=== PATIENT | female | born 1955 | race Caucasian/White ===

== ENCOUNTER 2020-03-06 10:36 | Inpatient (IN) | payer SELFPAY ==
[2020-03-06] MEDS ORDERED: SODIUM CHLORIDE 0.9% 500 ML INFUS.BAG IV ONE (11:56)
[2020-03-06] MEDS ORDERED: ACETAMINOPHEN 1000 MG/100 ML VIAL (NON FORMULARY) IVPB PRN (12:10)
[2020-03-06] MEDS ORDERED: ACETAMINOPHEN INJECTION 100 ML IVPB ONE (12:25)
[2020-03-06 12:27] LABS: EPI CELLS 19 /uL (0-25.1); HYALINE CASTS 1 /uL (0-3.1); PH,URINE 6.5 (5.0-8.0); URINE APPEARANCE CLEAR; URINE BACTERIA 893 /uL (0-1359); URINE BILIRUBIN NEGATIVE (NEGATIVE); URINE COLOR YELLOW; URINE GLUCOSE (UA) NEGATIVE (NEGATIVE); URINE KETONE TRACE (NEGATIVE); URINE LEUK ESTERASE NEGATIVE (NEGATIVE); URINE NITRITE NEGATIVE (NEGATIVE); URINE PROTEIN 2+ (NEGATIVE); URINE RBC 22 /uL (0-23.9); URINE WBC 4 /uL (0-25.8)
[2020-03-06 12:30] LABS: INR 0.99 (0.83-1.09)
[2020-03-06 12:31] LABS: BASO % 0.1 % (0-2.0); HEMATOCRIT 40.2 % (32.4-45.2); HEMOGLOBIN 13.6 GM/dL (10.7-15.3); LYMPH % 11.6 % (8-40); MCH 32.4 pg (25.7-33.7); MCHC 33.8 g/dl (32.0-36.0); MEAN CELL VOLUME 95.7 fl (80-96); MEAN PLT VOLUME 8.3 fl (7.5-11.1); MONO % 6.4 % (3.8-10.2); NEUT % 81.9 % (42.8-82.8); PLATELET COUNT 218 K/MM3 (134-434); RDW 13.1 % (11.6-15.6)
[2020-03-06 12:32] LABS: ACTIVATED PTT 29.4 SECONDS (25.2-36.5)
[2020-03-06 12:43] LABS: CHLORIDE 94 mmol/L (98-107); POTASSIUM 3.6 mmol/L (3.5-5.1); SODIUM 127 mmol/L (136-145)
[2020-03-06 12:45] LABS: CALCIUM 8.2 mg/dL (8.5-10.1)
[2020-03-06 12:47] LABS: ALBUMIN 3.1 g/dl (3.4-5.0); ANION GAP 8 MMOL/L (8-16); BLOOD UREA NITROGEN 12.2 mg/dL (7-18); CO2 25 mmol/L (21-32); GLUCOSE,RANDOM 121 mg/dL (74-106)
[2020-03-06 12:50] LABS: CREATININE 0.7 mg/dL (0.55-1.3); SGOT/AST 55 U/L (15-37); SGPT/ALT 29 U/L (13-61)
[2020-03-06 12:51] LABS: BILIRUBIN,TOTAL 0.6 mg/dL (0.2-1); TOT PROT 7.3 g/dl (6.4-8.2)
[2020-03-06 12:52] LABS: ALK PHOS 68 U/L (45-117)
[2020-03-06 12:54] LABS: LDH 391 U/L (84-246)
[2020-03-06] MEDS ORDERED: FAMOTIDINE 20 MG/50 ML IVPB 20 MG/50 ML MG IVPB ONE ×2 (12:55→13:02)
[2020-03-06] MEDS ORDERED: DEXAMETHASONE SOD PHOSPHATE 4 MG/1 ML VIAL IVPUSH ONE (13:29)
[2020-03-06] MEDS ORDERED: CEFTRIAXONE 1,000 MG in DEXTROSE 5%-WATER - 50 ML IVPB ONE (13:35)
[2020-03-06] MEDS ORDERED: DEXAMETHASONE SOD PHOSPHATE 10 MG/1 ML VIAL ONE (13:37)
[2020-03-06] MEDS ORDERED: CEFTRIAXONE 1 GM/50 ML BAG ONE (13:38)
[2020-03-06] MEDS ORDERED: ACETAMINOPHEN 1000 MG/100 ML VIAL (NON FORMULARY) IVPB SCH (15:00)
[2020-03-06 16:57] LABS: VENOUS BASE EXCESS -4.7 mmol/L (-2-2); VENOUS O2 SATURATION 91.4 % (70-80); VENOUS PH 7.405 (7.310-7.410)
[2020-03-06] MEDS ORDERED: REMDESIVIR 200 MG in SODIUM CHLORIDE 210 ML IVPB ONE (19:00)
[2020-03-07] MEDS ORDERED: ENOXAPARIN NA (PORCINE) 80 MG/0.8 ML DISP.SYRIN SQ SCH (10:00)
[2020-03-07] MEDS ORDERED: DEXAMETHASONE SOD PHOSPHATE 4 MG/1 ML VIAL IVPUSH SCH (10:00)
[2020-03-07] MEDS: ZINC SULFATE 220 MG CAPSULE (FP) PO SCH ×2 (10:24→21:05)
[2020-03-07] MEDS: ASCORBIC ACID 500 MG TABLET (FP) PO SCH ×2 (10:24→21:05)
[2020-03-07] MEDS: CHOLECALCIFEROL (VIT D3) 1,000 UNIT (25 MCG) TABLET PO SCH (10:24)
[2020-03-07 10:26] LABS: HEMATOCRIT 37.8 % (32.4-45.2); HEMOGLOBIN 12.9 GM/dL (10.7-15.3); MCH 32.6 pg (25.7-33.7); MCHC 34.1 g/dl (32.0-36.0); MEAN CELL VOLUME 95.5 fl (80-96); MEAN PLT VOLUME 8.2 fl (7.5-11.1); MONO % 7.4 % (3.8-10.2); NEUT % 79.6 % (42.8-82.8); PLATELET COUNT 228 K/MM3 (134-434); RBC 3.96 M/mm3 (3.60-5.2); RDW 13.5 % (11.6-15.6); WHITE BLOOD COUNT 8.5 K/mm3 (4.0-10.0)
[2020-03-07 10:49] LABS: POTASSIUM 3.6 mmol/L (3.5-5.1)
[2020-03-07 11:02] LABS: ALBUMIN 2.8 g/dl (3.4-5.0); CALCIUM 8.7 mg/dL (8.5-10.1)
[2020-03-07 11:03] LABS: BLOOD UREA NITROGEN 14.7 mg/dL (7-18)
[2020-03-07 11:05] LABS: CREATININE 0.6 mg/dL (0.55-1.3)
[2020-03-07 11:07] LABS: BILIRUBIN,TOTAL 0.5 mg/dL (0.2-1); TOT PROT 6.9 g/dl (6.4-8.2)
[2020-03-07] MEDS: AZITHROMYCIN IVPB 250 MG in DEXTROSE 5%-WATER - 250 ML IVPB SCH (12:20)
[2020-03-07] MEDS ORDERED: ACETAMINOPHEN 500 MG TABLET (FP) PO PRN (16:19)
[2020-03-07] MEDS: REMDESIVIR 100 MG in SODIUM CHLORIDE 230 ML IVPB SCH (18:01)
[2020-03-08 09:44] LABS: HEMATOCRIT 36.4 % (32.4-45.2); HEMOGLOBIN 12.4 GM/dL (10.7-15.3); LYMPH % 14.9 % (8-40); MCH 32.8 pg (25.7-33.7); MEAN CELL VOLUME 96.4 fl (80-96); MONO % 10.1 % (3.8-10.2); PLATELET COUNT 286 K/MM3 (134-434); RBC 3.78 M/mm3 (3.60-5.2); RDW 13.4 % (11.6-15.6); WHITE BLOOD COUNT 9.4 K/mm3 (4.0-10.0)
[2020-03-08] MEDS: CHOLECALCIFEROL (VIT D3) 1,000 UNIT (25 MCG) TABLET PO SCH (09:46)
[2020-03-08] MEDS: ENOXAPARIN NA (PORCINE) 40 MG/0.4 ML DISP.SYRIN SQ SCH (09:46)
[2020-03-08] MEDS: ZINC SULFATE 220 MG CAPSULE (FP) PO SCH ×2 (09:46→21:03)
[2020-03-08] MEDS: ASCORBIC ACID 500 MG TABLET (FP) PO SCH ×2 (09:46→21:03)
[2020-03-08] MEDS: DEXAMETHASONE SOD PHOSPHATE 4 MG/1 ML VIAL IVPUSH SCH (09:47)
[2020-03-08 09:52] LABS: POTASSIUM 3.8 mmol/L (3.5-5.1)
[2020-03-08 09:57] LABS: ALBUMIN 2.7 g/dl (3.4-5.0); BLOOD UREA NITROGEN 20.2 mg/dL (7-18); CALCIUM 8.2 mg/dL (8.5-10.1)
[2020-03-08 10:00] LABS: CREATININE 0.6 mg/dL (0.55-1.3)
[2020-03-08 10:02] LABS: TOT PROT 6.4 g/dl (6.4-8.2)
[2020-03-08 10:06] LABS: BILIRUBIN,TOTAL 0.5 mg/dL (0.2-1)
[2020-03-08] MEDS: FAMOTIDINE 20 MG TABLET PO SCH ×2 (14:28→21:03)
[2020-03-08] MEDS: AZITHROMYCIN IVPB 250 MG in DEXTROSE 5%-WATER - 250 ML IVPB SCH (14:51)
[2020-03-08] MEDS: REMDESIVIR 100 MG in SODIUM CHLORIDE 230 ML IVPB SCH (18:04)
[2020-03-08] MEDS ORDERED: ONDANSETRON 4 MG/2 ML VIAL IVPUSH ONE (21:40)
[2020-03-09 08:52] LABS: BASO % 0.1 % (0-2.0); EOS % 0.1 % (0-4.5); HEMATOCRIT 38.4 % (32.4-45.2); HEMOGLOBIN 13.1 GM/dL (10.7-15.3); LYMPH % 15.1 % (8-40); MCH 32.4 pg (25.7-33.7); MEAN CELL VOLUME 95.3 fl (80-96); MEAN PLT VOLUME 7.3 fl (7.5-11.1); MONO % 6.2 % (3.8-10.2); NEUT % 78.5 % (42.8-82.8); PLATELET COUNT 367 K/MM3 (134-434); RBC 4.03 M/mm3 (3.60-5.2); RDW 13.2 % (11.6-15.6); WHITE BLOOD COUNT 11.2 K/mm3 (4.0-10.0)
[2020-03-09 09:16] LABS: POTASSIUM 3.7 mmol/L (3.5-5.1)
[2020-03-09 09:22] LABS: BLOOD UREA NITROGEN 17.3 mg/dL (7-18); CALCIUM 8.3 mg/dL (8.5-10.1)
[2020-03-09 09:23] LABS: ALBUMIN 2.8 g/dl (3.4-5.0)
[2020-03-09] MEDS: ASCORBIC ACID 500 MG TABLET (FP) PO SCH ×2 (09:24→21:13)
[2020-03-09] MEDS: FAMOTIDINE 20 MG TABLET PO SCH ×2 (09:24→21:13)
[2020-03-09] MEDS: CHOLECALCIFEROL (VIT D3) 1,000 UNIT (25 MCG) TABLET PO SCH (09:24)
[2020-03-09] MEDS: DEXAMETHASONE SOD PHOSPHATE 4 MG/1 ML VIAL IVPUSH SCH (09:24)
[2020-03-09] MEDS: AZITHROMYCIN IVPB 250 MG in DEXTROSE 5%-WATER - 250 ML IVPB SCH (09:24)
[2020-03-09] MEDS: ENOXAPARIN NA (PORCINE) 40 MG/0.4 ML DISP.SYRIN SQ SCH (09:24)
[2020-03-09] MEDS: ZINC SULFATE 220 MG CAPSULE (FP) PO SCH ×2 (09:25→21:13)
[2020-03-09 09:26] LABS: CREATININE 0.7 mg/dL (0.55-1.3)
[2020-03-09 09:27] LABS: BILIRUBIN,TOTAL 1.3 mg/dL (0.2-1); TOT PROT 6.5 g/dl (6.4-8.2)
[2020-03-09] MEDS ORDERED: ONDANSETRON 4 MG/2 ML VIAL IVPUSH PRN (10:52)
[2020-03-09] MEDS: REMDESIVIR 100 MG in SODIUM CHLORIDE 230 ML IVPB SCH (18:33)
[2020-03-10 09:47] LABS: BASO % 0.1 % (0-2.0); EOS % 0.2 % (0-4.5); HEMATOCRIT 37.7 % (32.4-45.2); LYMPH % 6.7 % (8-40); MCHC 34.4 g/dl (32.0-36.0); MEAN CELL VOLUME 95.8 fl (80-96); MEAN PLT VOLUME 7.5 fl (7.5-11.1); MONO % 2.2 % (3.8-10.2); NEUT % 90.8 % (42.8-82.8); PLATELET COUNT 324 K/MM3 (134-434); RBC 3.94 M/mm3 (3.60-5.2); RDW 13.3 % (11.6-15.6); WHITE BLOOD COUNT 11.5 K/mm3 (4.0-10.0)
[2020-03-10 10:26] LABS: POTASSIUM 3.8 mmol/L (3.5-5.1)
[2020-03-10 10:32] LABS: ALBUMIN 2.6 g/dl (3.4-5.0)
[2020-03-10 10:35] LABS: CREATININE 0.7 mg/dL (0.55-1.3)
[2020-03-10 10:37] LABS: BILIRUBIN,TOTAL 0.8 mg/dL (0.2-1); TOT PROT 6.3 g/dl (6.4-8.2)
[2020-03-10] MEDS: DEXAMETHASONE SOD PHOSPHATE 4 MG/1 ML VIAL IVPUSH SCH (10:39)
[2020-03-10] MEDS: ZINC SULFATE 220 MG CAPSULE (FP) PO SCH ×2 (10:40→21:14)
[2020-03-10] MEDS: ASCORBIC ACID 500 MG TABLET (FP) PO SCH ×2 (10:40→21:13)
[2020-03-10] MEDS: AZITHROMYCIN IVPB 250 MG in DEXTROSE 5%-WATER - 250 ML IVPB SCH (10:40)
[2020-03-10] MEDS: CHOLECALCIFEROL (VIT D3) 1,000 UNIT (25 MCG) TABLET PO SCH (10:40)
[2020-03-10] MEDS: FAMOTIDINE 20 MG TABLET PO SCH ×2 (10:40→21:14)
[2020-03-10] MEDS: ENOXAPARIN NA (PORCINE) 40 MG/0.4 ML DISP.SYRIN SQ SCH (10:40)
[2020-03-10 13:59] LABS: ANISOCYTOSIS 0; MACROCYTOSIS 0; PLATELET ESTIMATE NORMAL
[2020-03-10] MEDS: REMDESIVIR 100 MG in SODIUM CHLORIDE 230 ML IVPB SCH (18:20)
[2020-03-10] MEDS: MAG HYDROX/AL HYDROX/SIMETH 30 ML UNIT-DOSE CUP PO PRN (20:46)
[2020-03-10] MEDS ORDERED: ENOXAPARIN NA (PORCINE) 60 MG/0.6 ML DISP.SYRIN SQ SCH (22:00)
[2020-03-10] MEDS ORDERED: DEXTROSE 5%-WATER - 50 ML IVPB ONE (23:45)
[2020-03-10] MEDS ORDERED: cefTRIAXone SODIUM 1 GM VIAL ONE (23:45)
[2020-03-10] MEDS: CEFTRIAXONE 1 GM in DEXTROSE 5%-WATER - 50 ML IVPB SCH (23:54)
[2020-03-10] MEDS: ENOXAPARIN NA (PORCINE) 80 MG/0.8 ML DISP.SYRIN SQ SCH (23:55)
[2020-03-11] MEDS: ALBUTEROL SO4 HFA INHALER IH PRN ×2 (02:38→06:20)
[2020-03-11] MEDS: MAG HYDROX/AL HYDROX/SIMETH 30 ML UNIT-DOSE CUP PO PRN (02:38)
[2020-03-11 09:06] LABS: BASO % 0.1 % (0-2.0); EOS % 0.3 % (0-4.5); HEMATOCRIT 35.5 % (32.4-45.2); HEMOGLOBIN 12.3 GM/dL (10.7-15.3); LYMPH % 6.1 % (8-40); MCH 33.1 pg (25.7-33.7); MCHC 34.6 g/dl (32.0-36.0); MEAN CELL VOLUME 95.7 fl (80-96); MEAN PLT VOLUME 7.4 fl (7.5-11.1); MONO % 2.4 % (3.8-10.2); NEUT % 91.1 % (42.8-82.8); PLATELET COUNT 282 K/MM3 (134-434); RBC 3.71 M/mm3 (3.60-5.2); RDW 13.5 % (11.6-15.6); WHITE BLOOD COUNT 13.5 K/mm3 (4.0-10.0)
[2020-03-11] MEDS ORDERED: DEXTROSE 5%-WATER - 50 ML IVPB ONE (09:19)
[2020-03-11] MEDS ORDERED: cefTRIAXone SODIUM 1 GM VIAL ONE (09:19)
[2020-03-11] MEDS: ENOXAPARIN NA (PORCINE) 80 MG/0.8 ML DISP.SYRIN SQ SCH ×2 (09:20→21:07)
[2020-03-11] MEDS: ASCORBIC ACID 500 MG TABLET (FP) PO SCH ×2 (09:20→21:07)
[2020-03-11] MEDS: CHOLECALCIFEROL (VIT D3) 1,000 UNIT (25 MCG) TABLET PO SCH (09:20)
[2020-03-11] MEDS: ZINC SULFATE 220 MG CAPSULE (FP) PO SCH ×2 (09:20→21:07)
[2020-03-11] MEDS: FAMOTIDINE 20 MG TABLET PO SCH ×2 (09:21→21:07)
[2020-03-11] MEDS: CEFTRIAXONE 1 GM in DEXTROSE 5%-WATER - 50 ML IVPB SCH (09:21)
[2020-03-11] MEDS: DEXAMETHASONE SOD PHOSPHATE 4 MG/1 ML VIAL IVPUSH SCH (09:21)
[2020-03-11 09:31] LABS: POTASSIUM 3.8 mmol/L (3.5-5.1)
[2020-03-11 09:52] LABS: BILIRUBIN,TOTAL 0.7 mg/dL (0.2-1)
[2020-03-11 09:53] LABS: TOT PROT 5.9 g/dl (6.4-8.2)
[2020-03-11 10:01] LABS: ALBUMIN 2.5 g/dl (3.4-5.0); BLOOD UREA NITROGEN 18.3 mg/dL (7-18); CALCIUM 8.3 mg/dL (8.5-10.1)
[2020-03-11 10:04] LABS: CREATININE 0.5 mg/dL (0.55-1.3)
[2020-03-11 11:35] LABS: ANISOCYTOSIS 1+; MACROCYTOSIS 2+; PLATELET ESTIMATE NORMAL
[2020-03-11] MEDS: AZITHROMYCIN IVPB 250 MG in DEXTROSE 5%-WATER - 250 ML IVPB SCH (12:01)
[2020-03-11] MEDS ORDERED: RAMELTEON 8 MG TABLET PO ONE (23:30)
[2020-03-12] MEDS ORDERED: DEXTROSE 5%-WATER - 50 ML IVPB ONE (09:22)
[2020-03-12] MEDS ORDERED: cefTRIAXone SODIUM 1 GM VIAL ONE (09:22)
[2020-03-12] MEDS: DEXAMETHASONE SOD PHOSPHATE 4 MG/1 ML VIAL IVPUSH SCH (09:24)
[2020-03-12] MEDS: ENOXAPARIN NA (PORCINE) 80 MG/0.8 ML DISP.SYRIN SQ SCH ×2 (09:24→21:18)
[2020-03-12] MEDS: ZINC SULFATE 220 MG CAPSULE (FP) PO SCH ×2 (09:25→21:18)
[2020-03-12] MEDS: ASCORBIC ACID 500 MG TABLET (FP) PO SCH ×2 (09:25→21:18)
[2020-03-12] MEDS: CEFTRIAXONE 1 GM in DEXTROSE 5%-WATER - 50 ML IVPB SCH (09:25)
[2020-03-12] MEDS: CHOLECALCIFEROL (VIT D3) 1,000 UNIT (25 MCG) TABLET PO SCH (09:25)
[2020-03-12] MEDS: FAMOTIDINE 20 MG TABLET PO SCH ×2 (09:25→21:18)
[2020-03-12] MEDS: MUPIROCIN 2% TOPICAL OINTMENT FOR DECOLONIZATION NS SCH ×2 (09:51→21:18)
[2020-03-12] MEDS ORDERED: PT OWN MED DRAWER 7, Y5N ONE ×2 (09:51→10:13)
[2020-03-12 10:09] LABS: BASO % 0.1 % (0-2.0); EOS % 0.2 % (0-4.5); HEMATOCRIT 36.6 % (32.4-45.2); HEMOGLOBIN 12.3 GM/dL (10.7-15.3); LYMPH % 4.1 % (8-40); MCH 32.5 pg (25.7-33.7); MCHC 33.7 g/dl (32.0-36.0); MEAN CELL VOLUME 96.6 fl (80-96); MEAN PLT VOLUME 7.4 fl (7.5-11.1); NEUT % 93.6 % (42.8-82.8); PLATELET COUNT 307 K/MM3 (134-434); RBC 3.79 M/mm3 (3.60-5.2); RDW 13.3 % (11.6-15.6); WHITE BLOOD COUNT 13.5 K/mm3 (4.0-10.0)
[2020-03-12] MEDS: AZITHROMYCIN IVPB 250 MG in DEXTROSE 5%-WATER - 250 ML IVPB SCH (10:14)
[2020-03-12 10:26] LABS: ALBUMIN 2.4 g/dl (3.4-5.0); CALCIUM 8.2 mg/dL (8.5-10.1)
[2020-03-12 10:27] LABS: BLOOD UREA NITROGEN 19.2 mg/dL (7-18)
[2020-03-12 10:30] LABS: BILIRUBIN,TOTAL 0.7 mg/dL (0.2-1); CREATININE 0.4 mg/dL (0.55-1.3)
[2020-03-12 10:55] LABS: ANISOCYTOSIS 0; MACROCYTOSIS 0; PLATELET ESTIMATE NORMAL
[2020-03-12] MEDS: guaiFENesin/D-METHORPHAN HB 10 ML UNIT-DOSE CUPS PO PRN (10:55)
[2020-03-12] MEDS ORDERED: SODIUM CHLORIDE 1,000 ML IV SCH (13:30)
[2020-03-12] MEDS ORDERED: ONDANSETRON 4 MG/2 ML VIAL IVPUSH PRN (20:04)
[2020-03-12] MEDS ORDERED: ACETAMINOPHEN 500 MG TABLET (FP) PO PRN (20:04)
[2020-03-12] MEDS ORDERED: ALBUTEROL SO4 HFA INHALER IH PRN (20:04)
[2020-03-12] MEDS ORDERED: MAG HYDROX/AL HYDROX/SIMETH 30 ML UNIT-DOSE CUP PO PRN (20:04)
[2020-03-12] MEDS: CHLORHEXIDINE GLUCONATE 4% CLEANSER FOR DECOLONIZATION TP SCH (21:19)
[2020-03-12] MEDS ORDERED: DEXAMETHASONE SOD PHOSPHATE 4 MG/1 ML VIAL IVPUSH ONE (22:00)
[2020-03-13 07:02] LABS: HEMATOCRIT 36.8 % (32.4-45.2); HEMOGLOBIN 12.6 GM/dL (10.7-15.3); LYMPH % 4.7 % (8-40); MCH 32.9 pg (25.7-33.7); MCHC 34.3 g/dl (32.0-36.0); MONO % 2.2 % (3.8-10.2); NEUT % 93.1 % (42.8-82.8); PLATELET COUNT 325 K/MM3 (134-434); RBC 3.84 M/mm3 (3.60-5.2); RDW 13.3 % (11.6-15.6); WHITE BLOOD COUNT 11.1 K/mm3 (4.0-10.0)
[2020-03-13 07:25] LABS: POTASSIUM 4.1 mmol/L (3.5-5.1)
[2020-03-13 07:32] LABS: ALBUMIN 2.3 g/dl (3.4-5.0); BLOOD UREA NITROGEN 16.3 mg/dL (7-18); CALCIUM 7.9 mg/dL (8.5-10.1)
[2020-03-13 07:33] LABS: MAGNESIUM 2.3 mg/dL (1.8-2.4)
[2020-03-13 07:35] LABS: CREATININE 0.5 mg/dL (0.55-1.3)
[2020-03-13 07:36] LABS: BILIRUBIN,TOTAL 0.4 mg/dL (0.2-1); PHOSPHOROUS 3.5 mg/dL (2.5-4.9)
[2020-03-13] MEDS ORDERED: cefTRIAXone SODIUM 1 GM VIAL ONE (08:13)
[2020-03-13] MEDS ORDERED: DEXTROSE 5%-WATER - 50 ML IVPB ONE (08:13)
[2020-03-13] MEDS ORDERED: CEFTRIAXONE 1 GM in DEXTROSE 5%-WATER - 50 ML IVPB SCH (10:00)
[2020-03-13] MEDS: CHOLECALCIFEROL (VIT D3) 1,000 UNIT (25 MCG) TABLET PO SCH (10:05)
[2020-03-13] MEDS: ZINC SULFATE 220 MG CAPSULE (FP) PO SCH ×2 (10:05→21:05)
[2020-03-13] MEDS: ASCORBIC ACID 500 MG TABLET (FP) PO SCH ×2 (10:06→21:05)
[2020-03-13] MEDS: FAMOTIDINE 20 MG TABLET PO SCH ×2 (10:06→21:05)
[2020-03-13] MEDS: MUPIROCIN 2% TOPICAL OINTMENT FOR DECOLONIZATION NS SCH ×2 (10:19→21:05)
[2020-03-13] MEDS: DEXAMETHASONE SOD PHOSPHATE 4 MG/1 ML VIAL IVPUSH SCH (10:19)
[2020-03-13 10:32] LABS: ANISOCYTOSIS 0; MACROCYTOSIS 0; PLATELET ESTIMATE NORMAL
[2020-03-13] MEDS: ENOXAPARIN NA (PORCINE) 80 MG/0.8 ML DISP.SYRIN SQ SCH ×2 (11:00→21:04)
[2020-03-13] MEDS ORDERED: MORPHINE SULFATE 2 MG/ML VIAL IVPUSH ONE (12:58)
[2020-03-13] MEDS ORDERED: AMINO ACIDS 4.25%/D5W 1,000 ML IV SCH (13:00)
[2020-03-13] MEDS: guaiFENesin/D-METHORPHAN HB 10 ML UNIT-DOSE CUPS PO PRN (13:29)
[2020-03-13] MEDS: AMINO ACIDS 4.25%/D5W 1,000 ML IV SCH (17:00)
[2020-03-13] MEDS: MULTIVIT INJ. ADULT COMBO WITH VIT K 1 COMBO 10 ML VIAL IV SCH (18:00)
[2020-03-13] MEDS: CHLORHEXIDINE GLUCONATE 4% CLEANSER FOR DECOLONIZATION TP SCH (21:05)
[2020-03-14] MEDS ORDERED: amLODIPine BESYLATE 10 MG TABLET (FP) PO ONE (00:05)
[2020-03-14] MEDS: AMINO ACIDS 4.25%/D5W 1,000 ML IV SCH (01:34)
[2020-03-14 07:41] LABS: POTASSIUM 3.8 mmol/L (3.5-5.1)
[2020-03-14 07:42] LABS: LYMPH % 2.6 % (8-40); MCH 31.9 pg (25.7-33.7); MCHC 33.4 g/dl (32.0-36.0); MEAN CELL VOLUME 95.6 fl (80-96); MEAN PLT VOLUME 7.2 fl (7.5-11.1); MONO % 3.5 % (3.8-10.2); NEUT % 93.9 % (42.8-82.8); PLATELET COUNT 426 K/MM3 (134-434); RDW 13.5 % (11.6-15.6); WHITE BLOOD COUNT 20.6 K/mm3 (4.0-10.0)
[2020-03-14 07:53] LABS: ALBUMIN 2.5 g/dl (3.4-5.0); BLOOD UREA NITROGEN 16.3 mg/dL (7-18); CALCIUM 8.2 mg/dL (8.5-10.1)
[2020-03-14 07:56] LABS: CREATININE 0.4 mg/dL (0.55-1.3); PHOSPHOROUS 2.5 mg/dL (2.5-4.9)
[2020-03-14 07:57] LABS: BILIRUBIN,TOTAL 0.6 mg/dL (0.2-1); TOT PROT 6.7 g/dl (6.4-8.2)
[2020-03-14] MEDS ORDERED: MIDAZOLAM HCL 2 MG/2 ML SINGLE DOSE VIAL IVPUSH ONE (08:43)
[2020-03-14] MEDS ORDERED: ROCURONIUM BROMIDE 50 MG/5 ML VIAL IV ONE ×2 (08:44→11:51)
[2020-03-14] MEDS ORDERED: KETAMINE HCL 200 MG/20 ML VIAL IVPUSH ONE (08:44)
[2020-03-14] MEDS ORDERED: RAPID SEQUENCE INTUBATION KIT NR ONE (08:46)
[2020-03-14] MEDS ORDERED: PROPOFOL 200 MG/20 ML VIAL IVPUSH ONE (08:50)
[2020-03-14] MEDS ORDERED: PROPOFOL 1,000,000 MCG/100 ML VIAL ONE (08:51)
[2020-03-14] MEDS ORDERED: PHENYLEPHRINE HCL 10 MG/1 ML SINGLE DOSE VIAL ONE ×2 (08:51→09:02)
[2020-03-14] MEDS ORDERED: MIDAZOLAM 100 MG/100 ML MG IVPB ONE ×2 (09:08→23:25)
[2020-03-14] MEDS: PHENYLEPHRINE NS PREMIX 50,000 MCG/500 ML BAG CVP SCH (09:10)
[2020-03-14] MEDS: MIDAZOLAM 100 MG in SODIUM CHLORIDE 100 ML IVPB SCH (09:15)
[2020-03-14] MEDS: FENTANYL IVPB 500 MCG/100 ML BAG IVPB SCH ×2 (09:27→23:30)
[2020-03-14] MEDS: SODIUM CHLORIDE 1,000 ML IV SCH (09:54)
[2020-03-14] MEDS ORDERED: DEXTROSE 5%-WATER 100 ML IVPB ONE ×2 (10:17→18:23)
[2020-03-14] MEDS ORDERED: PIPERACILLIN/TAZOBACTAM 4.5 GM VIAL IVPB ONE ×2 (10:17→18:23)
[2020-03-14] MEDS: PIPERACILLIN/TAZOB 4.5 GM 4.5 GM in DEXTROSE 5%-WATER 100 ML IVPB SCH ×2 (10:34→18:28)
[2020-03-14] MEDS: DEXAMETHASONE SOD PHOSPHATE 4 MG/1 ML VIAL IVPUSH SCH (10:35)
[2020-03-14] MEDS ORDERED: MAG HYDROX/AL HYDROX/SIMETH 30 ML UNIT-DOSE CUP NGT PRN (10:46)
[2020-03-14] MEDS ORDERED: ACETAMINOPHEN 1000 MG/100 ML VIAL (NON FORMULARY) IVPB PRN (10:47)
[2020-03-14] MEDS: MUPIROCIN 2% TOPICAL OINTMENT FOR DECOLONIZATION NS SCH ×2 (11:00→22:29)
[2020-03-14 11:04] LABS: ARTERIAL BLD GAS O2 SATURATION 82.1 mmHg (95-98); ARTERIAL BLOOD GAS BASE EXCESS -1.2 mmol/L (-2-2); ARTERIAL BLOOD GAS PO2 49.7 mmHg (80-100); ARTERIAL BLOOD GAS pH 7.327 (7.350-7.450)
[2020-03-14 11:08] LABS: ALLENS TEST POSITIVE; VENT MODE A/C; VENT RATE 30
[2020-03-14] MEDS ORDERED: VECURONIUM BROMIDE 10 MG/10 ML VIAL IVPUSH ONE (11:22)
[2020-03-14] MEDS ORDERED: VECURONIUM BROMIDE 10 MG/10 ML VIAL ONE (11:27)
[2020-03-14] MEDS: CHOLECALCIFEROL (VIT D3) 1,000 UNIT (25 MCG) TABLET PO SCH (11:32)
[2020-03-14] MEDS ORDERED: FENTANYL NS IVPB 500 MCG/100 ML BAG IVPB ONE ×2 (13:35→17:37)
[2020-03-14] MEDS: ENOXAPARIN NA (PORCINE) 80 MG/0.8 ML DISP.SYRIN SQ SCH ×2 (14:04→22:28)
[2020-03-14] MEDS: VECURONIUM BROMIDE 100 MG/100 ML BAG IVPB SCH (15:00)
[2020-03-14 15:35] LABS: ANISOCYTOSIS 1+; MACROCYTOSIS 1+; PLATELET ESTIMATE NORMAL
[2020-03-14] MEDS: MULTIVIT INJ. ADULT COMBO WITH VIT K 1 COMBO 10 ML VIAL IV SCH (16:40)
[2020-03-14] MEDS: CHLORHEXIDINE GLUCONATE 4% CLEANSER FOR DECOLONIZATION TP SCH (22:28)
[2020-03-14] MEDS: ZINC SULFATE 220 MG CAPSULE (FP) NGT SCH (22:29)
[2020-03-14] MEDS: FAMOTIDINE 20 MG TABLET NGT SCH (22:29)
[2020-03-14] MEDS: ASCORBIC ACID 500 MG TABLET (FP) NGT SCH (22:29)
[2020-03-15] MEDS: MIDAZOLAM 100 MG in SODIUM CHLORIDE 100 ML IVPB SCH ×2 (02:05→09:36)
[2020-03-15] MEDS: PIPERACILLIN/TAZOB 4.5 GM 4.5 GM in DEXTROSE 5%-WATER 100 ML IVPB SCH (02:51)
[2020-03-15] MEDS ORDERED: PIPERACILLIN/TAZOBACTAM 4.5 GM VIAL IVPB ONE (03:46)
[2020-03-15] MEDS ORDERED: DEXTROSE 5%-WATER 100 ML IVPB ONE (03:47)
[2020-03-15 06:03] LABS: ARTERIAL BLOOD GAS BASE EXCESS -4.1 mmol/L (-2-2); ARTERIAL BLOOD GAS PO2 46.1 mmHg (80-100); ARTERIAL BLOOD GAS pH 7.275 (7.350-7.450)
[2020-03-15 06:07] LABS: ALLENS TEST POSITIVE; VENT MODE A/C; VENT RATE 30
[2020-03-15 07:13] LABS: HEMATOCRIT 37.8 % (32.4-45.2); HEMOGLOBIN 12.9 GM/dL (10.7-15.3); LYMPH % 2.2 % (8-40); MCH 33.3 pg (25.7-33.7); MCHC 34.3 g/dl (32.0-36.0); MEAN CELL VOLUME 97.3 fl (80-96); MEAN PLT VOLUME 6.7 fl (7.5-11.1); MONO % 1.2 % (3.8-10.2); NEUT % 96.6 % (42.8-82.8); PLATELET COUNT 343 K/MM3 (134-434); RBC 3.88 M/mm3 (3.60-5.2); RDW 13.8 % (11.6-15.6); WHITE BLOOD COUNT 19.2 K/mm3 (4.0-10.0)
[2020-03-15 07:40] LABS: POTASSIUM 4.1 mmol/L (3.5-5.1)
[2020-03-15 07:48] LABS: CALCIUM 7.6 mg/dL (8.5-10.1)
[2020-03-15 07:49] LABS: MAGNESIUM 2.1 mg/dL (1.8-2.4)
[2020-03-15 07:52] LABS: CREATININE 0.5 mg/dL (0.55-1.3); PHOSPHOROUS 2.9 mg/dL (2.5-4.9)
[2020-03-15 07:53] LABS: BILIRUBIN,TOTAL 0.6 mg/dL (0.2-1); TOT PROT 5.7 g/dl (6.4-8.2)
[2020-03-15] MEDS: PHENYLEPHRINE NS PREMIX 50,000 MCG/500 ML BAG CVP SCH (09:36)
[2020-03-15] MEDS: FENTANYL IVPB 500 MCG/100 ML BAG IVPB SCH (09:36)
[2020-03-15] MEDS: MUPIROCIN 2% TOPICAL OINTMENT FOR DECOLONIZATION NS SCH ×2 (09:37→21:38)
[2020-03-15] MEDS: SODIUM CHLORIDE 1,000 ML IV SCH (09:37)
[2020-03-15] MEDS: ASCORBIC ACID 500 MG TABLET (FP) NGT SCH ×2 (09:41→21:40)
[2020-03-15] MEDS: DEXAMETHASONE SOD PHOSPHATE 4 MG/1 ML VIAL IVPUSH SCH (09:41)
[2020-03-15] MEDS: ZINC SULFATE 220 MG CAPSULE (FP) NGT SCH ×2 (09:41→21:40)
[2020-03-15] MEDS: CHOLECALCIFEROL (VIT D3) 1,000 UNIT (25 MCG) TABLET PO SCH (09:41)
[2020-03-15] MEDS: ENOXAPARIN NA (PORCINE) 80 MG/0.8 ML DISP.SYRIN SQ SCH ×2 (09:41→21:40)
[2020-03-15 09:42] LABS: ANISOCYTOSIS 1+; MACROCYTOSIS 1+; PLATELET ESTIMATE NORMAL
[2020-03-15] MEDS: FAMOTIDINE 20 MG TABLET NGT SCH ×2 (09:42→21:40)
[2020-03-15] MEDS ORDERED: PIPERACILLIN/TAZOBACTAM 3.375 GM VIAL IVPB ONE ×2 (10:13→19:34)
[2020-03-15] MEDS ORDERED: DEXTROSE 5%-WATER - 50 ML IVPB ONE ×2 (10:14→19:34)
[2020-03-15] MEDS: PIPERACILLIN/TAZOB 3.375 GM 3.375 GM in DEXTROSE 5%-WATER - 50 ML IVPB SCH ×2 (10:16→19:50)
[2020-03-15] MEDS: VECURONIUM BROMIDE 100 MG/100 ML BAG IVPB SCH (13:55)
[2020-03-15] MEDS: MULTIVIT INJ. ADULT COMBO WITH VIT K 1 COMBO 10 ML VIAL IV SCH (14:28)
[2020-03-15] MEDS ORDERED: MIDAZOLAM 100 MG/100 ML MG IVPB ONE (15:13)
[2020-03-15] MEDS: CHLORHEXIDINE GLUCONATE 4% CLEANSER FOR DECOLONIZATION TP SCH (21:38)
[2020-03-16] MEDS ORDERED: DEXTROSE 5%-WATER - 50 ML IVPB ONE ×3 (00:54→17:52)
[2020-03-16] MEDS ORDERED: PIPERACILLIN/TAZOBACTAM 3.375 GM VIAL IVPB ONE ×3 (00:54→17:52)
[2020-03-16] MEDS: PIPERACILLIN/TAZOB 3.375 GM 3.375 GM in DEXTROSE 5%-WATER - 50 ML IVPB SCH ×3 (01:43→17:58)
[2020-03-16 06:12] LABS: ARTERIAL BLOOD GAS BASE EXCESS -2.8 mmol/L (-2-2); ARTERIAL BLOOD GAS pH 7.304 (7.350-7.450)
[2020-03-16 06:18] LABS: VENT MODE A/C; VENT RATE 30
[2020-03-16 07:30] LABS: EOS % 0.1 % (0-4.5); HEMATOCRIT 36.7 % (32.4-45.2); HEMOGLOBIN 12.1 GM/dL (10.7-15.3); MCH 32.3 pg (25.7-33.7); MCHC 33.1 g/dl (32.0-36.0); MEAN CELL VOLUME 97.5 fl (80-96); MONO % 2.5 % (3.8-10.2); NEUT % 95.4 % (42.8-82.8); PLATELET COUNT 269 K/MM3 (134-434); RBC 3.76 M/mm3 (3.60-5.2); RDW 14.3 % (11.6-15.6); WHITE BLOOD COUNT 17.2 K/mm3 (4.0-10.0)
[2020-03-16 07:59] LABS: POTASSIUM 4.1 mmol/L (3.5-5.1)
[2020-03-16 08:01] LABS: ALBUMIN 1.8 g/dl (3.4-5.0); BLOOD UREA NITROGEN 17.9 mg/dL (7-18); CALCIUM 7.5 mg/dL (8.5-10.1); MAGNESIUM 2.3 mg/dL (1.8-2.4)
[2020-03-16 08:04] LABS: CREATININE 0.6 mg/dL (0.55-1.3)
[2020-03-16 08:06] LABS: BILIRUBIN,TOTAL 0.3 mg/dL (0.2-1); PHOSPHOROUS 2.3 mg/dL (2.5-4.9); TOT PROT 5.4 g/dl (6.4-8.2)
[2020-03-16] MEDS ORDERED: NAPH,MB-DB/K PH,MBDB POWDER PACKET PO ONE (08:34)
[2020-03-16] MEDS ORDERED: MIDAZOLAM 100 MG/100 ML MG IVPB ONE (09:09)
[2020-03-16] MEDS: MIDAZOLAM 100 MG in SODIUM CHLORIDE 100 ML IVPB SCH (09:12)
[2020-03-16] MEDS: ASCORBIC ACID 500 MG TABLET (FP) NGT SCH ×2 (09:13→21:31)
[2020-03-16] MEDS: CHOLECALCIFEROL (VIT D3) 1,000 UNIT (25 MCG) TABLET PO SCH (09:13)
[2020-03-16] MEDS: DEXAMETHASONE SOD PHOSPHATE 4 MG/1 ML VIAL IVPUSH SCH (09:13)
[2020-03-16] MEDS: ENOXAPARIN NA (PORCINE) 80 MG/0.8 ML DISP.SYRIN SQ SCH ×2 (09:14→21:31)
[2020-03-16] MEDS: FAMOTIDINE 20 MG TABLET NGT SCH ×2 (09:14→21:32)
[2020-03-16] MEDS: MUPIROCIN 2% TOPICAL OINTMENT FOR DECOLONIZATION NS SCH ×2 (09:14→21:32)
[2020-03-16] MEDS: SODIUM CHLORIDE 1,000 ML IV SCH (09:15)
[2020-03-16] MEDS: PHENYLEPHRINE NS PREMIX 50,000 MCG/500 ML BAG CVP SCH (09:15)
[2020-03-16] MEDS: ZINC SULFATE 220 MG CAPSULE (FP) NGT SCH ×2 (09:18→21:32)
[2020-03-16 11:09] LABS: ANISOCYTOSIS 0; MACROCYTOSIS 0; PLATELET ESTIMATE NORMAL
[2020-03-16] MEDS: FENTANYL IVPB 500 MCG/100 ML BAG IVPB SCH (11:28)
[2020-03-16] MEDS: VECURONIUM BROMIDE 100 MG/100 ML BAG IVPB SCH (11:30)
[2020-03-16] MEDS: CHLORHEXIDINE GLUCONATE 4% CLEANSER FOR DECOLONIZATION TP SCH (21:32)
[2020-03-17] MEDS ORDERED: PIPERACILLIN/TAZOBACTAM 3.375 GM VIAL IVPB ONE ×3 (01:54→18:15)
[2020-03-17] MEDS ORDERED: DEXTROSE 5%-WATER - 50 ML IVPB ONE ×3 (01:54→18:15)
[2020-03-17] MEDS: PIPERACILLIN/TAZOB 3.375 GM 3.375 GM in DEXTROSE 5%-WATER - 50 ML IVPB SCH ×3 (02:18→18:16)
[2020-03-17] MEDS ORDERED: MIDAZOLAM 100 MG/100 ML MG IVPB ONE (05:17)
[2020-03-17 07:09] LABS: HEMATOCRIT 33.2 % (32.4-45.2); LYMPH % 1.9 % (8-40); MCH 32.8 pg (25.7-33.7); MCHC 33.2 g/dl (32.0-36.0); MEAN CELL VOLUME 98.8 fl (80-96); MONO % 3.3 % (3.8-10.2); NEUT % 94.8 % (42.8-82.8); PLATELET COUNT 245 K/MM3 (134-434); RBC 3.36 M/mm3 (3.60-5.2); RDW 14.2 % (11.6-15.6); WHITE BLOOD COUNT 15.4 K/mm3 (4.0-10.0)
[2020-03-17 07:20] LABS: POTASSIUM 4.2 mmol/L (3.5-5.1)
[2020-03-17 07:27] LABS: CALCIUM 7.5 mg/dL (8.5-10.1)
[2020-03-17 07:28] LABS: ALBUMIN 1.7 g/dl (3.4-5.0); BLOOD UREA NITROGEN 22.1 mg/dL (7-18); MAGNESIUM 2.2 mg/dL (1.8-2.4)
[2020-03-17 07:30] LABS: BILIRUBIN,TOTAL 0.3 mg/dL (0.2-1); CREATININE 0.5 mg/dL (0.55-1.3); TOT PROT 5.1 g/dl (6.4-8.2)
[2020-03-17 07:31] LABS: PHOSPHOROUS 2.5 mg/dL (2.5-4.9)
[2020-03-17 08:35] LABS: ANISOCYTOSIS 1+; MACROCYTOSIS 2+; PLATELET ESTIMATE NORMAL
[2020-03-17] MEDS: FENTANYL IVPB 500 MCG/100 ML BAG IVPB SCH (08:55)
[2020-03-17] MEDS: MIDAZOLAM 100 MG in SODIUM CHLORIDE 100 ML IVPB SCH (08:55)
[2020-03-17] MEDS: CHOLECALCIFEROL (VIT D3) 1,000 UNIT (25 MCG) TABLET PO SCH (09:03)
[2020-03-17] MEDS: DEXAMETHASONE SOD PHOSPHATE 4 MG/1 ML VIAL IVPUSH SCH (09:04)
[2020-03-17] MEDS: ENOXAPARIN NA (PORCINE) 80 MG/0.8 ML DISP.SYRIN SQ SCH ×2 (09:04→21:34)
[2020-03-17] MEDS: FAMOTIDINE 20 MG TABLET NGT SCH ×2 (09:04→21:34)
[2020-03-17] MEDS: ASCORBIC ACID 500 MG TABLET (FP) NGT SCH ×2 (09:04→21:34)
[2020-03-17] MEDS: ZINC SULFATE 220 MG CAPSULE (FP) NGT SCH ×2 (09:04→21:34)
[2020-03-17] MEDS: SODIUM CHLORIDE 1,000 ML IV SCH (09:05)
[2020-03-17] MEDS: PHENYLEPHRINE NS PREMIX 50,000 MCG/500 ML BAG CVP SCH (09:06)
[2020-03-17] MEDS: VECURONIUM BROMIDE 100 MG/100 ML BAG IVPB SCH (12:12)
[2020-03-17] MEDS: CHLORHEXIDINE GLUCONATE 4% CLEANSER FOR DECOLONIZATION TP SCH (21:34)
[2020-03-18] MEDS ORDERED: PIPERACILLIN/TAZOBACTAM 3.375 GM VIAL IVPB ONE ×3 (01:01→17:34)
[2020-03-18] MEDS ORDERED: MIDAZOLAM 100 MG/100 ML MG IVPB ONE ×2 (01:01→19:39)
[2020-03-18] MEDS ORDERED: DEXTROSE 5%-WATER - 50 ML IVPB ONE ×3 (01:02→17:34)
[2020-03-18] MEDS: PIPERACILLIN/TAZOB 3.375 GM 3.375 GM in DEXTROSE 5%-WATER - 50 ML IVPB SCH ×3 (01:10→17:47)
[2020-03-18] MEDS: MIDAZOLAM 100 MG in SODIUM CHLORIDE 100 ML IVPB SCH ×2 (02:00→17:50)
[2020-03-18] MEDS: FENTANYL IVPB 500 MCG/100 ML BAG IVPB SCH ×4 (03:00→21:00)
[2020-03-18] MEDS ORDERED: hydrALAZINE HCL 20 MG/ML VIAL IVPUSH PRN (06:09)
[2020-03-18 06:42] LABS: BASO % 0.1 % (0-2.0); HEMATOCRIT 34.7 % (32.4-45.2); HEMOGLOBIN 11.6 GM/dL (10.7-15.3); LYMPH % 2.2 % (8-40); MCH 32.8 pg (25.7-33.7); MCHC 33.5 g/dl (32.0-36.0); MEAN CELL VOLUME 98.1 fl (80-96); MONO % 5.4 % (3.8-10.2); NEUT % 92.3 % (42.8-82.8); PLATELET COUNT 259 K/MM3 (134-434); RBC 3.54 M/mm3 (3.60-5.2); RDW 14.3 % (11.6-15.6); WHITE BLOOD COUNT 16.1 K/mm3 (4.0-10.0)
[2020-03-18 06:50] LABS: POTASSIUM 4.3 mmol/L (3.5-5.1)
[2020-03-18 06:52] LABS: ALBUMIN 1.8 g/dl (3.4-5.0); CALCIUM 7.6 mg/dL (8.5-10.1)
[2020-03-18 06:53] LABS: MAGNESIUM 2.2 mg/dL (1.8-2.4)
[2020-03-18 06:56] LABS: CREATININE 0.5 mg/dL (0.55-1.3); PHOSPHOROUS 2.8 mg/dL (2.5-4.9)
[2020-03-18 06:57] LABS: BILIRUBIN,TOTAL 0.2 mg/dL (0.2-1); TOT PROT 5.4 g/dl (6.4-8.2)
[2020-03-18] MEDS: AMINO ACIDS/PROTEIN HYDROLYS 30 ML LIQUID.PKT PO SCH (07:50)
[2020-03-18] MEDS: ENOXAPARIN NA (PORCINE) 80 MG/0.8 ML DISP.SYRIN SQ SCH ×2 (09:09→21:34)
[2020-03-18] MEDS: FAMOTIDINE 20 MG TABLET NGT SCH ×2 (09:09→21:34)
[2020-03-18] MEDS: DEXAMETHASONE SOD PHOSPHATE 4 MG/1 ML VIAL IVPUSH SCH (09:09)
[2020-03-18] MEDS: ASCORBIC ACID 500 MG TABLET (FP) NGT SCH ×2 (09:09→21:34)
[2020-03-18] MEDS: ZINC SULFATE 220 MG CAPSULE (FP) NGT SCH ×2 (09:17→21:34)
[2020-03-18 09:18] LABS: ANISOCYTOSIS 0; MACROCYTOSIS 0; PLATELET ESTIMATE NORMAL
[2020-03-18] MEDS: CHOLECALCIFEROL (VIT D3) 1,000 UNIT (25 MCG) TABLET PO SCH (09:19)
[2020-03-18] MEDS: VECURONIUM BROMIDE 100 MG/100 ML BAG IVPB SCH ×2 (13:00→17:50)
[2020-03-18] MEDS: SODIUM CHLORIDE 1,000 ML IV SCH (17:48)
[2020-03-18] MEDS: PHENYLEPHRINE NS PREMIX 50,000 MCG/500 ML BAG CVP SCH (17:49)
[2020-03-18] MEDS: CHLORHEXIDINE GLUCONATE 4% CLEANSER FOR DECOLONIZATION TP SCH (21:35)
[2020-03-19] MEDS: FENTANYL IVPB 500 MCG/100 ML BAG IVPB SCH ×2 (01:00→09:00)
[2020-03-19] MEDS ORDERED: PIPERACILLIN/TAZOBACTAM 3.375 GM VIAL IVPB ONE ×3 (02:40→18:20)
[2020-03-19] MEDS ORDERED: DEXTROSE 5%-WATER - 50 ML IVPB ONE ×3 (02:40→18:20)
[2020-03-19] MEDS: PIPERACILLIN/TAZOB 3.375 GM 3.375 GM in DEXTROSE 5%-WATER - 50 ML IVPB SCH ×3 (02:46→18:21)
[2020-03-19 06:42] LABS: ARTERIAL BLD GAS O2 SATURATION 84.6 mmHg (95-98); ARTERIAL BLOOD GAS BASE EXCESS 2.1 mmol/L (-2-2); ARTERIAL BLOOD GAS pH 7.299 (7.350-7.450)
[2020-03-19 06:47] LABS: VENT MODE A/C
[2020-03-19 06:48] LABS: VENT RATE 30
[2020-03-19 07:20] LABS: BASO % 0.1 % (0-2.0); EOS % 0.1 % (0-4.5); HEMATOCRIT 32.9 % (32.4-45.2); MCH 32.9 pg (25.7-33.7); MCHC 33.4 g/dl (32.0-36.0); MEAN CELL VOLUME 98.4 fl (80-96); MONO % 6.5 % (3.8-10.2); NEUT % 91.3 % (42.8-82.8); PLATELET COUNT 233 K/MM3 (134-434); RBC 3.34 M/mm3 (3.60-5.2); RDW 14.3 % (11.6-15.6); WHITE BLOOD COUNT 12.6 K/mm3 (4.0-10.0)
[2020-03-19 07:39] LABS: POTASSIUM 4.4 mmol/L (3.5-5.1)
[2020-03-19 08:00] LABS: CALCIUM 7.1 mg/dL (8.5-10.1)
[2020-03-19 08:01] LABS: ALBUMIN 1.6 g/dl (3.4-5.0); BLOOD UREA NITROGEN 21.2 mg/dL (7-18); MAGNESIUM 2.1 mg/dL (1.8-2.4)
[2020-03-19 08:03] LABS: BILIRUBIN,TOTAL 0.3 mg/dL (0.2-1)
[2020-03-19 08:04] LABS: CREATININE 0.4 mg/dL (0.55-1.3); PHOSPHOROUS 2.2 mg/dL (2.5-4.9)
[2020-03-19 08:05] LABS: TOT PROT 4.9 g/dl (6.4-8.2)
[2020-03-19 09:28] LABS: ANISOCYTOSIS 0; MACROCYTOSIS 1+; PLATELET ESTIMATE NORMAL
[2020-03-19] MEDS ORDERED: POTASSIUM PHOSPHATE 30 MM in SODIUM CHLORIDE 250 ML IVPB ONE (10:30)
[2020-03-19] MEDS: DEXAMETHASONE SOD PHOSPHATE 4 MG/1 ML VIAL IVPUSH SCH (11:02)
[2020-03-19] MEDS: PHENYLEPHRINE NS PREMIX 50,000 MCG/500 ML BAG CVP SCH (11:02)
[2020-03-19] MEDS: AMINO ACIDS/PROTEIN HYDROLYS 30 ML LIQUID.PKT PO SCH (11:02)
[2020-03-19] MEDS: FAMOTIDINE 20 MG TABLET NGT SCH ×2 (11:03→21:34)
[2020-03-19] MEDS: CHOLECALCIFEROL (VIT D3) 1,000 UNIT (25 MCG) TABLET PO SCH (11:03)
[2020-03-19] MEDS: ASCORBIC ACID 500 MG TABLET (FP) NGT SCH ×2 (11:03→21:34)
[2020-03-19] MEDS: ZINC SULFATE 220 MG CAPSULE (FP) NGT SCH ×2 (11:03→21:34)
[2020-03-19] MEDS: ENOXAPARIN NA (PORCINE) 80 MG/0.8 ML DISP.SYRIN SQ SCH ×2 (11:03→21:34)
[2020-03-19] MEDS: SODIUM CHLORIDE 1,000 ML IV SCH (11:05)
[2020-03-19] MEDS ORDERED: PT OWN MED DRAWER 7, Y5N ONE (12:23)
[2020-03-19] MEDS ORDERED: MIDAZOLAM 100 MG/100 ML MG IVPB ONE ×2 (14:24→21:40)
[2020-03-19] MEDS: VECURONIUM BROMIDE 100 MG/100 ML BAG IVPB SCH (19:15)
[2020-03-19] MEDS: MIDAZOLAM 100 MG in SODIUM CHLORIDE 100 ML IVPB SCH (19:15)
[2020-03-19] MEDS: CHLORHEXIDINE GLUCONATE 4% CLEANSER FOR DECOLONIZATION TP SCH (21:34)
[2020-03-20] MEDS ORDERED: PIPERACILLIN/TAZOBACTAM 3.375 GM VIAL IVPB ONE ×3 (00:32→16:21)
[2020-03-20] MEDS ORDERED: DEXTROSE 5%-WATER - 50 ML IVPB ONE ×3 (00:33→16:21)
[2020-03-20] MEDS: PIPERACILLIN/TAZOB 3.375 GM 3.375 GM in DEXTROSE 5%-WATER - 50 ML IVPB SCH ×3 (01:04→17:23)
[2020-03-20 05:41] LABS: ARTERIAL BLD GAS O2 SATURATION 88.3 mmHg (95-98); ARTERIAL BLOOD GAS BASE EXCESS 5.5 mmol/L (-2-2); ARTERIAL BLOOD GAS PO2 61.5 mmHg (80-100); ARTERIAL BLOOD GAS pH 7.302 (7.350-7.450)
[2020-03-20 05:51] LABS: ALLENS TEST POSITIVE
[2020-03-20 05:52] LABS: VENT MODE A/C
[2020-03-20 05:53] LABS: VENT RATE 30
[2020-03-20 07:35] LABS: BASO % 0.1 % (0-2.0); EOS % 0.1 % (0-4.5); HEMATOCRIT 33.6 % (32.4-45.2); HEMOGLOBIN 11.3 GM/dL (10.7-15.3); LYMPH % 2.4 % (8-40); MCH 33.2 pg (25.7-33.7); MCHC 33.5 g/dl (32.0-36.0); MEAN CELL VOLUME 98.9 fl (80-96); MEAN PLT VOLUME 7.3 fl (7.5-11.1); MONO % 6.4 % (3.8-10.2); PLATELET COUNT 239 K/MM3 (134-434); RBC 3.39 M/mm3 (3.60-5.2); WHITE BLOOD COUNT 12.2 K/mm3 (4.0-10.0)
[2020-03-20 07:37] LABS: POTASSIUM 4.7 mmol/L (3.5-5.1)
[2020-03-20 07:46] LABS: ALBUMIN 1.7 g/dl (3.4-5.0); BILIRUBIN,TOTAL 0.2 mg/dL (0.2-1); CALCIUM 7.3 mg/dL (8.5-10.1)
[2020-03-20 07:48] LABS: TOT PROT 5.2 g/dl (6.4-8.2)
[2020-03-20 07:49] LABS: CREATININE 0.4 mg/dL (0.55-1.3); PHOSPHOROUS 2.6 mg/dL (2.5-4.9)
[2020-03-20 09:52] LABS: ANISOCYTOSIS 0; MACROCYTOSIS 1+; PLATELET ESTIMATE NORMAL
[2020-03-20] MEDS ORDERED: MIDAZOLAM 100 MG/100 ML MG IVPB ONE ×2 (10:29→22:18)
[2020-03-20] MEDS: CHOLECALCIFEROL (VIT D3) 1,000 UNIT (25 MCG) TABLET PO SCH (10:40)
[2020-03-20] MEDS: DEXAMETHASONE SOD PHOSPHATE 4 MG/1 ML VIAL IVPUSH SCH (10:40)
[2020-03-20] MEDS: ZINC SULFATE 220 MG CAPSULE (FP) NGT SCH ×2 (10:40→22:08)
[2020-03-20] MEDS: ENOXAPARIN NA (PORCINE) 80 MG/0.8 ML DISP.SYRIN SQ SCH ×2 (10:41→22:08)
[2020-03-20] MEDS: SODIUM CHLORIDE 1,000 ML IV SCH (10:41)
[2020-03-20] MEDS: AMINO ACIDS/PROTEIN HYDROLYS 30 ML LIQUID.PKT PO SCH (10:42)
[2020-03-20] MEDS: PHENYLEPHRINE NS PREMIX 50,000 MCG/500 ML BAG CVP SCH (10:43)
[2020-03-20] MEDS: ASCORBIC ACID 500 MG TABLET (FP) NGT SCH ×2 (10:44→22:08)
[2020-03-20] MEDS: FAMOTIDINE 20 MG TABLET NGT SCH ×2 (11:00→22:08)
[2020-03-20] MEDS: FENTANYL IVPB 500 MCG/100 ML BAG IVPB SCH (12:00)
[2020-03-20] MEDS: MIDAZOLAM 100 MG in SODIUM CHLORIDE 100 ML IVPB SCH (16:44)
[2020-03-20] MEDS: DOCUSATE NA 100 MG/10 ML UNIT-DOSE CUPS PO PRN (17:23)
[2020-03-20] MEDS: VECURONIUM BROMIDE 100 MG/100 ML BAG IVPB SCH (19:15)
[2020-03-20] MEDS: POLYETHYLENE GLYCOL 3350 119 GM BTL PO SCH (22:09)
[2020-03-20] MEDS: CHLORHEXIDINE GLUCONATE 4% CLEANSER FOR DECOLONIZATION TP SCH (22:09)
[2020-03-20] MEDS: SENNOSIDES 8.8 MG/5 ML BULK BOTTLE PO SCH (23:25)
[2020-03-21] MEDS ORDERED: FENTANYL NS IVPB 500 MCG/100 ML BAG IVPB SCH (00:45)
[2020-03-21] MEDS ORDERED: MIDAZOLAM 100 MG in SODIUM CHLORIDE 100 ML IVPB SCH (00:45)
[2020-03-21] MEDS ORDERED: PIPERACILLIN/TAZOBACTAM 3.375 GM VIAL IVPB ONE ×3 (01:22→17:26)
[2020-03-21] MEDS ORDERED: DEXTROSE 5%-WATER - 50 ML IVPB ONE ×3 (01:23→17:26)
[2020-03-21] MEDS: PIPERACILLIN/TAZOB 3.375 GM 3.375 GM in DEXTROSE 5%-WATER - 50 ML IVPB SCH ×3 (01:50→17:30)
[2020-03-21 07:26] LABS: BASO % 0.1 % (0-2.0); EOS % 0.1 % (0-4.5); HEMATOCRIT 30.6 % (32.4-45.2); HEMOGLOBIN 10.3 GM/dL (10.7-15.3); MCH 33.2 pg (25.7-33.7); MCHC 33.7 g/dl (32.0-36.0); MEAN CELL VOLUME 98.8 fl (80-96); MEAN PLT VOLUME 7.4 fl (7.5-11.1); MONO % 4.9 % (3.8-10.2); NEUT % 91.9 % (42.8-82.8); PLATELET COUNT 223 K/MM3 (134-434); WHITE BLOOD COUNT 12.3 K/mm3 (4.0-10.0)
[2020-03-21 07:47] LABS: POTASSIUM 4.5 mmol/L (3.5-5.1)
[2020-03-21] MEDS: FENTANYL IVPB 500 MCG/100 ML BAG IVPB SCH ×4 (07:51→18:48)
[2020-03-21 07:52] LABS: CALCIUM 7.3 mg/dL (8.5-10.1)
[2020-03-21 07:53] LABS: ALBUMIN 1.7 g/dl (3.4-5.0)
[2020-03-21] MEDS: MIDAZOLAM 100 MG in SODIUM CHLORIDE 100 ML IVPB SCH ×3 (07:53→18:48)
[2020-03-21 07:54] LABS: MAGNESIUM 2.2 mg/dL (1.8-2.4)
[2020-03-21 07:56] LABS: CREATININE 0.4 mg/dL (0.55-1.3); PHOSPHOROUS 2.9 mg/dL (2.5-4.9)
[2020-03-21 07:57] LABS: BILIRUBIN,TOTAL 0.4 mg/dL (0.2-1); TOT PROT 4.7 g/dl (6.4-8.2)
[2020-03-21 08:34] LABS: ANISOCYTOSIS 1+; MACROCYTOSIS 0; PLATELET ESTIMATE NORMAL
[2020-03-21] MEDS: PHENYLEPHRINE NS PREMIX 50,000 MCG/500 ML BAG CVP SCH (09:00)
[2020-03-21] MEDS: AMINO ACIDS/PROTEIN HYDROLYS 30 ML LIQUID.PKT PO SCH ×2 (09:25→17:20)
[2020-03-21] MEDS: DEXAMETHASONE SOD PHOSPHATE 4 MG/1 ML VIAL IVPUSH SCH (09:26)
[2020-03-21] MEDS: ENOXAPARIN NA (PORCINE) 80 MG/0.8 ML DISP.SYRIN SQ SCH ×2 (09:26→22:41)
[2020-03-21] MEDS: CHOLECALCIFEROL (VIT D3) 1,000 UNIT (25 MCG) TABLET PO SCH (09:27)
[2020-03-21] MEDS: FAMOTIDINE 20 MG TABLET NGT SCH ×2 (09:27→22:41)
[2020-03-21] MEDS: ASCORBIC ACID 500 MG TABLET (FP) NGT SCH ×2 (09:27→22:41)
[2020-03-21] MEDS: ZINC SULFATE 220 MG CAPSULE (FP) NGT SCH ×2 (09:28→22:41)
[2020-03-21] MEDS: PROPOFOL 1,000,000 MCG/100 ML VIAL IVPB SCH ×2 (10:00→13:56)
[2020-03-21] MEDS: POLYETHYLENE GLYCOL 3350 119 GM BTL PO SCH ×2 (13:31→22:41)
[2020-03-21] MEDS: SODIUM CHLORIDE 1,000 ML IV SCH (13:55)
[2020-03-21] MEDS ORDERED: FENTANYL NS IVPB 500 MCG/100 ML BAG IVPB ONE (18:46)
[2020-03-21] MEDS ORDERED: MIDAZOLAM 100 MG/100 ML MG IVPB ONE (18:46)
[2020-03-21] MEDS: CHLORHEXIDINE GLUCONATE 4% CLEANSER FOR DECOLONIZATION TP SCH (22:41)
[2020-03-21] MEDS: SENNOSIDES 8.8 MG/5 ML BULK BOTTLE PO SCH (23:43)
[2020-03-22] MEDS ORDERED: PIPERACILLIN/TAZOBACTAM 3.375 GM VIAL IVPB ONE ×3 (01:02→15:07)
[2020-03-22] MEDS ORDERED: DEXTROSE 5%-WATER - 50 ML IVPB ONE ×3 (01:02→15:08)
[2020-03-22] MEDS: PIPERACILLIN/TAZOB 3.375 GM 3.375 GM in DEXTROSE 5%-WATER - 50 ML IVPB SCH ×3 (01:55→17:02)
[2020-03-22] MEDS ORDERED: MIDAZOLAM 100 MG/100 ML MG IVPB ONE (02:49)
[2020-03-22 07:36] LABS: BASO % 0.1 % (0-2.0); EOS % 0.1 % (0-4.5); HEMATOCRIT 27.6 % (32.4-45.2); HEMOGLOBIN 9.4 GM/dL (10.7-15.3); LYMPH % 3.5 % (8-40); MCH 33.5 pg (25.7-33.7); MCHC 34.1 g/dl (32.0-36.0); MEAN CELL VOLUME 98.2 fl (80-96); MEAN PLT VOLUME 7.1 fl (7.5-11.1); MONO % 4.6 % (3.8-10.2); NEUT % 91.7 % (42.8-82.8); PLATELET COUNT 225 K/MM3 (134-434); RBC 2.81 M/mm3 (3.60-5.2)
[2020-03-22 07:55] LABS: POTASSIUM 4.3 mmol/L (3.5-5.1)
[2020-03-22 07:59] LABS: ALBUMIN 1.5 g/dl (3.4-5.0); CALCIUM 7.3 mg/dL (8.5-10.1)
[2020-03-22 08:00] LABS: BLOOD UREA NITROGEN 23.1 mg/dL (7-18); MAGNESIUM 2.2 mg/dL (1.8-2.4)
[2020-03-22 08:03] LABS: CREATININE 0.4 mg/dL (0.55-1.3)
[2020-03-22 08:04] LABS: BILIRUBIN,TOTAL 0.2 mg/dL (0.2-1); TOT PROT 4.4 g/dl (6.4-8.2)
[2020-03-22] MEDS ORDERED: PT OWN MED DRAWER 7, Y5N ONE ×2 (08:47→22:09)
[2020-03-22] MEDS: AMINO ACIDS/PROTEIN HYDROLYS 30 ML LIQUID.PKT PO SCH ×3 (08:53→16:39)
[2020-03-22] MEDS: PHENYLEPHRINE NS PREMIX 50,000 MCG/500 ML BAG CVP SCH (09:00)
[2020-03-22 09:05] LABS: ANISOCYTOSIS 1+; MACROCYTOSIS 1+; PLATELET ESTIMATE NORMAL
[2020-03-22] MEDS: VECURONIUM BROMIDE 100 MG/100 ML BAG IVPB SCH ×3 (09:54→12:28)
[2020-03-22] MEDS: ENOXAPARIN NA (PORCINE) 80 MG/0.8 ML DISP.SYRIN SQ SCH ×2 (10:09→22:06)
[2020-03-22] MEDS: FAMOTIDINE 20 MG TABLET NGT SCH ×2 (10:09→22:05)
[2020-03-22] MEDS: CHOLECALCIFEROL (VIT D3) 1,000 UNIT (25 MCG) TABLET PO SCH (10:09)
[2020-03-22] MEDS: ZINC SULFATE 220 MG CAPSULE (FP) NGT SCH ×2 (10:09→22:05)
[2020-03-22] MEDS: DEXAMETHASONE SOD PHOSPHATE 4 MG/1 ML VIAL IVPUSH SCH (10:09)
[2020-03-22] MEDS: ASCORBIC ACID 500 MG TABLET (FP) NGT SCH ×2 (10:09→22:05)
[2020-03-22] MEDS ORDERED: SODIUM CHLORIDE 500 ML IV STA (10:41)
[2020-03-22] MEDS: FENTANYL IVPB 500 MCG/100 ML BAG IVPB SCH (11:15)
[2020-03-22] MEDS: SODIUM CHLORIDE 1,000 ML IV SCH (12:18)
[2020-03-22] MEDS: PROPOFOL 1,000,000 MCG/100 ML VIAL IVPB SCH (14:15)
[2020-03-22] MEDS: MIDAZOLAM 100 MG in SODIUM CHLORIDE 100 ML IVPB SCH (14:28)
[2020-03-22] MEDS: POLYETHYLENE GLYCOL 3350 119 GM BTL PO SCH ×2 (16:22→22:05)
[2020-03-22] MEDS: CHLORHEXIDINE GLUCONATE 4% CLEANSER FOR DECOLONIZATION TP SCH (22:06)
[2020-03-22] MEDS: SENNOSIDES 8.8 MG/5 ML BULK BOTTLE PO SCH (22:09)
[2020-03-23] MEDS ORDERED: PIPERACILLIN/TAZOBACTAM 3.375 GM VIAL IVPB ONE ×3 (00:55→16:24)
[2020-03-23] MEDS ORDERED: DEXTROSE 5%-WATER - 50 ML IVPB ONE ×3 (00:56→16:24)
[2020-03-23] MEDS: PIPERACILLIN/TAZOB 3.375 GM 3.375 GM in DEXTROSE 5%-WATER - 50 ML IVPB SCH ×3 (02:20→18:31)
[2020-03-23] MEDS ORDERED: LABETALOL HCL 5 MG/1 ML (100MG/20 ML VIAL) IVPUSH ONE (06:13)
[2020-03-23 07:38] LABS: BASO % 0.1 % (0-2.0); EOS % 0.3 % (0-4.5); HEMATOCRIT 33.3 % (32.4-45.2); HEMOGLOBIN 11.2 GM/dL (10.7-15.3); LYMPH % 9.2 % (8-40); MCH 32.9 pg (25.7-33.7); MCHC 33.5 g/dl (32.0-36.0); MEAN CELL VOLUME 98.2 fl (80-96); MEAN PLT VOLUME 7.1 fl (7.5-11.1); MONO % 4.2 % (3.8-10.2); NEUT % 86.2 % (42.8-82.8); PLATELET COUNT 291 K/MM3 (134-434); RDW 13.8 % (11.6-15.6); WHITE BLOOD COUNT 14.8 K/mm3 (4.0-10.0)
[2020-03-23 07:45] LABS: POTASSIUM 4.1 mmol/L (3.5-5.1)
[2020-03-23 07:50] LABS: ALBUMIN 1.9 g/dl (3.4-5.0); BLOOD UREA NITROGEN 21.2 mg/dL (7-18); CALCIUM 7.8 mg/dL (8.5-10.1)
[2020-03-23 07:51] LABS: MAGNESIUM 2.1 mg/dL (1.8-2.4)
[2020-03-23 07:53] LABS: CREATININE 0.3 mg/dL (0.55-1.3); PHOSPHOROUS 3.2 mg/dL (2.5-4.9)
[2020-03-23 07:54] LABS: TOT PROT 5.4 g/dl (6.4-8.2)
[2020-03-23 07:55] LABS: BILIRUBIN,TOTAL 0.3 mg/dL (0.2-1)
[2020-03-23] MEDS: PHENYLEPHRINE NS PREMIX 50,000 MCG/500 ML BAG CVP SCH (09:00)
[2020-03-23 09:03] LABS: ANISOCYTOSIS 0; MACROCYTOSIS 1+; PLATELET ESTIMATE NORMAL
[2020-03-23] MEDS: POLYETHYLENE GLYCOL 3350 119 GM BTL PO SCH ×2 (09:41→21:21)
[2020-03-23] MEDS: AMINO ACIDS/PROTEIN HYDROLYS 30 ML LIQUID.PKT PO SCH ×3 (09:41→18:29)
[2020-03-23] MEDS: ZINC SULFATE 220 MG CAPSULE (FP) NGT SCH ×2 (09:42→21:22)
[2020-03-23] MEDS: ASCORBIC ACID 500 MG TABLET (FP) NGT SCH ×2 (09:42→21:22)
[2020-03-23] MEDS: CHOLECALCIFEROL (VIT D3) 1,000 UNIT (25 MCG) TABLET PO SCH (09:43)
[2020-03-23] MEDS: FAMOTIDINE 20 MG TABLET NGT SCH ×2 (09:43→21:22)
[2020-03-23] MEDS: DEXAMETHASONE SOD PHOSPHATE 4 MG/1 ML VIAL IVPUSH SCH (09:43)
[2020-03-23] MEDS: ENOXAPARIN NA (PORCINE) 80 MG/0.8 ML DISP.SYRIN SQ SCH ×2 (09:44→21:21)
[2020-03-23] MEDS: PROPOFOL 1,000,000 MCG/100 ML VIAL IVPB SCH ×3 (09:45→21:23)
[2020-03-23] MEDS: SODIUM CHLORIDE 1,000 ML IV SCH (09:46)
[2020-03-23] MEDS: FENTANYL IVPB 500 MCG/100 ML BAG IVPB SCH ×3 (09:47→21:23)
[2020-03-23] MEDS: MIDAZOLAM 100 MG/100 ML MG IVPB SCH (09:48)
[2020-03-23] MEDS ORDERED: MIDAZOLAM HCL 2 MG/2 ML SINGLE DOSE VIAL IVPUSH ONE (11:00)
[2020-03-23] MEDS: VECURONIUM BROMIDE 100 MG/100 ML BAG IVPB SCH ×2 (11:00→21:23)
[2020-03-23] MEDS ORDERED: ACETAMINOPHEN 650 MG/20.3 ML ORAL SOLUTION (CUPS) PO ONE (11:15)
[2020-03-23] MEDS ORDERED: SODIUM CHLORIDE 500 ML IV STA (12:47)
[2020-03-23] MEDS: CHLORHEXIDINE GLUCONATE 4% CLEANSER FOR DECOLONIZATION TP SCH (21:21)
[2020-03-23] MEDS: SENNOSIDES 8.8 MG/5 ML BULK BOTTLE PO SCH (21:22)
[2020-03-24] MEDS: PHENYLEPHRINE NS PREMIX 50,000 MCG/500 ML BAG CVP SCH (00:50)
[2020-03-24] MEDS: PROPOFOL 1,000,000 MCG/100 ML VIAL IVPB SCH ×3 (01:24→09:00)
[2020-03-24] MEDS: PIPERACILLIN/TAZOB 3.375 GM 3.375 GM in DEXTROSE 5%-WATER - 50 ML IVPB SCH ×3 (02:55→17:08)
[2020-03-24] MEDS ORDERED: DEXTROSE 5%-WATER - 50 ML IVPB ONE ×4 (03:04→23:08)
[2020-03-24] MEDS ORDERED: PIPERACILLIN/TAZOBACTAM 3.375 GM VIAL IVPB ONE ×4 (03:04→23:08)
[2020-03-24] MEDS ORDERED: SODIUM CHLORIDE 1,000 ML IV STA (03:38)
[2020-03-24] MEDS: SODIUM CHLORIDE 1,000 ML IV STA ×2 (03:50→04:31)
[2020-03-24] MEDS: FENTANYL IVPB 500 MCG/100 ML BAG IVPB SCH ×5 (04:32→17:10)
[2020-03-24] MEDS ORDERED: LABETALOL HCL 5 MG/1 ML (100MG/20 ML VIAL) IVPUSH ONE (04:58)
[2020-03-24] MEDS ORDERED: LABETALOL HCL 5 MG/1 ML (100MG/20 ML VIAL) ONE (05:03)
[2020-03-24 06:59] LABS: BASO % 0.1 % (0-2.0); EOS % 0.5 % (0-4.5); HEMATOCRIT 27.2 % (32.4-45.2); LYMPH % 4.2 % (8-40); MCH 32.7 pg (25.7-33.7); MCHC 33.1 g/dl (32.0-36.0); MEAN PLT VOLUME 7.5 fl (7.5-11.1); MONO % 4.8 % (3.8-10.2); NEUT % 90.4 % (42.8-82.8); PLATELET COUNT 240 K/MM3 (134-434); RBC 2.75 M/mm3 (3.60-5.2); RDW 14.1 % (11.6-15.6); WHITE BLOOD COUNT 12.7 K/mm3 (4.0-10.0)
[2020-03-24 07:29] LABS: POTASSIUM 3.7 mmol/L (3.5-5.1)
[2020-03-24 07:30] LABS: CALCIUM 7.2 mg/dL (8.5-10.1)
[2020-03-24 07:32] LABS: ALBUMIN 1.7 g/dl (3.4-5.0); BLOOD UREA NITROGEN 23.3 mg/dL (7-18); MAGNESIUM 1.8 mg/dL (1.8-2.4)
[2020-03-24 07:35] LABS: CREATININE 0.3 mg/dL (0.55-1.3); PHOSPHOROUS 3.5 mg/dL (2.5-4.9)
[2020-03-24] MEDS ORDERED: FENTANYL NS IVPB 500 MCG/100 ML BAG IVPB ONE (07:35)
[2020-03-24 07:36] LABS: BILIRUBIN,TOTAL 0.8 mg/dL (0.2-1); TOT PROT 4.4 g/dl (6.4-8.2)
[2020-03-24] MEDS ORDERED: PT OWN MED DRAWER 7, Y5N ONE (08:05)
[2020-03-24] MEDS: AMINO ACIDS/PROTEIN HYDROLYS 30 ML LIQUID.PKT PO SCH ×3 (08:32→17:08)
[2020-03-24] MEDS: SODIUM CHLORIDE 1,000 ML IV SCH (09:16)
[2020-03-24] MEDS: ENOXAPARIN NA (PORCINE) 80 MG/0.8 ML DISP.SYRIN SQ SCH ×2 (09:17→22:11)
[2020-03-24] MEDS: DEXAMETHASONE SOD PHOSPHATE 4 MG/1 ML VIAL IVPUSH SCH (09:17)
[2020-03-24] MEDS: ZINC SULFATE 220 MG CAPSULE (FP) NGT SCH ×2 (09:17→22:12)
[2020-03-24] MEDS: ASCORBIC ACID 500 MG TABLET (FP) NGT SCH ×2 (09:18→22:12)
[2020-03-24] MEDS: FAMOTIDINE 20 MG TABLET NGT SCH ×2 (09:18→22:12)
[2020-03-24] MEDS: CHOLECALCIFEROL (VIT D3) 1,000 UNIT (25 MCG) TABLET PO SCH (09:18)
[2020-03-24] MEDS: POLYETHYLENE GLYCOL 3350 119 GM BTL PO SCH ×2 (10:04→22:11)
[2020-03-24 10:05] LABS: ANISOCYTOSIS 1+; MACROCYTOSIS 0; PLATELET ESTIMATE NORMAL
[2020-03-24] MEDS: VECURONIUM BROMIDE 100 MG/100 ML BAG IVPB SCH (11:30)
[2020-03-24] MEDS: MIDAZOLAM 100 MG/100 ML MG IVPB SCH (18:32)
[2020-03-24] MEDS: CHLORHEXIDINE GLUCONATE 4% CLEANSER FOR DECOLONIZATION TP SCH (22:11)
[2020-03-24] MEDS: SENNOSIDES 8.8 MG/5 ML BULK BOTTLE PO SCH (22:12)
[2020-03-25] MEDS: PIPERACILLIN/TAZOB 3.375 GM 3.375 GM in DEXTROSE 5%-WATER - 50 ML IVPB SCH ×3 (01:05→18:28)
[2020-03-25 05:49] LABS: ARTERIAL BLD GAS O2 SATURATION 87.7 mmHg (95-98); ARTERIAL BLOOD GAS PO2 59.6 mmHg (80-100); ARTERIAL BLOOD GAS pH 7.319 (7.350-7.450)
[2020-03-25 05:50] LABS: ALLENS TEST POSITIVE
[2020-03-25 05:51] LABS: VENT MODE A/C; VENT RATE 30
[2020-03-25 07:22] LABS: POTASSIUM 3.7 mmol/L (3.5-5.1)
[2020-03-25 07:26] LABS: ALBUMIN 1.9 g/dl (3.4-5.0); BLOOD UREA NITROGEN 23.5 mg/dL (7-18); CALCIUM 7.3 mg/dL (8.5-10.1); MAGNESIUM 1.9 mg/dL (1.8-2.4)
[2020-03-25 07:30] LABS: CREATININE 0.3 mg/dL (0.55-1.3); PHOSPHOROUS 3.3 mg/dL (2.5-4.9)
[2020-03-25 07:31] LABS: BILIRUBIN,TOTAL 0.2 mg/dL (0.2-1)
[2020-03-25 08:47] LABS: BASO % 0.1 % (0-2.0); HEMATOCRIT 28.6 % (32.4-45.2); HEMOGLOBIN 9.5 GM/dL (10.7-15.3); LYMPH % 6.1 % (8-40); MCHC 33.1 g/dl (32.0-36.0); MEAN CELL VOLUME 99.7 fl (80-96); MEAN PLT VOLUME 7.7 fl (7.5-11.1); NEUT % 88.8 % (42.8-82.8); PLATELET COUNT 267 K/MM3 (134-434); RBC 2.87 M/mm3 (3.60-5.2); RDW 14.2 % (11.6-15.6); WHITE BLOOD COUNT 13.7 K/mm3 (4.0-10.0)
[2020-03-25] MEDS: AMINO ACIDS/PROTEIN HYDROLYS 30 ML LIQUID.PKT PO SCH ×3 (08:49→18:28)
[2020-03-25] MEDS ORDERED: DEXTROSE 5%-WATER - 50 ML IVPB ONE ×2 (10:25→17:02)
[2020-03-25] MEDS ORDERED: PIPERACILLIN/TAZOBACTAM 3.375 GM VIAL IVPB ONE ×2 (10:25→17:02)
[2020-03-25] MEDS: PROPOFOL 1,000,000 MCG/100 ML VIAL IVPB SCH (11:50)
[2020-03-25] MEDS: DEXAMETHASONE SOD PHOSPHATE 4 MG/1 ML VIAL IVPUSH SCH (11:50)
[2020-03-25] MEDS: FENTANYL IVPB 500 MCG/100 ML BAG IVPB SCH (11:50)
[2020-03-25] MEDS: ENOXAPARIN NA (PORCINE) 80 MG/0.8 ML DISP.SYRIN SQ SCH ×2 (11:50→23:04)
[2020-03-25] MEDS: SODIUM CHLORIDE 1,000 ML IV SCH (11:50)
[2020-03-25] MEDS: ASCORBIC ACID 500 MG TABLET (FP) NGT SCH ×2 (11:51→23:05)
[2020-03-25] MEDS: FAMOTIDINE 20 MG TABLET NGT SCH ×2 (11:51→23:04)
[2020-03-25] MEDS: POLYETHYLENE GLYCOL 3350 119 GM BTL PO SCH ×2 (11:51→23:04)
[2020-03-25] MEDS: ZINC SULFATE 220 MG CAPSULE (FP) NGT SCH ×2 (11:51→23:05)
[2020-03-25] MEDS: CHOLECALCIFEROL (VIT D3) 1,000 UNIT (25 MCG) TABLET PO SCH (11:51)
[2020-03-25 12:35] LABS: ANISOCYTOSIS 1+; MACROCYTOSIS 1+; PLATELET ESTIMATE NORMAL
[2020-03-25] MEDS ORDERED: POTASSIUM CHLORIDE 20 MEQ PREMIX IVPB 100 ML IVPB SCH (13:00)
[2020-03-25] MEDS ORDERED: MAGNESIUM CL 64 MG TABLET.SA PO ONE (13:00)
[2020-03-25] MEDS ORDERED: PT OWN MED DRAWER 7, Y5N ONE ×2 (13:47→15:36)
[2020-03-25] MEDS ORDERED: VECURONIUM BROMIDE 100 MG/100 ML BAG ONE (17:26)
[2020-03-25] MEDS: VECURONIUM BROMIDE 100 MG/100 ML BAG IVPB SCH (18:28)
[2020-03-25] MEDS ORDERED: SODIUM CHLORIDE 250 ML IV STA (19:34)
[2020-03-25] MEDS: CHLORHEXIDINE GLUCONATE 4% CLEANSER FOR DECOLONIZATION TP SCH (23:04)
[2020-03-25] MEDS: SENNOSIDES 8.8 MG/5 ML BULK BOTTLE PO SCH (23:04)
[2020-03-26] MEDS ORDERED: PIPERACILLIN/TAZOBACTAM 3.375 GM VIAL IVPB ONE ×5 (01:01→23:22)
[2020-03-26] MEDS ORDERED: DEXTROSE 5%-WATER - 50 ML IVPB ONE ×4 (01:01→22:37)
[2020-03-26] MEDS: PIPERACILLIN/TAZOB 3.375 GM 3.375 GM in DEXTROSE 5%-WATER - 50 ML IVPB SCH ×3 (02:05→17:41)
[2020-03-26 07:49] LABS: BASO % 0.1 % (0-2.0); EOS % 0.6 % (0-4.5); HEMATOCRIT 23.4 % (32.4-45.2); HEMOGLOBIN 7.9 GM/dL (10.7-15.3); LYMPH % 5.6 % (8-40); MCH 33.5 pg (25.7-33.7); MCHC 33.8 g/dl (32.0-36.0); MEAN CELL VOLUME 98.9 fl (80-96); MEAN PLT VOLUME 7.3 fl (7.5-11.1); MONO % 3.1 % (3.8-10.2); NEUT % 90.6 % (42.8-82.8); PLATELET COUNT 239 K/MM3 (134-434); RBC 2.36 M/mm3 (3.60-5.2); RDW 14.5 % (11.6-15.6); WHITE BLOOD COUNT 13.1 K/mm3 (4.0-10.0)
[2020-03-26] MEDS: FENTANYL IVPB 500 MCG/100 ML BAG IVPB SCH ×2 (08:00→10:00)
[2020-03-26 08:58] LABS: POTASSIUM 4.2 mmol/L (3.5-5.1)
[2020-03-26] MEDS: PROPOFOL 1,000,000 MCG/100 ML VIAL IVPB SCH ×2 (09:00→15:30)
[2020-03-26] MEDS: MIDAZOLAM 100 MG/100 ML MG IVPB SCH (09:00)
[2020-03-26 09:04] LABS: ALBUMIN 1.7 g/dl (3.4-5.0); BLOOD UREA NITROGEN 20.9 mg/dL (7-18); CALCIUM 7.4 mg/dL (8.5-10.1); MAGNESIUM 1.9 mg/dL (1.8-2.4)
[2020-03-26 09:06] LABS: PHOSPHOROUS 3.3 mg/dL (2.5-4.9)
[2020-03-26 09:07] LABS: CREATININE 0.3 mg/dL (0.55-1.3)
[2020-03-26 09:09] LABS: BILIRUBIN,TOTAL 0.2 mg/dL (0.2-1); TOT PROT 4.4 g/dl (6.4-8.2)
[2020-03-26] MEDS: SODIUM CHLORIDE 1,000 ML IV SCH (09:30)
[2020-03-26] MEDS: AMINO ACIDS/PROTEIN HYDROLYS 30 ML LIQUID.PKT PO SCH ×3 (11:11→17:41)
[2020-03-26] MEDS: ENOXAPARIN NA (PORCINE) 80 MG/0.8 ML DISP.SYRIN SQ SCH (11:12)
[2020-03-26] MEDS: DEXAMETHASONE SOD PHOSPHATE 4 MG/1 ML VIAL IVPUSH SCH (11:13)
[2020-03-26] MEDS: ASCORBIC ACID 500 MG TABLET (FP) NGT SCH ×2 (11:17→22:50)
[2020-03-26] MEDS: CHOLECALCIFEROL (VIT D3) 1,000 UNIT (25 MCG) TABLET PO SCH (11:17)
[2020-03-26] MEDS: ZINC SULFATE 220 MG CAPSULE (FP) NGT SCH ×2 (11:18→22:50)
[2020-03-26] MEDS: FAMOTIDINE 20 MG TABLET NGT SCH ×2 (11:18→22:50)
[2020-03-26] MEDS: POLYETHYLENE GLYCOL 3350 119 GM BTL PO SCH ×2 (11:19→22:49)
[2020-03-26] MEDS: VECURONIUM BROMIDE 100 MG/100 ML BAG IVPB SCH (11:30)
[2020-03-26 11:59] LABS: ANISOCYTOSIS 1+; MACROCYTOSIS 0; PLATELET ESTIMATE NORMAL
[2020-03-26] MEDS ORDERED: MIDAZOLAM 100 MG/100 ML MG IVPB SCH (16:45)
[2020-03-26] MEDS: ACETAMINOPHEN 1000 MG/100 ML VIAL (NON FORMULARY) IVPB PRN (17:40)
[2020-03-26 18:04] LABS: EPI CELLS >36 /uL (0-25.1); HYALINE CASTS 5 /uL (0-3.1); URINE APPEARANCE CLEAR; URINE BACTERIA 278 /uL (0-1359); URINE BILIRUBIN NEGATIVE (NEGATIVE); URINE COLOR YELLOW; URINE GLUCOSE (UA) TRACE (NEGATIVE); URINE KETONE NEGATIVE (NEGATIVE); URINE LEUK ESTERASE TRACE (NEGATIVE); URINE NITRITE NEGATIVE (NEGATIVE); URINE PROTEIN NEGATIVE (NEGATIVE); URINE RBC 63 /uL (0-23.9); URINE WBC 87 /uL (0-25.8)
[2020-03-26] MEDS: CHLORHEXIDINE GLUCONATE 4% CLEANSER FOR DECOLONIZATION TP SCH (22:50)
[2020-03-26] MEDS: SENNOSIDES 8.8 MG/5 ML BULK BOTTLE PO SCH (22:50)
[2020-03-27] MEDS: PIPERACILLIN/TAZOB 3.375 GM 3.375 GM in DEXTROSE 5%-WATER - 50 ML IVPB SCH ×3 (01:36→17:36)
[2020-03-27 05:58] LABS: ARTERIAL BLD GAS O2 SATURATION 84.4 mmHg (95-98); ARTERIAL BLOOD GAS BASE EXCESS 8.4 mmol/L (-2-2); ARTERIAL BLOOD GAS PO2 52.8 mmHg (80-100); ARTERIAL BLOOD GAS pH 7.349 (7.350-7.450)
[2020-03-27 06:07] LABS: ALLENS TEST POSITIVE; VENT MODE A/C
[2020-03-27 06:08] LABS: VENT RATE 30
[2020-03-27 07:27] LABS: BASO % 0.1 % (0-2.0); HEMATOCRIT 26.6 % (32.4-45.2); HEMOGLOBIN 8.9 GM/dL (10.7-15.3); LYMPH % 3.9 % (8-40); MCH 33.2 pg (25.7-33.7); MCHC 33.4 g/dl (32.0-36.0); MEAN CELL VOLUME 99.3 fl (80-96); MEAN PLT VOLUME 7.2 fl (7.5-11.1); MONO % 2.6 % (3.8-10.2); NEUT % 93.4 % (42.8-82.8); PLATELET COUNT 296 K/MM3 (134-434); RBC 2.68 M/mm3 (3.60-5.2); RDW 14.8 % (11.6-15.6); WHITE BLOOD COUNT 14.8 K/mm3 (4.0-10.0)
[2020-03-27 08:07] LABS: CALCIUM 7.6 mg/dL (8.5-10.1)
[2020-03-27 08:08] LABS: BLOOD UREA NITROGEN 21.7 mg/dL (7-18)
[2020-03-27 08:11] LABS: CREATININE 0.3 mg/dL (0.55-1.3); PHOSPHOROUS 3.2 mg/dL (2.5-4.9)
[2020-03-27 08:13] LABS: BILIRUBIN,TOTAL 0.3 mg/dL (0.2-1); TOT PROT 5.4 g/dl (6.4-8.2)
[2020-03-27 09:30] LABS: ANISOCYTOSIS 1+; MACROCYTOSIS 1+; PLATELET ESTIMATE NORMAL
[2020-03-27] MEDS: AMINO ACIDS/PROTEIN HYDROLYS 30 ML LIQUID.PKT PO SCH ×3 (09:30→17:35)
[2020-03-27] MEDS ORDERED: DEXTROSE 5%-WATER - 50 ML IVPB ONE ×2 (09:53→17:29)
[2020-03-27] MEDS ORDERED: PIPERACILLIN/TAZOBACTAM 3.375 GM VIAL IVPB ONE ×2 (09:53→17:29)
[2020-03-27] MEDS: PROPOFOL 1,000,000 MCG/100 ML VIAL IVPB SCH ×2 (10:07→16:58)
[2020-03-27] MEDS: FENTANYL IVPB 500 MCG/100 ML BAG IVPB SCH (10:07)
[2020-03-27] MEDS: DEXAMETHASONE SOD PHOSPHATE 4 MG/1 ML VIAL IVPUSH SCH (10:07)
[2020-03-27] MEDS: POLYETHYLENE GLYCOL 3350 119 GM BTL PO SCH ×2 (10:08→21:18)
[2020-03-27] MEDS: ASCORBIC ACID 500 MG TABLET (FP) NGT SCH ×2 (10:08→21:19)
[2020-03-27] MEDS: FAMOTIDINE 20 MG TABLET NGT SCH ×2 (10:08→21:19)
[2020-03-27] MEDS: CHOLECALCIFEROL (VIT D3) 1,000 UNIT (25 MCG) TABLET PO SCH (10:08)
[2020-03-27] MEDS: ZINC SULFATE 220 MG CAPSULE (FP) NGT SCH ×2 (10:25→21:22)
[2020-03-27] MEDS: VECURONIUM BROMIDE 100 MG/100 ML BAG IVPB SCH (11:30)
[2020-03-27] MEDS: SODIUM CHLORIDE 1,000 ML IV SCH (16:50)
[2020-03-27] MEDS: ACETAMINOPHEN 1000 MG/100 ML VIAL (NON FORMULARY) IVPB PRN (18:16)
[2020-03-27] MEDS: MIDAZOLAM 100 MG in SODIUM CHLORIDE 100 ML IVPB SCH (18:25)
[2020-03-27] MEDS ORDERED: PT OWN MED DRAWER 7, Y5N ONE (21:16)
[2020-03-27] MEDS: SENNOSIDES 8.8 MG/5 ML BULK BOTTLE PO SCH (21:19)
[2020-03-27] MEDS: CHLORHEXIDINE GLUCONATE 4% CLEANSER FOR DECOLONIZATION TP SCH (21:20)
[2020-03-27] MEDS ORDERED: FENTANYL NS IVPB 500 MCG/100 ML BAG IVPB ONE (21:30)
[2020-03-27] MEDS ORDERED: MIDAZOLAM 100 MG/100 ML MG IVPB ONE (21:31)
[2020-03-28] MEDS ORDERED: PIPERACILLIN/TAZOBACTAM 3.375 GM VIAL IVPB ONE ×3 (02:36→17:01)
[2020-03-28] MEDS ORDERED: DEXTROSE 5%-WATER - 50 ML IVPB ONE ×3 (02:36→17:01)
[2020-03-28] MEDS: PIPERACILLIN/TAZOB 3.375 GM 3.375 GM in DEXTROSE 5%-WATER - 50 ML IVPB SCH ×3 (02:55→17:08)
[2020-03-28] MEDS ORDERED: MIDAZOLAM 100 MG/100 ML MG IVPB ONE ×3 (02:59→21:10)
[2020-03-28 06:54] LABS: BASO % 0.2 % (0-2.0); EOS % 0.1 % (0-4.5); HEMOGLOBIN 7.2 GM/dL (10.7-15.3); LYMPH % 3.1 % (8-40); MCH 32.9 pg (25.7-33.7); MCHC 32.9 g/dl (32.0-36.0); MEAN CELL VOLUME 100.1 fl (80-96); MEAN PLT VOLUME 7.2 fl (7.5-11.1); MONO % 5.2 % (3.8-10.2); NEUT % 91.4 % (42.8-82.8); PLATELET COUNT 269 K/MM3 (134-434); RDW 14.9 % (11.6-15.6); WHITE BLOOD COUNT 12.4 K/mm3 (4.0-10.0)
[2020-03-28 07:06] LABS: INR 0.99 (0.83-1.09); PROTHROMBIN TIME (PATIENT) 12.2 SEC (9.7-13.0)
[2020-03-28 07:08] LABS: ACTIVATED PTT 26.9 SECONDS (25.2-36.5)
[2020-03-28 07:14] LABS: POTASSIUM 4.1 mmol/L (3.5-5.1)
[2020-03-28 07:18] LABS: CALCIUM 7.3 mg/dL (8.5-10.1)
[2020-03-28 07:19] LABS: ALBUMIN 1.7 g/dl (3.4-5.0); MAGNESIUM 1.9 mg/dL (1.8-2.4)
[2020-03-28 07:22] LABS: CREATININE 0.3 mg/dL (0.55-1.3); PHOSPHOROUS 2.4 mg/dL (2.5-4.9)
[2020-03-28 07:23] LABS: BILIRUBIN,TOTAL 0.4 mg/dL (0.2-1)
[2020-03-28 07:24] LABS: TOT PROT 4.5 g/dl (6.4-8.2)
[2020-03-28] MEDS: FENTANYL IVPB 500 MCG/100 ML BAG IVPB SCH ×3 (08:30→21:15)
[2020-03-28] MEDS: SODIUM CHLORIDE 1,000 ML IV SCH (09:00)
[2020-03-28] MEDS: DEXAMETHASONE SOD PHOSPHATE 4 MG/1 ML VIAL IVPUSH SCH (09:10)
[2020-03-28] MEDS: CHOLECALCIFEROL (VIT D3) 1,000 UNIT (25 MCG) TABLET PO SCH (09:10)
[2020-03-28] MEDS: AMINO ACIDS/PROTEIN HYDROLYS 30 ML LIQUID.PKT PO SCH ×3 (09:10→17:08)
[2020-03-28] MEDS: ASCORBIC ACID 500 MG TABLET (FP) NGT SCH ×2 (09:10→21:17)
[2020-03-28] MEDS: ZINC SULFATE 220 MG CAPSULE (FP) NGT SCH ×2 (09:11→21:17)
[2020-03-28] MEDS: FAMOTIDINE 20 MG TABLET NGT SCH ×2 (09:11→21:17)
[2020-03-28] MEDS: MIDAZOLAM 100 MG in SODIUM CHLORIDE 100 ML IVPB SCH ×2 (09:54→21:15)
[2020-03-28] MEDS: PROPOFOL 1,000,000 MCG/100 ML VIAL IVPB SCH (10:00)
[2020-03-28] MEDS: VECURONIUM BROMIDE 100 MG/100 ML BAG IVPB SCH (11:30)
[2020-03-28] MEDS: POLYETHYLENE GLYCOL 3350 119 GM BTL PO SCH ×2 (12:00→21:16)
[2020-03-28 12:07] LABS: ANISOCYTOSIS 1+; MACROCYTOSIS 1+
[2020-03-28] MEDS ORDERED: PT OWN MED DRAWER 7, Y5N ONE (21:11)
[2020-03-28] MEDS: CHLORHEXIDINE GLUCONATE 4% CLEANSER FOR DECOLONIZATION TP SCH (21:16)
[2020-03-28] MEDS: SENNOSIDES 8.8 MG/5 ML BULK BOTTLE PO SCH (21:17)
[2020-03-29] MEDS ORDERED: PIPERACILLIN/TAZOBACTAM 3.375 GM VIAL IVPB ONE ×3 (01:16→17:12)
[2020-03-29] MEDS ORDERED: DEXTROSE 5%-WATER - 50 ML IVPB ONE ×3 (01:17→17:12)
[2020-03-29] MEDS: PIPERACILLIN/TAZOB 3.375 GM 3.375 GM in DEXTROSE 5%-WATER - 50 ML IVPB SCH ×3 (01:18→17:16)
[2020-03-29 06:19] LABS: ARTERIAL BLD GAS O2 SATURATION 79.8 mmHg (95-98); ARTERIAL BLOOD GAS BASE EXCESS 8.3 mmol/L (-2-2); ARTERIAL BLOOD GAS PO2 46.4 mmHg (80-100)
[2020-03-29 06:37] LABS: ALLENS TEST POSITIVE
[2020-03-29 06:38] LABS: VENT MODE A/C; VENT RATE 30
[2020-03-29 06:57] LABS: BASO % 0.1 % (0-2.0); EOS % 0.2 % (0-4.5); HEMATOCRIT 24.1 % (32.4-45.2); HEMOGLOBIN 8.1 GM/dL (10.7-15.3); LYMPH % 6.2 % (8-40); MCH 33.8 pg (25.7-33.7); MCHC 33.5 g/dl (32.0-36.0); MEAN CELL VOLUME 100.9 fl (80-96); MEAN PLT VOLUME 7.1 fl (7.5-11.1); MONO % 5.5 % (3.8-10.2); PLATELET COUNT 314 K/MM3 (134-434); RBC 2.39 M/mm3 (3.60-5.2); RDW 15.4 % (11.6-15.6); WHITE BLOOD COUNT 12.1 K/mm3 (4.0-10.0)
[2020-03-29 07:14] LABS: POTASSIUM 4.1 mmol/L (3.5-5.1)
[2020-03-29 07:18] LABS: CALCIUM 7.5 mg/dL (8.5-10.1)
[2020-03-29 07:19] LABS: BLOOD UREA NITROGEN 20.1 mg/dL (7-18); MAGNESIUM 1.8 mg/dL (1.8-2.4)
[2020-03-29 07:22] LABS: CREATININE 0.3 mg/dL (0.55-1.3); PHOSPHOROUS 2.6 mg/dL (2.5-4.9)
[2020-03-29 07:23] LABS: BILIRUBIN,TOTAL 0.2 mg/dL (0.2-1); TOT PROT 5.1 g/dl (6.4-8.2)
[2020-03-29] MEDS: FENTANYL IVPB 500 MCG/100 ML BAG IVPB SCH (08:30)
[2020-03-29 09:20] LABS: ANISOCYTOSIS 1+; MACROCYTOSIS 1+; PLATELET ESTIMATE NORMAL
[2020-03-29] MEDS: CHOLECALCIFEROL (VIT D3) 1,000 UNIT (25 MCG) TABLET PO SCH (09:56)
[2020-03-29] MEDS: POLYETHYLENE GLYCOL 3350 119 GM BTL PO SCH ×2 (09:56→22:19)
[2020-03-29] MEDS: PROPOFOL 1,000,000 MCG/100 ML VIAL IVPB SCH ×2 (09:56→22:15)
[2020-03-29] MEDS: AMINO ACIDS/PROTEIN HYDROLYS 30 ML LIQUID.PKT PO SCH ×3 (09:56→17:16)
[2020-03-29] MEDS: SODIUM CHLORIDE 1,000 ML IV SCH (09:57)
[2020-03-29] MEDS: ASCORBIC ACID 500 MG TABLET (FP) NGT SCH ×2 (09:57→22:20)
[2020-03-29] MEDS: ZINC SULFATE 220 MG CAPSULE (FP) NGT SCH ×2 (09:58→22:19)
[2020-03-29] MEDS: DEXAMETHASONE SOD PHOSPHATE 4 MG/1 ML VIAL IVPUSH SCH (09:58)
[2020-03-29] MEDS: FAMOTIDINE 20 MG TABLET NGT SCH ×2 (09:59→22:19)
[2020-03-29] MEDS: VECURONIUM BROMIDE 100 MG/100 ML BAG IVPB SCH (12:13)
[2020-03-29] MEDS ORDERED: FENTANYL NS IVPB 500 MCG/100 ML BAG IVPB ONE (17:11)
[2020-03-29] MEDS ORDERED: MIDAZOLAM 100 MG/100 ML MG IVPB ONE (17:11)
[2020-03-29] MEDS ORDERED: PT OWN MED DRAWER 7, Y5N ONE (22:18)
[2020-03-29] MEDS: SENNOSIDES 8.8 MG/5 ML BULK BOTTLE PO SCH (22:19)
[2020-03-29] MEDS: CHLORHEXIDINE GLUCONATE 4% CLEANSER FOR DECOLONIZATION TP SCH (22:19)
[2020-03-30] MEDS: PIPERACILLIN/TAZOB 3.375 GM 3.375 GM in DEXTROSE 5%-WATER - 50 ML IVPB SCH ×3 (03:00→17:01)
[2020-03-30] MEDS ORDERED: PIPERACILLIN/TAZOBACTAM 3.375 GM VIAL IVPB ONE ×3 (03:01→16:54)
[2020-03-30] MEDS ORDERED: DEXTROSE 5%-WATER - 50 ML IVPB ONE ×3 (03:01→16:54)
[2020-03-30] MEDS ORDERED: FENTANYL NS IVPB 500 MCG/100 ML BAG IVPB ONE ×2 (04:04→07:14)
[2020-03-30] MEDS ORDERED: MIDAZOLAM 100 MG/100 ML MG IVPB ONE ×2 (04:04→07:14)
[2020-03-30] MEDS: FENTANYL IVPB 500 MCG/100 ML BAG IVPB SCH ×3 (04:10→19:10)
[2020-03-30] MEDS: MIDAZOLAM 100 MG in SODIUM CHLORIDE 100 ML IVPB SCH ×3 (05:07→16:31)
[2020-03-30] MEDS: SODIUM CHLORIDE 1,000 ML IV SCH ×3 (05:26→16:04)
[2020-03-30 06:54] LABS: BASO % 0.1 % (0-2.0); EOS % 0.4 % (0-4.5); HEMATOCRIT 25.2 % (32.4-45.2); HEMOGLOBIN 8.6 GM/dL (10.7-15.3); LYMPH % 5.2 % (8-40); MCH 34.4 pg (25.7-33.7); MCHC 34.2 g/dl (32.0-36.0); MEAN CELL VOLUME 100.7 fl (80-96); MEAN PLT VOLUME 6.9 fl (7.5-11.1); MONO % 3.7 % (3.8-10.2); NEUT % 90.6 % (42.8-82.8); PLATELET COUNT 327 K/MM3 (134-434); RDW 16.4 % (11.6-15.6); WHITE BLOOD COUNT 10.4 K/mm3 (4.0-10.0)
[2020-03-30] MEDS: AMINO ACIDS/PROTEIN HYDROLYS 30 ML LIQUID.PKT PO SCH ×3 (07:21→16:53)
[2020-03-30 07:26] LABS: BLOOD UREA NITROGEN 19.8 mg/dL (7-18); CALCIUM 7.7 mg/dL (8.5-10.1)
[2020-03-30 07:27] LABS: MAGNESIUM 1.8 mg/dL (1.8-2.4)
[2020-03-30 07:30] LABS: CREATININE 0.3 mg/dL (0.55-1.3); PHOSPHOROUS 2.8 mg/dL (2.5-4.9)
[2020-03-30 07:31] LABS: BILIRUBIN,TOTAL 0.3 mg/dL (0.2-1); TOT PROT 5.2 g/dl (6.4-8.2)
[2020-03-30 09:09] LABS: ANISOCYTOSIS 2+; MACROCYTOSIS 1+; PLATELET ESTIMATE NORMAL
[2020-03-30] MEDS: DEXAMETHASONE SOD PHOSPHATE 4 MG/1 ML VIAL IVPUSH SCH (09:38)
[2020-03-30] MEDS: ZINC SULFATE 220 MG CAPSULE (FP) NGT SCH ×2 (09:39→22:02)
[2020-03-30] MEDS: CHOLECALCIFEROL (VIT D3) 1,000 UNIT (25 MCG) TABLET PO SCH (09:39)
[2020-03-30] MEDS: ASCORBIC ACID 500 MG TABLET (FP) NGT SCH ×2 (09:39→22:02)
[2020-03-30] MEDS: FAMOTIDINE 20 MG TABLET NGT SCH ×2 (09:40→22:02)
[2020-03-30] MEDS: PROPOFOL 1,000,000 MCG/100 ML VIAL IVPB SCH (09:40)
[2020-03-30] MEDS: POLYETHYLENE GLYCOL 3350 119 GM BTL PO SCH ×2 (09:47→22:02)
[2020-03-30] MEDS: VECURONIUM BROMIDE 100 MG/100 ML BAG IVPB SCH (12:07)
[2020-03-30] MEDS ORDERED: PT OWN MED DRAWER 7, Y5N ONE (21:58)
[2020-03-30] MEDS: SENNOSIDES 8.8 MG/5 ML BULK BOTTLE PO SCH (22:02)
[2020-03-30] MEDS: CHLORHEXIDINE GLUCONATE 4% CLEANSER FOR DECOLONIZATION TP SCH (22:03)
[2020-03-31] MEDS: MIDAZOLAM 100 MG/100 ML MG IVPB SCH ×5 (00:35→22:01)
[2020-03-31] MEDS: FENTANYL IVPB 500 MCG/100 ML BAG IVPB SCH ×4 (00:35→23:30)
[2020-03-31] MEDS: PROPOFOL 1,000,000 MCG/100 ML VIAL IVPB SCH ×4 (02:00→22:02)
[2020-03-31] MEDS: PIPERACILLIN/TAZOB 3.375 GM 3.375 GM in DEXTROSE 5%-WATER - 50 ML IVPB SCH ×3 (03:05→17:21)
[2020-03-31] MEDS ORDERED: PIPERACILLIN/TAZOBACTAM 3.375 GM VIAL IVPB ONE ×3 (05:54→17:10)
[2020-03-31] MEDS ORDERED: DEXTROSE 5%-WATER - 50 ML IVPB ONE ×3 (05:54→17:11)
[2020-03-31 06:15] LABS: ALLENS TEST POSITIVE; ARTERIAL BLD GAS O2 SATURATION 92.1 mmHg (95-98); ARTERIAL BLOOD GAS BASE EXCESS 11.9 mmol/L (-2-2); ARTERIAL BLOOD GAS PO2 67.3 mmHg (80-100); ARTERIAL BLOOD GAS pH 7.371 (7.350-7.450); VENT MODE A/C
[2020-03-31 06:16] LABS: VENT RATE 30
[2020-03-31] MEDS: MIDAZOLAM 100 MG in SODIUM CHLORIDE 100 ML IVPB SCH (07:12)
[2020-03-31 07:39] LABS: EOS % 0.5 % (0-4.5); HEMATOCRIT 25.6 % (32.4-45.2); HEMOGLOBIN 8.4 GM/dL (10.7-15.3); MCH 33.9 pg (25.7-33.7); MCHC 32.8 g/dl (32.0-36.0); MEAN CELL VOLUME 103.2 fl (80-96); MEAN PLT VOLUME 6.9 fl (7.5-11.1); MONO % 2.7 % (3.8-10.2); NEUT % 89.8 % (42.8-82.8); PLATELET COUNT 305 K/MM3 (134-434); RBC 2.48 M/mm3 (3.60-5.2); RDW 16.7 % (11.6-15.6); WHITE BLOOD COUNT 9.9 K/mm3 (4.0-10.0)
[2020-03-31 07:53] LABS: ACTIVATED PTT 26.8 SECONDS (25.2-36.5); INR 0.94 (0.83-1.09); PROTHROMBIN TIME (PATIENT) 11.6 SEC (9.7-13.0)
[2020-03-31 07:56] LABS: POTASSIUM 4.1 mmol/L (3.5-5.1)
[2020-03-31 08:00] LABS: CALCIUM 8.1 mg/dL (8.5-10.1)
[2020-03-31 08:01] LABS: BLOOD UREA NITROGEN 17.4 mg/dL (7-18)
[2020-03-31 08:02] LABS: MAGNESIUM 1.8 mg/dL (1.8-2.4)
[2020-03-31 08:04] LABS: CREATININE 0.2 mg/dL (0.55-1.3)
[2020-03-31 08:05] LABS: BILIRUBIN,TOTAL 0.6 mg/dL (0.2-1); PHOSPHOROUS 3.5 mg/dL (2.5-4.9)
[2020-03-31 08:06] LABS: TOT PROT 5.1 g/dl (6.4-8.2)
[2020-03-31] MEDS: AMINO ACIDS/PROTEIN HYDROLYS 30 ML LIQUID.PKT PO SCH ×2 (09:46→11:57)
[2020-03-31] MEDS: DEXAMETHASONE SOD PHOSPHATE 4 MG/1 ML VIAL IVPUSH SCH (09:46)
[2020-03-31] MEDS: ENOXAPARIN NA (PORCINE) 40 MG/0.4 ML DISP.SYRIN SQ SCH (09:46)
[2020-03-31] MEDS: ZINC SULFATE 220 MG CAPSULE (FP) NGT SCH ×2 (09:46→21:35)
[2020-03-31] MEDS: ASCORBIC ACID 500 MG TABLET (FP) NGT SCH ×2 (09:47→21:36)
[2020-03-31] MEDS: CHOLECALCIFEROL (VIT D3) 1,000 UNIT (25 MCG) TABLET PO SCH (09:47)
[2020-03-31] MEDS: FAMOTIDINE 20 MG TABLET NGT SCH ×2 (09:51→21:35)
[2020-03-31 10:01] LABS: ANISOCYTOSIS 1+; MACROCYTOSIS 1+; PLATELET ESTIMATE NORMAL
[2020-03-31] MEDS: POLYETHYLENE GLYCOL 3350 119 GM BTL PO SCH ×2 (11:54→21:35)
[2020-03-31] MEDS: SODIUM CHLORIDE 1,000 ML IV SCH (17:30)
[2020-03-31] MEDS ORDERED: PT OWN MED DRAWER 7, Y5N ONE (20:51)
[2020-03-31] MEDS: CHLORHEXIDINE GLUCONATE 4% CLEANSER FOR DECOLONIZATION TP SCH (21:35)
[2020-03-31] MEDS: SENNOSIDES 8.8 MG/5 ML BULK BOTTLE PO SCH (21:36)
[2020-04-01] MEDS: FENTANYL IVPB 500 MCG/100 ML BAG IVPB SCH ×4 (03:01→14:21)
[2020-04-01] MEDS: PIPERACILLIN/TAZOB 3.375 GM 3.375 GM in DEXTROSE 5%-WATER - 50 ML IVPB SCH ×3 (03:02→17:44)
[2020-04-01] MEDS ORDERED: DEXTROSE 5%-WATER - 50 ML IVPB ONE ×3 (03:08→17:42)
[2020-04-01] MEDS ORDERED: PIPERACILLIN/TAZOBACTAM 3.375 GM VIAL IVPB ONE ×3 (03:08→17:42)
[2020-04-01] MEDS: PROPOFOL 1,000,000 MCG/100 ML VIAL IVPB SCH ×3 (06:41→14:21)
[2020-04-01] MEDS: SODIUM CHLORIDE 1,000 ML IV SCH ×3 (06:42→20:00)
[2020-04-01] MEDS: MIDAZOLAM 100 MG/100 ML MG IVPB SCH (06:43)
[2020-04-01 07:43] LABS: EOS % 0.5 % (0-4.5); HEMATOCRIT 23.1 % (32.4-45.2); HEMOGLOBIN 7.8 GM/dL (10.7-15.3); MCH 34.2 pg (25.7-33.7); MCHC 33.6 g/dl (32.0-36.0); MEAN CELL VOLUME 101.5 fl (80-96); MEAN PLT VOLUME 6.9 fl (7.5-11.1); MONO % 2.8 % (3.8-10.2); NEUT % 91.7 % (42.8-82.8); PLATELET COUNT 309 K/MM3 (134-434); RBC 2.28 M/mm3 (3.60-5.2); RDW 17.3 % (11.6-15.6); WHITE BLOOD COUNT 9.1 K/mm3 (4.0-10.0)
[2020-04-01 08:03] LABS: POTASSIUM 4.1 mmol/L (3.5-5.1)
[2020-04-01 08:06] LABS: BLOOD UREA NITROGEN 22.5 mg/dL (7-18)
[2020-04-01 08:09] LABS: CREATININE 0.2 mg/dL (0.55-1.3)
[2020-04-01 08:42] LABS: ANISOCYTOSIS 1+; MACROCYTOSIS 1+; PLATELET ESTIMATE NORMAL
[2020-04-01] MEDS: DEXAMETHASONE SOD PHOSPHATE 4 MG/1 ML VIAL IVPUSH SCH (09:22)
[2020-04-01] MEDS: POLYETHYLENE GLYCOL 3350 119 GM BTL PO SCH ×2 (09:26→22:03)
[2020-04-01] MEDS: CHOLECALCIFEROL (VIT D3) 1,000 UNIT (25 MCG) TABLET PO SCH (09:27)
[2020-04-01] MEDS: AMINO ACIDS/PROTEIN HYDROLYS 30 ML LIQUID.PKT PO SCH (09:27)
[2020-04-01] MEDS: ZINC SULFATE 220 MG CAPSULE (FP) NGT SCH ×2 (09:28→22:07)
[2020-04-01] MEDS: FAMOTIDINE 20 MG TABLET NGT SCH ×2 (09:28→22:07)
[2020-04-01] MEDS: ENOXAPARIN NA (PORCINE) 40 MG/0.4 ML DISP.SYRIN SQ SCH (09:28)
[2020-04-01] MEDS: ASCORBIC ACID 500 MG TABLET (FP) NGT SCH ×2 (09:28→22:07)
[2020-04-01] MEDS ORDERED: FENTANYL NS IVPB 500 MCG/100 ML BAG IVPB ONE (14:18)
[2020-04-01] MEDS: NOREPINEPHRINE NS PREMIX 8,000 MCG/500 ML BAG IVPB SCH (22:02)
[2020-04-01] MEDS: CHLORHEXIDINE GLUCONATE 4% CLEANSER FOR DECOLONIZATION TP SCH (22:03)
[2020-04-01] MEDS: SENNOSIDES 8.8 MG/5 ML BULK BOTTLE PO SCH (22:07)
[2020-04-02] MEDS: PROPOFOL 1,000,000 MCG/100 ML VIAL IVPB SCH ×4 (01:00→21:00)
[2020-04-02] MEDS ORDERED: DEXTROSE 5%-WATER - 50 ML IVPB ONE ×2 (01:50→07:15)
[2020-04-02] MEDS ORDERED: PIPERACILLIN/TAZOBACTAM 3.375 GM VIAL IVPB ONE ×2 (01:50→07:15)
[2020-04-02] MEDS: MIDAZOLAM 100 MG/100 ML MG IVPB SCH ×3 (02:40→21:00)
[2020-04-02] MEDS: PIPERACILLIN/TAZOB 3.375 GM 3.375 GM in DEXTROSE 5%-WATER - 50 ML IVPB SCH ×2 (02:40→08:59)
[2020-04-02] MEDS: FENTANYL IVPB 500 MCG/100 ML BAG IVPB SCH ×3 (02:41→16:00)
[2020-04-02 07:23] LABS: BASO % 0.2 % (0-2.0); EOS % 0.2 % (0-4.5); HEMATOCRIT 25.9 % (32.4-45.2); HEMOGLOBIN 8.5 GM/dL (10.7-15.3); LYMPH % 6.2 % (8-40); MCHC 32.9 g/dl (32.0-36.0); MEAN CELL VOLUME 103.2 fl (80-96); MEAN PLT VOLUME 7.1 fl (7.5-11.1); MONO % 3.2 % (3.8-10.2); NEUT % 90.2 % (42.8-82.8); PLATELET COUNT 357 K/MM3 (134-434); RBC 2.51 M/mm3 (3.60-5.2); RDW 17.8 % (11.6-15.6); WHITE BLOOD COUNT 8.5 K/mm3 (4.0-10.0)
[2020-04-02 07:29] LABS: POTASSIUM 4.3 mmol/L (3.5-5.1)
[2020-04-02 07:32] LABS: BLOOD UREA NITROGEN 17.6 mg/dL (7-18); CALCIUM 8.3 mg/dL (8.5-10.1)
[2020-04-02 07:36] LABS: CREATININE 0.2 mg/dL (0.55-1.3)
[2020-04-02] MEDS: AMINO ACIDS/PROTEIN HYDROLYS 30 ML LIQUID.PKT PO SCH (09:02)
[2020-04-02] MEDS: CHOLECALCIFEROL (VIT D3) 1,000 UNIT (25 MCG) TABLET PO SCH (09:02)
[2020-04-02] MEDS: ZINC SULFATE 220 MG CAPSULE (FP) NGT SCH ×2 (09:03→22:00)
[2020-04-02] MEDS: DEXAMETHASONE SOD PHOSPHATE 4 MG/1 ML VIAL IVPUSH SCH (09:03)
[2020-04-02] MEDS: FAMOTIDINE 20 MG TABLET NGT SCH ×2 (09:04→22:00)
[2020-04-02] MEDS: ENOXAPARIN NA (PORCINE) 40 MG/0.4 ML DISP.SYRIN SQ SCH (09:04)
[2020-04-02] MEDS: ASCORBIC ACID 500 MG TABLET (FP) NGT SCH ×2 (09:04→22:00)
[2020-04-02 10:06] LABS: ANISOCYTOSIS 1+; MACROCYTOSIS 1+; PLATELET ESTIMATE NORMAL
[2020-04-02] MEDS: SODIUM CHLORIDE 1,000 ML IV SCH (12:00)
[2020-04-02] MEDS: POLYETHYLENE GLYCOL 3350 119 GM BTL PO SCH ×2 (14:06→23:47)
[2020-04-02] MEDS: NOREPINEPHRINE NS PREMIX 8,000 MCG/500 ML BAG IVPB SCH (20:00)
[2020-04-02] MEDS: SENNOSIDES 8.8 MG/5 ML BULK BOTTLE PO SCH (22:00)
[2020-04-02] MEDS: CHLORHEXIDINE GLUCONATE 4% CLEANSER FOR DECOLONIZATION TP SCH (23:47)
[2020-04-03] MEDS: FENTANYL IVPB 500 MCG/100 ML BAG IVPB SCH ×2 (08:45→16:34)
[2020-04-03] MEDS: AMINO ACIDS/PROTEIN HYDROLYS 30 ML LIQUID.PKT PO SCH (09:00)
[2020-04-03] MEDS: PROPOFOL 1,000,000 MCG/100 ML VIAL IVPB SCH ×2 (09:00→16:32)
[2020-04-03] MEDS: SODIUM CHLORIDE 1,000 ML IV SCH ×2 (09:15→16:33)
[2020-04-03] MEDS: POLYETHYLENE GLYCOL 3350 119 GM BTL PO SCH ×2 (09:24→21:18)
[2020-04-03] MEDS ORDERED: PT OWN MED DRAWER 7, Y5N ONE ×2 (09:28→21:01)
[2020-04-03] MEDS: DEXAMETHASONE SOD PHOSPHATE 4 MG/1 ML VIAL IVPUSH SCH (09:40)
[2020-04-03] MEDS: FAMOTIDINE 20 MG TABLET NGT SCH ×2 (09:41→21:19)
[2020-04-03] MEDS: ASCORBIC ACID 500 MG TABLET (FP) NGT SCH ×2 (09:42→21:19)
[2020-04-03] MEDS: CHOLECALCIFEROL (VIT D3) 1,000 UNIT (25 MCG) TABLET PO SCH (09:42)
[2020-04-03] MEDS: ZINC SULFATE 220 MG CAPSULE (FP) NGT SCH ×2 (09:42→21:18)
[2020-04-03] MEDS: ENOXAPARIN NA (PORCINE) 40 MG/0.4 ML DISP.SYRIN SQ SCH (09:42)
[2020-04-03] MEDS: MIDAZOLAM 100 MG/100 ML MG IVPB SCH (16:31)
[2020-04-03] MEDS: NOREPINEPHRINE NS PREMIX 8,000 MCG/500 ML BAG IVPB SCH ×2 (17:54→21:18)
[2020-04-03] MEDS ORDERED: FENTANYL NS IVPB 500 MCG/100 ML BAG IVPB ONE (20:33)
[2020-04-03] MEDS: CHLORHEXIDINE GLUCONATE 4% CLEANSER FOR DECOLONIZATION TP SCH (21:18)
[2020-04-03] MEDS: SENNOSIDES 8.8 MG/5 ML BULK BOTTLE PO SCH (21:19)
[2020-04-04] MEDS: FENTANYL NS IVPB 500 MCG/100 ML BAG IVPB SCH ×3 (01:01→09:20)
[2020-04-04] MEDS: MIDAZOLAM 100 MG/100 ML MG IVPB SCH (02:16)
[2020-04-04] MEDS: PROPOFOL 1,000,000 MCG/100 ML VIAL IVPB SCH ×2 (02:17→09:00)
[2020-04-04] MEDS: SODIUM CHLORIDE 1,000 ML IV SCH (07:00)
[2020-04-04] MEDS: AMINO ACIDS/PROTEIN HYDROLYS 30 ML LIQUID.PKT PO SCH (09:00)
[2020-04-04] MEDS: DEXAMETHASONE SOD PHOSPHATE 4 MG/1 ML VIAL IVPUSH SCH ×2 (09:18→11:32)
[2020-04-04] MEDS: ENOXAPARIN NA (PORCINE) 40 MG/0.4 ML DISP.SYRIN SQ SCH (09:18)
[2020-04-04] MEDS: CHOLECALCIFEROL (VIT D3) 1,000 UNIT (25 MCG) TABLET PO SCH (09:19)
[2020-04-04] MEDS: ZINC SULFATE 220 MG CAPSULE (FP) NGT SCH ×2 (09:19→22:35)
[2020-04-04] MEDS: ASCORBIC ACID 500 MG TABLET (FP) NGT SCH ×2 (09:19→22:37)
[2020-04-04] MEDS: FAMOTIDINE 20 MG TABLET NGT SCH ×2 (09:19→22:36)
[2020-04-04] MEDS: POLYETHYLENE GLYCOL 3350 119 GM BTL PO SCH ×2 (11:33→22:35)
[2020-04-04] MEDS ORDERED: PT OWN MED DRAWER 7, Y5N ONE (21:53)
[2020-04-04] MEDS: CHLORHEXIDINE GLUCONATE 4% CLEANSER FOR DECOLONIZATION TP SCH (22:35)
[2020-04-04] MEDS: SENNOSIDES 8.8 MG/5 ML BULK BOTTLE PO SCH (22:36)
[2020-04-05] MEDS: MIDAZOLAM 100 MG/100 ML MG IVPB SCH ×2 (02:05→13:41)
[2020-04-05 07:15] LABS: BASO % 0.1 % (0-2.0); EOS % 0.1 % (0-4.5); HEMATOCRIT 24.1 % (32.4-45.2); LYMPH % 9.2 % (8-40); MCH 33.8 pg (25.7-33.7); MCHC 33.1 g/dl (32.0-36.0); MEAN CELL VOLUME 102.1 fl (80-96); MEAN PLT VOLUME 6.6 fl (7.5-11.1); MONO % 4.5 % (3.8-10.2); NEUT % 86.1 % (42.8-82.8); PLATELET COUNT 382 K/MM3 (134-434); RBC 2.36 M/mm3 (3.60-5.2); RDW 17.9 % (11.6-15.6); WHITE BLOOD COUNT 5.7 K/mm3 (4.0-10.0)
[2020-04-05 07:34] LABS: POTASSIUM 4.3 mmol/L (3.5-5.1)
[2020-04-05 07:42] LABS: CALCIUM 8.3 mg/dL (8.5-10.1)
[2020-04-05 07:43] LABS: ALBUMIN 1.8 g/dl (3.4-5.0); BLOOD UREA NITROGEN 33.1 mg/dL (7-18); MAGNESIUM 1.9 mg/dL (1.8-2.4)
[2020-04-05 07:46] LABS: CREATININE 0.3 mg/dL (0.55-1.3); PHOSPHOROUS 3.3 mg/dL (2.5-4.9)
[2020-04-05 07:47] LABS: BILIRUBIN,TOTAL 0.4 mg/dL (0.2-1); TOT PROT 5.7 g/dl (6.4-8.2)
[2020-04-05] MEDS: PROPOFOL 1,000,000 MCG/100 ML VIAL IVPB SCH (09:00)
[2020-04-05 09:27] LABS: ANISOCYTOSIS 1+; MACROCYTOSIS 1+; PLATELET ESTIMATE NORMAL
[2020-04-05] MEDS: CHOLECALCIFEROL (VIT D3) 1,000 UNIT (25 MCG) TABLET PO SCH (09:59)
[2020-04-05] MEDS: ZINC SULFATE 220 MG CAPSULE (FP) NGT SCH ×2 (09:59→22:23)
[2020-04-05] MEDS: AMINO ACIDS/PROTEIN HYDROLYS 30 ML LIQUID.PKT PO SCH (09:59)
[2020-04-05] MEDS: FAMOTIDINE 20 MG TABLET NGT SCH ×2 (10:00→22:23)
[2020-04-05] MEDS: SODIUM CHLORIDE 1,000 ML IV SCH ×2 (10:00→19:00)
[2020-04-05] MEDS: ASCORBIC ACID 500 MG TABLET (FP) NGT SCH ×2 (10:00→22:23)
[2020-04-05] MEDS: DEXAMETHASONE SOD PHOSPHATE 4 MG/1 ML VIAL IVPUSH SCH (10:00)
[2020-04-05] MEDS: ENOXAPARIN NA (PORCINE) 40 MG/0.4 ML DISP.SYRIN SQ SCH (10:03)
[2020-04-05] MEDS: FENTANYL NS IVPB 500 MCG/100 ML BAG IVPB SCH ×2 (13:00→19:10)
[2020-04-05] MEDS: POLYETHYLENE GLYCOL 3350 119 GM BTL PO SCH ×2 (13:40→22:24)
[2020-04-05] MEDS ORDERED: PT OWN MED DRAWER 7, Y5N ONE (22:21)
[2020-04-05] MEDS: SENNOSIDES 8.8 MG/5 ML BULK BOTTLE PO SCH (22:23)
[2020-04-05] MEDS: CHLORHEXIDINE GLUCONATE 4% CLEANSER FOR DECOLONIZATION TP SCH (22:53)
[2020-04-06] MEDS: MIDAZOLAM 100 MG/100 ML MG IVPB SCH ×2 (01:30→08:49)
[2020-04-06] MEDS: FENTANYL NS IVPB 500 MCG/100 ML BAG IVPB SCH ×2 (02:41→10:00)
[2020-04-06 07:41] LABS: BASO % 0.1 % (0-2.0); EOS % 0.5 % (0-4.5); HEMATOCRIT 22.3 % (32.4-45.2); HEMOGLOBIN 7.4 GM/dL (10.7-15.3); LYMPH % 7.6 % (8-40); MEAN CELL VOLUME 102.9 fl (80-96); MEAN PLT VOLUME 6.6 fl (7.5-11.1); MONO % 5.2 % (3.8-10.2); NEUT % 86.6 % (42.8-82.8); PLATELET COUNT 338 K/MM3 (134-434); RBC 2.16 M/mm3 (3.60-5.2); RDW 18.6 % (11.6-15.6); WHITE BLOOD COUNT 6.9 K/mm3 (4.0-10.0)
[2020-04-06 08:04] LABS: ALBUMIN 1.6 g/dl (3.4-5.0); BLOOD UREA NITROGEN 22.3 mg/dL (7-18)
[2020-04-06 08:07] LABS: CREATININE 0.2 mg/dL (0.55-1.3)
[2020-04-06 08:09] LABS: BILIRUBIN,TOTAL 0.7 mg/dL (0.2-1)
[2020-04-06] MEDS: AMINO ACIDS/PROTEIN HYDROLYS 30 ML LIQUID.PKT PO SCH (08:48)
[2020-04-06] MEDS: PROPOFOL 1,000,000 MCG/100 ML VIAL IVPB SCH ×2 (08:48→09:06)
[2020-04-06] MEDS: SODIUM CHLORIDE 1,000 ML IV SCH (09:06)
[2020-04-06] MEDS: DEXAMETHASONE SOD PHOSPHATE 4 MG/1 ML VIAL IVPUSH SCH (09:06)
[2020-04-06] MEDS: ZINC SULFATE 220 MG CAPSULE (FP) NGT SCH ×2 (10:23→22:10)
[2020-04-06] MEDS: POLYETHYLENE GLYCOL 3350 119 GM BTL PO SCH ×2 (10:23→22:11)
[2020-04-06] MEDS: FAMOTIDINE 20 MG TABLET NGT SCH ×2 (10:23→22:10)
[2020-04-06] MEDS: ENOXAPARIN NA (PORCINE) 40 MG/0.4 ML DISP.SYRIN SQ SCH (10:24)
[2020-04-06] MEDS: ASCORBIC ACID 500 MG TABLET (FP) NGT SCH ×2 (10:24→22:10)
[2020-04-06] MEDS: CHOLECALCIFEROL (VIT D3) 1,000 UNIT (25 MCG) TABLET PO SCH (10:25)
[2020-04-06 11:38] LABS: ANISOCYTOSIS 2+; MACROCYTOSIS 1+; PLATELET ESTIMATE NORMAL
[2020-04-06] MEDS ORDERED: ALBUTEROL SO4 2.5/IPRATROPIUM 0.5 INH SOL 3 ML VIAL.NEB. NEB SCH (12:00)
[2020-04-06] MEDS ORDERED: PT OWN MED DRAWER 7, Y5N ONE (22:08)
[2020-04-06] MEDS: CHLORHEXIDINE GLUCONATE 4% CLEANSER FOR DECOLONIZATION TP SCH (22:10)
[2020-04-06] MEDS: SENNOSIDES 8.8 MG/5 ML BULK BOTTLE PO SCH (22:10)
[2020-04-06] MEDS ORDERED: PIPERACILLIN/TAZOB 4.5 GM 4.5 GM in DEXTROSE 5%-WATER 100 ML IVPB ONE (23:01)
[2020-04-06] MEDS ORDERED: VANCOMYCIN/WATER 1,250 MG/250 ML BAG IVPB ONE (23:01)
[2020-04-07] MEDS: FENTANYL NS IVPB 500 MCG/100 ML BAG IVPB SCH ×4 (00:09→22:22)
[2020-04-07] MEDS ORDERED: LACTATED RINGERS SOLUTION 1000 ML INFUS.BAG IV ONE (06:56)
[2020-04-07 07:05] LABS: BASO % 0.2 % (0-2.0); EOS % 0.5 % (0-4.5); HEMATOCRIT 19.4 % (32.4-45.2); HEMOGLOBIN 6.4 GM/dL (10.7-15.3); LYMPH % 9.2 % (8-40); MCH 33.8 pg (25.7-33.7); MCHC 32.9 g/dl (32.0-36.0); MEAN CELL VOLUME 102.6 fl (80-96); MEAN PLT VOLUME 6.8 fl (7.5-11.1); MONO % 4.2 % (3.8-10.2); NEUT % 85.9 % (42.8-82.8); PLATELET COUNT 315 K/MM3 (134-434); RBC 1.89 M/mm3 (3.60-5.2); RDW 17.9 % (11.6-15.6)
[2020-04-07 07:50] LABS: WHITE BLOOD COUNT 8.6 K/mm3 (4.0-10.0)
[2020-04-07 07:53] LABS: CHLORIDE 95 mmol/L (98-107); SODIUM 136 mmol/L (136-145)
[2020-04-07 08:34] LABS: CALCIUM 7.5 mg/dL (8.5-10.1)
[2020-04-07 08:35] LABS: ALBUMIN 1.4 g/dl (3.4-5.0); ANION GAP 3 MMOL/L (8-16); BLOOD UREA NITROGEN 15.5 mg/dL (7-18); CO2 38 mmol/L (21-32); GLUCOSE,RANDOM 76 mg/dL (74-106); MAGNESIUM 1.5 mg/dL (1.8-2.4)
[2020-04-07 08:36] LABS: ALK PHOS 80 U/L (45-117); CREATININE < 0.2 mg/dL (0.55-1.3); SGPT/ALT 60 U/L (13-61)
[2020-04-07 08:37] LABS: BILIRUBIN,TOTAL 0.2 mg/dL (0.2-1); PHOSPHOROUS 1.9 mg/dL (2.5-4.9)
[2020-04-07 08:38] LABS: TOT PROT 4.5 g/dl (6.4-8.2)
[2020-04-07 08:39] LABS: SGOT/AST 65 U/L (15-37)
[2020-04-07] MEDS: SODIUM CHLORIDE 1,000 ML IV SCH (09:00)
[2020-04-07] MEDS: AMINO ACIDS/PROTEIN HYDROLYS 30 ML LIQUID.PKT PO SCH (09:02)
[2020-04-07] MEDS: PROPOFOL 1,000,000 MCG/100 ML VIAL IVPB SCH (09:32)
[2020-04-07] MEDS: DEXAMETHASONE SOD PHOSPHATE 4 MG/1 ML VIAL IVPUSH SCH (10:27)
[2020-04-07] MEDS: FAMOTIDINE 20 MG TABLET NGT SCH ×2 (10:28→22:53)
[2020-04-07] MEDS: ZINC SULFATE 220 MG CAPSULE (FP) NGT SCH ×2 (10:28→22:50)
[2020-04-07] MEDS: ASCORBIC ACID 500 MG TABLET (FP) NGT SCH ×2 (10:28→22:50)
[2020-04-07] MEDS: CHOLECALCIFEROL (VIT D3) 1,000 UNIT (25 MCG) TABLET PO SCH (10:29)
[2020-04-07] MEDS: POLYETHYLENE GLYCOL 3350 119 GM BTL PO SCH ×2 (10:31→22:52)
[2020-04-07 12:11] LABS: ANISOCYTOSIS 1+; MACROCYTOSIS 1+; PLATELET ESTIMATE NORMAL
[2020-04-07] MEDS: VANCOMYCIN/WATER BAGS 1,250 MG/250 ML BAG IVPB SCH (13:54)
[2020-04-07] MEDS: ENOXAPARIN NA (PORCINE) 40 MG/0.4 ML DISP.SYRIN SQ SCH (15:07)
[2020-04-07] MEDS: ACETAMINOPHEN 1000 MG/100 ML VIAL (NON FORMULARY) IVPB PRN (17:38)
[2020-04-07] MEDS ORDERED: PT OWN MED DRAWER 7, Y5N ONE (22:49)
[2020-04-07] MEDS: SENNOSIDES 8.8 MG/5 ML BULK BOTTLE PO SCH (22:50)
[2020-04-07] MEDS: CHLORHEXIDINE GLUCONATE 4% CLEANSER FOR DECOLONIZATION TP SCH (22:52)
[2020-04-07 23:29] LABS: HEMOGLOBIN 8.3 GM/dL (10.7-15.3); MCH 32.8 pg (25.7-33.7); MCHC 33.4 g/dl (32.0-36.0); MEAN CELL VOLUME 98.2 fl (80-96); MEAN PLT VOLUME 6.2 fl (7.5-11.1); PLATELET COUNT 296 K/MM3 (134-434); RBC 2.54 M/mm3 (3.60-5.2); RDW 18.8 % (11.6-15.6); WHITE BLOOD COUNT 10.6 K/mm3 (4.0-10.0)
[2020-04-08] MEDS: VANCOMYCIN/WATER BAGS 1,250 MG/250 ML BAG IVPB SCH (04:50)
[2020-04-08] MEDS: FENTANYL NS IVPB 500 MCG/100 ML BAG IVPB SCH ×3 (05:00→17:22)
[2020-04-08 07:27] LABS: HEMATOCRIT 26.1 % (32.4-45.2); HEMOGLOBIN 8.7 GM/dL (10.7-15.3); MCHC 33.4 g/dl (32.0-36.0); MEAN CELL VOLUME 98.9 fl (80-96); MEAN PLT VOLUME 6.8 fl (7.5-11.1); PLATELET COUNT 332 K/MM3 (134-434); RBC 2.64 M/mm3 (3.60-5.2); RDW 18.8 % (11.6-15.6); WHITE BLOOD COUNT 10.7 K/mm3 (4.0-10.0)
[2020-04-08 07:56] LABS: ALBUMIN 1.7 g/dl (3.4-5.0)
[2020-04-08 07:59] LABS: CREATININE < 0.2 mg/dL (0.55-1.3)
[2020-04-08 08:01] LABS: TOT PROT 5.2 g/dl (6.4-8.2)
[2020-04-08 09:30] LABS: ALK PHOS 104 U/L (45-117); ANION GAP 4 MMOL/L (8-16); BILIRUBIN,TOTAL 0.3 mg/dL (0.2-1); BLOOD UREA NITROGEN 12.7 mg/dL (7-18); CALCIUM 7.7 mg/dL (8.5-10.1); CHLORIDE 93 mmol/L (98-107); CO2 40 mmol/L (21-32); GLUCOSE,RANDOM 112 mg/dL (74-106); MAGNESIUM 1.4 mg/dL (1.8-2.4); PHOSPHOROUS 2.3 mg/dL (2.5-4.9); POTASSIUM 3.5 mmol/L (3.5-5.1); SGOT/AST 113 U/L (15-37); SGPT/ALT 93 U/L (13-61); SODIUM 136 mmol/L (136-145)
[2020-04-08] MEDS: MIDAZOLAM 100 MG/100 ML MG IVPB SCH (09:33)
[2020-04-08] MEDS: AMINO ACIDS/PROTEIN HYDROLYS 30 ML LIQUID.PKT PO SCH (09:35)
[2020-04-08] MEDS: ZINC SULFATE 220 MG CAPSULE (FP) NGT SCH ×2 (09:37→21:25)
[2020-04-08] MEDS: POLYETHYLENE GLYCOL 3350 119 GM BTL PO SCH ×3 (09:37→21:27)
[2020-04-08] MEDS: CHOLECALCIFEROL (VIT D3) 1,000 UNIT (25 MCG) TABLET PO SCH (09:37)
[2020-04-08] MEDS: ASCORBIC ACID 500 MG TABLET (FP) NGT SCH ×2 (09:37→21:25)
[2020-04-08] MEDS: FAMOTIDINE 20 MG TABLET NGT SCH ×2 (09:37→21:26)
[2020-04-08] MEDS: DEXAMETHASONE SOD PHOSPHATE 4 MG/1 ML VIAL IVPUSH SCH (09:37)
[2020-04-08] MEDS: SODIUM CHLORIDE 1,000 ML IV SCH (10:54)
[2020-04-08] MEDS: PROPOFOL 1,000,000 MCG/100 ML VIAL IVPB SCH (10:56)
[2020-04-08] MEDS ORDERED: MAGNESIUM 1GM/D5W 100ML - 100 ML IVPB IVPB ONE (12:30)
[2020-04-08] MEDS ORDERED: PT OWN MED DRAWER 7, Y5N ONE ×2 (12:56→21:24)
[2020-04-08] MEDS ORDERED: SODIUM PHOSPHATE - 20 MM in SODIUM CHLORIDE 250 ML IVPB ONE (13:00)
[2020-04-08] MEDS: SENNOSIDES 8.8 MG/5 ML BULK BOTTLE PO SCH (21:26)
[2020-04-08] MEDS: CHLORHEXIDINE GLUCONATE 4% CLEANSER FOR DECOLONIZATION TP SCH (21:27)
[2020-04-09 07:27] LABS: HEMATOCRIT 28.6 % (32.4-45.2); HEMOGLOBIN 9.6 GM/dL (10.7-15.3); MCHC 33.4 g/dl (32.0-36.0); MEAN CELL VOLUME 98.8 fl (80-96); MEAN PLT VOLUME 6.7 fl (7.5-11.1); PLATELET COUNT 355 K/MM3 (134-434); RDW 18.9 % (11.6-15.6); WHITE BLOOD COUNT 11.7 K/mm3 (4.0-10.0)
[2020-04-09] MEDS: MIDAZOLAM 100 MG/100 ML MG IVPB SCH ×2 (07:47→21:04)
[2020-04-09 07:51] LABS: CHLORIDE 92 mmol/L (98-107); POTASSIUM 3.5 mmol/L (3.5-5.1); SODIUM 136 mmol/L (136-145)
[2020-04-09 07:54] LABS: ALBUMIN 1.8 g/dl (3.4-5.0); BLOOD UREA NITROGEN 13.5 mg/dL (7-18); CALCIUM 7.8 mg/dL (8.5-10.1); GLUCOSE,RANDOM 113 mg/dL (74-106)
[2020-04-09 07:55] LABS: ANION GAP 1 MMOL/L (8-16); CO2 43 mmol/L (21-32); MAGNESIUM 1.6 mg/dL (1.8-2.4)
[2020-04-09 07:58] LABS: CREATININE < 0.2 mg/dL (0.55-1.3); PHOSPHOROUS 2.8 mg/dL (2.5-4.9); SGOT/AST 102 U/L (15-37); SGPT/ALT 105 U/L (13-61)
[2020-04-09 07:59] LABS: BILIRUBIN,TOTAL 0.3 mg/dL (0.2-1); TOT PROT 5.8 g/dl (6.4-8.2)
[2020-04-09 08:00] LABS: ALK PHOS 114 U/L (45-117); LDH 446 U/L (84-246)
[2020-04-09] MEDS: AMINO ACIDS/PROTEIN HYDROLYS 30 ML LIQUID.PKT PO SCH (08:03)
[2020-04-09] MEDS: PROPOFOL 1,000,000 MCG/100 ML VIAL IVPB SCH (09:05)
[2020-04-09] MEDS: DEXAMETHASONE SOD PHOSPHATE 4 MG/1 ML VIAL IVPUSH SCH (09:06)
[2020-04-09] MEDS: CHOLECALCIFEROL (VIT D3) 1,000 UNIT (25 MCG) TABLET PO SCH (09:06)
[2020-04-09] MEDS: ENOXAPARIN NA (PORCINE) 80 MG/0.8 ML DISP.SYRIN SQ SCH ×2 (09:06→21:01)
[2020-04-09] MEDS: ZINC SULFATE 220 MG CAPSULE (FP) NGT SCH ×2 (09:06→21:02)
[2020-04-09] MEDS: ASCORBIC ACID 500 MG TABLET (FP) NGT SCH ×2 (09:07→21:01)
[2020-04-09] MEDS: FAMOTIDINE 20 MG TABLET NGT SCH ×2 (09:07→21:04)
[2020-04-09] MEDS: POLYETHYLENE GLYCOL 3350 119 GM BTL PO SCH (09:08)
[2020-04-09 11:04] LABS: ARTERIAL BLD GAS O2 SATURATION 81.1 mmHg (95-98); ARTERIAL BLOOD GAS BASE EXCESS 9.6 mmol/L (-2-2); ARTERIAL BLOOD GAS PO2 50.4 mmHg (80-100); ARTERIAL BLOOD GAS pH 7.325 (7.350-7.450)
[2020-04-09 11:06] LABS: ALLENS TEST POSITIVE
[2020-04-09 11:07] LABS: VENT MODE A/C
[2020-04-09 11:08] LABS: VENT RATE 30
[2020-04-09] MEDS ORDERED: VECURONIUM BROMIDE 50 MG/50 ML VIAL IVPUSH ONE (11:25)
[2020-04-09] MEDS ORDERED: VECURONIUM BROMIDE 10 MG/10 ML VIAL IVPUSH ONE (12:00)
[2020-04-09] MEDS ORDERED: MAGNESIUM 1GM/D5W 100ML - 100 ML IVPB IVPB ONE (14:00)
[2020-04-09] MEDS ORDERED: PT OWN MED DRAWER 7, Y5N ONE ×2 (20:41→20:54)
[2020-04-09] MEDS: SENNOSIDES 8.8 MG/5 ML BULK BOTTLE PO SCH (21:02)
[2020-04-09] MEDS: SODIUM CHLORIDE 1,000 ML IV SCH (21:02)
[2020-04-09] MEDS: FENTANYL NS IVPB 500 MCG/100 ML BAG IVPB SCH (21:03)
[2020-04-09] MEDS: CHLORHEXIDINE GLUCONATE 4% CLEANSER FOR DECOLONIZATION TP SCH (21:03)
[2020-04-10] MEDS: PROPOFOL 1,000,000 MCG/100 ML VIAL IVPB SCH ×2 (01:35→09:37)
[2020-04-10] MEDS: FENTANYL NS IVPB 500 MCG/100 ML BAG IVPB SCH ×4 (05:49→22:35)
[2020-04-10] MEDS: MIDAZOLAM 100 MG/100 ML MG IVPB SCH ×4 (05:49→22:35)
[2020-04-10 07:21] LABS: HEMATOCRIT 26.7 % (32.4-45.2); HEMOGLOBIN 8.7 GM/dL (10.7-15.3); MCH 32.9 pg (25.7-33.7); MCHC 32.6 g/dl (32.0-36.0); MEAN CELL VOLUME 100.9 fl (80-96); PLATELET COUNT 345 K/MM3 (134-434); RBC 2.65 M/mm3 (3.60-5.2); RDW 18.8 % (11.6-15.6); WHITE BLOOD COUNT 13.1 K/mm3 (4.0-10.0)
[2020-04-10 07:29] LABS: CHLORIDE 91 mmol/L (98-107); POTASSIUM 3.3 mmol/L (3.5-5.1); SODIUM 136 mmol/L (136-145)
[2020-04-10 07:33] LABS: ALBUMIN 1.7 g/dl (3.4-5.0)
[2020-04-10 07:36] LABS: ANION GAP 3 MMOL/L (8-16); CALCIUM 7.5 mg/dL (8.5-10.1); CO2 41 mmol/L (21-32); GLUCOSE,RANDOM 110 mg/dL (74-106); MAGNESIUM 1.7 mg/dL (1.8-2.4); PHOSPHOROUS 1.7 mg/dL (2.5-4.9)
[2020-04-10 07:39] LABS: SGOT/AST 63 U/L (15-37); SGPT/ALT 79 U/L (13-61)
[2020-04-10 07:40] LABS: TOT PROT 5.5 g/dl (6.4-8.2)
[2020-04-10 07:42] LABS: ALK PHOS 114 U/L (45-117)
[2020-04-10 07:43] LABS: LDH 429 U/L (84-246)
[2020-04-10 07:44] LABS: BILIRUBIN,TOTAL 0.4 mg/dL (0.2-1)
[2020-04-10 08:30] LABS: CREATININE < 0.2 mg/dL (0.55-1.3)
[2020-04-10] MEDS ORDERED: MAGNESIUM 1GM/D5W 100ML - 100 ML IVPB IVPB ONE (09:15)
[2020-04-10] MEDS ORDERED: PT OWN MED DRAWER 7, Y5N ONE ×3 (09:18→22:32)
[2020-04-10] MEDS: AMINO ACIDS/PROTEIN HYDROLYS 30 ML LIQUID.PKT PO SCH (09:28)
[2020-04-10] MEDS: ENOXAPARIN NA (PORCINE) 80 MG/0.8 ML DISP.SYRIN SQ SCH ×2 (09:30→22:34)
[2020-04-10] MEDS ORDERED: POTASSIUM CHLORIDE 20 MEQ PREMIX IVPB 100 ML IVPB ONE (09:30)
[2020-04-10] MEDS: ASCORBIC ACID 500 MG TABLET (FP) NGT SCH ×2 (09:31→22:34)
[2020-04-10] MEDS: CHOLECALCIFEROL (VIT D3) 1,000 UNIT (25 MCG) TABLET PO SCH (09:31)
[2020-04-10] MEDS: FAMOTIDINE 20 MG TABLET NGT SCH ×2 (09:31→22:34)
[2020-04-10] MEDS: ZINC SULFATE 220 MG CAPSULE (FP) NGT SCH ×2 (09:31→22:34)
[2020-04-10] MEDS: SODIUM CHLORIDE 1,000 ML IV SCH (09:31)
[2020-04-10] MEDS: DEXAMETHASONE SOD PHOSPHATE 4 MG/1 ML VIAL IVPUSH SCH (09:32)
[2020-04-10] MEDS: KCL 10 MEQ IVPB 10 MEQ/100 ML INFUS.BAG IVPB SCH ×2 (09:37→12:37)
[2020-04-10] MEDS: MULTIVIT-MINERALS ORAL LIQUID PO SCH (09:37)
[2020-04-10 09:44] LABS: ARTERIAL BLD GAS O2 SATURATION 90.9 mmHg (95-98); ARTERIAL BLOOD GAS BASE EXCESS 14.4 mmol/L (-2-2); ARTERIAL BLOOD GAS PO2 64.7 mmHg (80-100); ARTERIAL BLOOD GAS pH 7.366 (7.350-7.450)
[2020-04-10 09:47] LABS: ALLENS TEST POSITIVE
[2020-04-10 09:48] LABS: VENT MODE V-A/C; VENT RATE 30
[2020-04-10] MEDS ORDERED: FENTANYL NS IVPB 500 MCG/100 ML BAG IVPB ONE (22:32)
[2020-04-10] MEDS: DOCUSATE NA 100 MG/10 ML UNIT-DOSE CUPS PO PRN (22:34)
[2020-04-10] MEDS: SENNOSIDES 8.8 MG/5 ML BULK BOTTLE PO SCH (22:34)
[2020-04-10] MEDS: CHLORHEXIDINE GLUCONATE 4% CLEANSER FOR DECOLONIZATION TP SCH (22:35)
[2020-04-11 06:54] LABS: HEMATOCRIT 25.6 % (32.4-45.2); HEMOGLOBIN 8.5 GM/dL (10.7-15.3); MCH 32.9 pg (25.7-33.7); MCHC 33.1 g/dl (32.0-36.0); MEAN CELL VOLUME 99.6 fl (80-96); MEAN PLT VOLUME 6.8 fl (7.5-11.1); PLATELET COUNT 328 K/MM3 (134-434); RBC 2.57 M/mm3 (3.60-5.2); RDW 18.8 % (11.6-15.6); WHITE BLOOD COUNT 12.6 K/mm3 (4.0-10.0)
[2020-04-11 07:16] LABS: CHLORIDE 93 mmol/L (98-107); POTASSIUM 3.6 mmol/L (3.5-5.1); SODIUM 138 mmol/L (136-145)
[2020-04-11 07:21] LABS: ALBUMIN 1.7 g/dl (3.4-5.0); ANION GAP 2 MMOL/L (8-16); BLOOD UREA NITROGEN 13.4 mg/dL (7-18); CALCIUM 7.7 mg/dL (8.5-10.1); CO2 43 mmol/L (21-32); GLUCOSE,RANDOM 111 mg/dL (74-106)
[2020-04-11 07:22] LABS: MAGNESIUM 1.8 mg/dL (1.8-2.4); PHOSPHOROUS 1.6 mg/dL (2.5-4.9)
[2020-04-11 07:23] LABS: BILIRUBIN,TOTAL 0.3 mg/dL (0.2-1); LDH 347 U/L (84-246); SGOT/AST 46 U/L (15-37); SGPT/ALT 66 U/L (13-61)
[2020-04-11 07:24] LABS: TOT PROT 5.3 g/dl (6.4-8.2)
[2020-04-11 07:24] LABS: ARTERIAL BLD GAS O2 SATURATION 91.8 mmHg (95-98); ARTERIAL BLOOD GAS BASE EXCESS 14.4 mmol/L (-2-2); ARTERIAL BLOOD GAS PO2 67.3 mmHg (80-100); ARTERIAL BLOOD GAS pH 7.365 (7.350-7.450)
[2020-04-11 07:25] LABS: ALK PHOS 110 U/L (45-117)
[2020-04-11 07:37] LABS: ALLENS TEST POSITIVE
[2020-04-11 07:38] LABS: VENT MODE V/AC; VENT RATE 30
[2020-04-11] MEDS ORDERED: FENTANYL NS IVPB 500 MCG/100 ML BAG IVPB ONE (07:54)
[2020-04-11] MEDS: AMINO ACIDS/PROTEIN HYDROLYS 30 ML LIQUID.PKT PO SCH (08:22)
[2020-04-11] MEDS: PROPOFOL 1,000,000 MCG/100 ML VIAL IVPB SCH (08:23)
[2020-04-11 08:34] LABS: CREATININE < 0.2 mg/dL (0.55-1.3)
[2020-04-11] MEDS: ENOXAPARIN NA (PORCINE) 80 MG/0.8 ML DISP.SYRIN SQ SCH ×2 (09:14→23:32)
[2020-04-11] MEDS: CHOLECALCIFEROL (VIT D3) 1,000 UNIT (25 MCG) TABLET PO SCH (09:14)
[2020-04-11] MEDS: MULTIVIT-MINERALS ORAL LIQUID PO SCH (09:15)
[2020-04-11] MEDS: ASCORBIC ACID 500 MG TABLET (FP) NGT SCH (09:15)
[2020-04-11] MEDS: FAMOTIDINE 20 MG TABLET NGT SCH ×2 (09:15→23:33)
[2020-04-11] MEDS: SODIUM CHLORIDE 1,000 ML IV SCH (09:15)
[2020-04-11] MEDS: ZINC SULFATE 220 MG CAPSULE (FP) NGT SCH (09:15)
[2020-04-11] MEDS: DEXAMETHASONE SOD PHOSPHATE 4 MG/1 ML VIAL IVPUSH SCH (09:15)
[2020-04-11] MEDS ORDERED: DEXAMETHASONE SOD PHOSPHATE 4 MG/1 ML VIAL IVPUSH SCH (10:39)
[2020-04-11] MEDS: FENTANYL IVPB 500 MCG/100 ML BAG IVPB SCH ×2 (10:50→23:33)
[2020-04-11] MEDS ORDERED: FUROSEMIDE 40 MG/4 ML INJECTABLE VIAL IVPUSH ONE (11:00)
[2020-04-11] MEDS ORDERED: POTASSIUM PHOSPHATE 15 MM in SODIUM CHLORIDE 250 ML IVPB ONE (12:00)
[2020-04-11] MEDS ORDERED: PT OWN MED DRAWER 7, Y5N ONE (14:52)
[2020-04-11] MEDS: MIDAZOLAM 100 MG/100 ML MG IVPB SCH ×2 (18:18→23:33)
[2020-04-11] MEDS: CHLORHEXIDINE GLUCONATE 4% CLEANSER FOR DECOLONIZATION TP SCH (23:32)
[2020-04-11] MEDS: SENNOSIDES 8.8 MG/5 ML BULK BOTTLE PO SCH (23:33)
[2020-04-12] MEDS: ACETAMINOPHEN 1000 MG/100 ML VIAL (NON FORMULARY) IVPB PRN (02:17)
[2020-04-12] MEDS: FENTANYL IVPB 500 MCG/100 ML BAG IVPB SCH ×3 (04:40→20:37)
[2020-04-12] MEDS: AMINO ACIDS/PROTEIN HYDROLYS 30 ML LIQUID.PKT PO SCH (07:56)
[2020-04-12] MEDS: MIDAZOLAM 100 MG/100 ML MG IVPB SCH (07:56)
[2020-04-12 08:12] LABS: HEMATOCRIT 25.4 % (32.4-45.2); HEMOGLOBIN 8.3 GM/dL (10.7-15.3); MCH 32.9 pg (25.7-33.7); MCHC 32.7 g/dl (32.0-36.0); MEAN CELL VOLUME 100.4 fl (80-96); MEAN PLT VOLUME 6.8 fl (7.5-11.1); PLATELET COUNT 356 K/MM3 (134-434); RBC 2.53 M/mm3 (3.60-5.2)
[2020-04-12 08:29] LABS: CHLORIDE 88 mmol/L (98-107); POTASSIUM 3.8 mmol/L (3.5-5.1); SODIUM 133 mmol/L (136-145)
[2020-04-12 08:31] LABS: ALBUMIN 1.8 g/dl (3.4-5.0); ANION GAP 1 MMOL/L (8-16); BLOOD UREA NITROGEN 15.2 mg/dL (7-18); CALCIUM 7.5 mg/dL (8.5-10.1); CO2 45 mmol/L (21-32); GLUCOSE,RANDOM 117 mg/dL (74-106); MAGNESIUM 1.5 mg/dL (1.8-2.4)
[2020-04-12 08:34] LABS: PHOSPHOROUS 2.4 mg/dL (2.5-4.9); SGOT/AST 44 U/L (15-37); SGPT/ALT 59 U/L (13-61)
[2020-04-12 08:37] LABS: ALK PHOS 119 U/L (45-117); BILIRUBIN,TOTAL 0.2 mg/dL (0.2-1); TOT PROT 5.5 g/dl (6.4-8.2)
[2020-04-12 08:52] LABS: CREATININE < 0.2 mg/dL (0.55-1.3)
[2020-04-12] MEDS ORDERED: FUROSEMIDE 40 MG/4 ML INJECTABLE VIAL IVPUSH SCH (09:30)
[2020-04-12] MEDS ORDERED: PT OWN MED DRAWER 7, Y5N ONE (09:31)
[2020-04-12] MEDS: MULTIVIT-MINERALS ORAL LIQUID PO SCH (09:34)
[2020-04-12] MEDS: ENOXAPARIN NA (PORCINE) 80 MG/0.8 ML DISP.SYRIN SQ SCH ×2 (09:34→21:30)
[2020-04-12] MEDS: FUROSEMIDE 40 MG/4 ML INJECTABLE VIAL IVPUSH SCH ×2 (09:34→18:26)
[2020-04-12] MEDS: FAMOTIDINE 20 MG TABLET NGT SCH ×2 (09:35→21:31)
[2020-04-12] MEDS: SODIUM CHLORIDE 1,000 ML IV SCH (20:38)
[2020-04-12] MEDS: CHLORHEXIDINE GLUCONATE 4% CLEANSER FOR DECOLONIZATION TP SCH (21:30)
[2020-04-12] MEDS: SENNOSIDES 8.8 MG/5 ML BULK BOTTLE PO SCH (21:31)
[2020-04-12] MEDS ORDERED: NOREPINEPHRINE NS PREMIX 16,000 MCG/500 ML BAG IVPB ONE (22:26)
[2020-04-12] MEDS: NOREPINEPHRINE BITARTRATE 4,000 MCG in DEXTROSE 5%-WATER - 496 ML IV SCH (22:40)
[2020-04-13] MEDS: FENTANYL IVPB 500 MCG/100 ML BAG IVPB SCH ×5 (00:30→16:42)
[2020-04-13] MEDS: MIDAZOLAM 100 MG/100 ML MG IVPB SCH ×3 (01:00→19:10)
[2020-04-13] MEDS: NOREPINEPHRINE BITARTRATE 4,000 MCG in DEXTROSE 5%-WATER - 496 ML IV SCH ×2 (02:17→06:31)
[2020-04-13] MEDS: FUROSEMIDE 40 MG/4 ML INJECTABLE VIAL IVPUSH SCH ×2 (06:31→18:39)
[2020-04-13 07:41] LABS: BASO % 0.6 % (0-2.0); EOS % 0.3 % (0-4.5); HEMATOCRIT 28.5 % (32.4-45.2); HEMOGLOBIN 9.4 GM/dL (10.7-15.3); LYMPH % 8.5 % (8-40); MCH 32.6 pg (25.7-33.7); MEAN CELL VOLUME 98.6 fl (80-96); MONO % 5.6 % (3.8-10.2); PLATELET COUNT 455 K/MM3 (134-434); RBC 2.89 M/mm3 (3.60-5.2); RDW 18.8 % (11.6-15.6); WHITE BLOOD COUNT 16.5 K/mm3 (4.0-10.0)
[2020-04-13 08:08] LABS: POTASSIUM 3.4 mmol/L (3.5-5.1)
[2020-04-13 08:18] LABS: CALCIUM 8.2 mg/dL (8.5-10.1)
[2020-04-13 08:19] LABS: BLOOD UREA NITROGEN 19.9 mg/dL (7-18); MAGNESIUM 1.6 mg/dL (1.8-2.4)
[2020-04-13 08:22] LABS: CREATININE 0.2 mg/dL (0.55-1.3)
[2020-04-13 08:24] LABS: PHOSPHOROUS 2.7 mg/dL (2.5-4.9)
[2020-04-13] MEDS: AMINO ACIDS/PROTEIN HYDROLYS 30 ML LIQUID.PKT PO SCH (08:30)
[2020-04-13] MEDS ORDERED: PT OWN MED DRAWER 7, Y5N ONE ×2 (09:38→21:01)
[2020-04-13] MEDS: FAMOTIDINE 20 MG TABLET NGT SCH ×2 (10:04→21:03)
[2020-04-13] MEDS: ENOXAPARIN NA (PORCINE) 80 MG/0.8 ML DISP.SYRIN SQ SCH ×2 (10:04→21:03)
[2020-04-13] MEDS: MULTIVIT-MINERALS ORAL LIQUID PO SCH (10:04)
[2020-04-13 10:32] LABS: ANISOCYTOSIS 1+; MACROCYTOSIS 1+; PLATELET ESTIMATE NORMAL
[2020-04-13] MEDS ORDERED: KCL 10 MEQ IVPB 10 MEQ/100 ML INFUS.BAG IVPB SCH (13:30)
[2020-04-13] MEDS ORDERED: MAGNESIUM 1GM/D5W 100ML - 100 ML IVPB IVPB ONE (13:30)
[2020-04-13] MEDS: CHLORHEXIDINE GLUCONATE 4% CLEANSER FOR DECOLONIZATION TP SCH (21:00)
[2020-04-13] MEDS: SENNOSIDES 8.8 MG/5 ML BULK BOTTLE PO SCH (21:03)
[2020-04-14] MEDS: NOREPINEPHRINE BITARTRATE 4,000 MCG in DEXTROSE 5%-WATER - 496 ML IV SCH (01:03)
[2020-04-14] MEDS: FENTANYL IVPB 500 MCG/100 ML BAG IVPB SCH ×5 (01:04→22:00)
[2020-04-14] MEDS: FUROSEMIDE 40 MG/4 ML INJECTABLE VIAL IVPUSH SCH ×3 (06:54→21:02)
[2020-04-14] MEDS: MIDAZOLAM 100 MG/100 ML MG IVPB SCH ×2 (06:55→16:33)
[2020-04-14] MEDS ORDERED: FENTANYL NS IVPB 500 MCG/100 ML BAG IVPB ONE (07:51)
[2020-04-14 07:56] LABS: BASO % 0.7 % (0-2.0); EOS % 0.3 % (0-4.5); HEMATOCRIT 29.1 % (32.4-45.2); HEMOGLOBIN 9.8 GM/dL (10.7-15.3); LYMPH % 8.4 % (8-40); MCH 33.1 pg (25.7-33.7); MCHC 33.8 g/dl (32.0-36.0); MEAN PLT VOLUME 6.8 fl (7.5-11.1); MONO % 5.2 % (3.8-10.2); NEUT % 85.4 % (42.8-82.8); PLATELET COUNT 461 K/MM3 (134-434); RBC 2.96 M/mm3 (3.60-5.2); RDW 18.4 % (11.6-15.6); WHITE BLOOD COUNT 14.1 K/mm3 (4.0-10.0)
[2020-04-14 08:08] LABS: CALCIUM 8.3 mg/dL (8.5-10.1); CHLORIDE 77 mmol/L (98-107); SODIUM 130 mmol/L (136-145)
[2020-04-14 08:09] LABS: ALBUMIN 2.1 g/dl (3.4-5.0); BLOOD UREA NITROGEN 18.5 mg/dL (7-18); GLUCOSE,RANDOM 159 mg/dL (74-106)
[2020-04-14 08:12] LABS: CREATININE 0.2 mg/dL (0.55-1.3); PHOSPHOROUS 2.1 mg/dL (2.5-4.9); SGOT/AST 51 U/L (15-37); SGPT/ALT 57 U/L (13-61)
[2020-04-14 08:13] LABS: TOT PROT 6.6 g/dl (6.4-8.2)
[2020-04-14 08:15] LABS: ALK PHOS 127 U/L (45-117)
[2020-04-14 08:16] LABS: ANION GAP 8 MMOL/L (8-16); BILIRUBIN,TOTAL 0.8 mg/dL (0.2-1); CO2 > 45 mmol/L (21-32)
[2020-04-14 08:25] LABS: POTASSIUM 2.9 mmol/L (3.5-5.1)
[2020-04-14] MEDS ORDERED: KCL 10 MEQ IVPB 10 MEQ/100 ML INFUS.BAG IVPB SCH (09:00)
[2020-04-14] MEDS ORDERED: PT OWN MED DRAWER 7, Y5N ONE ×3 (10:47→21:00)
[2020-04-14] MEDS: ENOXAPARIN NA (PORCINE) 80 MG/0.8 ML DISP.SYRIN SQ SCH ×2 (10:48→21:02)
[2020-04-14] MEDS: AMINO ACIDS/PROTEIN HYDROLYS 30 ML LIQUID.PKT PO SCH (10:48)
[2020-04-14] MEDS: MULTIVIT-MINERALS ORAL LIQUID PO SCH (10:48)
[2020-04-14] MEDS: FAMOTIDINE 20 MG TABLET NGT SCH ×2 (10:49→21:02)
[2020-04-14 11:53] LABS: ANISOCYTOSIS 1+; MACROCYTOSIS 1+; PLATELET ESTIMATE NORMAL
[2020-04-14] MEDS ORDERED: POTASSIUM CHLORIDE TABS 20 MEQ TABLET.ER (FP) PO ONE (12:22)
[2020-04-14] MEDS ORDERED: POTASSIUM CHLORIDE 20 MEQ PREMIX IVPB 100 ML IVPB SCH (12:30)
[2020-04-14] MEDS ORDERED: POTASSIUM CHLORIDE ORAL LIQUID 20 MEQ/15 ML PO ONE (12:33)
[2020-04-14] MEDS: POTASSIUM CHLORIDE 20 MEQ PREMIX IVPB 100 ML IVPB SCH ×4 (15:09→16:50)
[2020-04-14] MEDS ORDERED: NOREPINEPHRINE D5W PREMIX 16,000 MCG/500 ML BAG IVPB ONE (20:09)
[2020-04-14] MEDS: NOREPINEPHRINE D5W PREMIX 16,000 MCG/500 ML BAG IVPB SCH (20:11)
[2020-04-14] MEDS: SENNOSIDES 8.8 MG/5 ML BULK BOTTLE PO SCH (21:02)
[2020-04-14] MEDS: CHLORHEXIDINE GLUCONATE 4% CLEANSER FOR DECOLONIZATION TP SCH (21:02)
[2020-04-15] MEDS ORDERED: MIDAZOLAM 100 MG/100 ML MG IVPB ONE (01:21)
[2020-04-15] MEDS ORDERED: FENTANYL NS IVPB 500 MCG/100 ML BAG IVPB ONE (01:21)
[2020-04-15 01:49] LABS: BLOOD UREA NITROGEN 28.8 mg/dL (7-18); CALCIUM 8.1 mg/dL (8.5-10.1); MAGNESIUM 1.7 mg/dL (1.8-2.4)
[2020-04-15 01:52] LABS: CREATININE 0.2 mg/dL (0.55-1.3)
[2020-04-15 01:53] LABS: PHOSPHOROUS 2.7 mg/dL (2.5-4.9)
[2020-04-15] MEDS: FUROSEMIDE 40 MG/4 ML INJECTABLE VIAL IVPUSH SCH ×2 (06:02→17:50)
[2020-04-15] MEDS: FENTANYL IVPB 500 MCG/100 ML BAG IVPB SCH ×3 (06:44→22:00)
[2020-04-15] MEDS ORDERED: MIDAZOLAM 100 MG in SODIUM CHLORIDE 100 ML IVPB SCH (07:00)
[2020-04-15] MEDS: MIDAZOLAM 100 MG/100 ML MG IVPB SCH ×2 (07:30→13:20)
[2020-04-15 08:07] LABS: CHLORIDE 80 mmol/L (98-107); POTASSIUM 4.2 mmol/L (3.5-5.1); SODIUM 130 mmol/L (136-145)
[2020-04-15 08:10] LABS: CALCIUM 8.5 mg/dL (8.5-10.1)
[2020-04-15 08:11] LABS: ALBUMIN 1.9 g/dl (3.4-5.0); GLUCOSE,RANDOM 116 mg/dL (74-106); MAGNESIUM 1.9 mg/dL (1.8-2.4)
[2020-04-15 08:14] LABS: CREATININE 0.2 mg/dL (0.55-1.3); PHOSPHOROUS 2.8 mg/dL (2.5-4.9); SGOT/AST 48 U/L (15-37); SGPT/ALT 55 U/L (13-61)
[2020-04-15 08:15] LABS: BILIRUBIN,TOTAL 0.4 mg/dL (0.2-1); TOT PROT 6.3 g/dl (6.4-8.2)
[2020-04-15 08:16] LABS: ALK PHOS 135 U/L (45-117)
[2020-04-15 08:25] LABS: ANION GAP 5 MMOL/L (8-16); CO2 > 45 mmol/L (21-32)
[2020-04-15] MEDS: MULTIVIT-MINERALS ORAL LIQUID PO SCH (09:31)
[2020-04-15] MEDS: AMINO ACIDS/PROTEIN HYDROLYS 30 ML LIQUID.PKT PO SCH (09:31)
[2020-04-15] MEDS: ENOXAPARIN NA (PORCINE) 80 MG/0.8 ML DISP.SYRIN SQ SCH ×2 (09:32→21:00)
[2020-04-15] MEDS: FAMOTIDINE 20 MG TABLET NGT SCH ×2 (09:32→21:01)
[2020-04-15] MEDS ORDERED: PT OWN MED DRAWER 7, Y5N ONE (14:42)
[2020-04-15] MEDS: CHLORHEXIDINE GLUCONATE 4% CLEANSER FOR DECOLONIZATION TP SCH (21:01)
[2020-04-15] MEDS: SENNOSIDES 8.8 MG/5 ML BULK BOTTLE PO SCH (21:01)
[2020-04-15] MEDS: NOREPINEPHRINE D5W PREMIX 16,000 MCG/500 ML BAG IVPB SCH (21:01)
[2020-04-16] MEDS: ACETAMINOPHEN 1000 MG/100 ML VIAL (NON FORMULARY) IVPB PRN (02:23)
[2020-04-16] MEDS: MIDAZOLAM 100 MG/100 ML MG IVPB SCH ×3 (05:00→23:00)
[2020-04-16] MEDS: FUROSEMIDE 40 MG/4 ML INJECTABLE VIAL IVPUSH SCH ×2 (05:55→17:25)
[2020-04-16 07:49] LABS: POTASSIUM 4.1 mmol/L (3.5-5.1)
[2020-04-16 07:54] LABS: ALBUMIN 1.9 g/dl (3.4-5.0); BLOOD UREA NITROGEN 25.7 mg/dL (7-18); CALCIUM 8.8 mg/dL (8.5-10.1)
[2020-04-16 07:55] LABS: MAGNESIUM 1.9 mg/dL (1.8-2.4)
[2020-04-16 07:57] LABS: PHOSPHOROUS 4.6 mg/dL (2.5-4.9)
[2020-04-16 07:58] LABS: CREATININE 0.2 mg/dL (0.55-1.3)
[2020-04-16 07:59] LABS: TOT PROT 6.4 g/dl (6.4-8.2)
[2020-04-16 08:03] LABS: BILIRUBIN,TOTAL 0.8 mg/dL (0.2-1)
[2020-04-16] MEDS ORDERED: PT OWN MED DRAWER 7, Y5N ONE (09:16)
[2020-04-16] MEDS: MULTIVIT-MINERALS ORAL LIQUID PO SCH (10:14)
[2020-04-16] MEDS: AMINO ACIDS/PROTEIN HYDROLYS 30 ML LIQUID.PKT PO SCH (10:14)
[2020-04-16] MEDS: FAMOTIDINE 20 MG TABLET NGT SCH ×2 (10:14→21:20)
[2020-04-16] MEDS: FENTANYL IVPB 500 MCG/100 ML BAG IVPB SCH ×2 (12:00→23:00)
[2020-04-16] MEDS: NOREPINEPHRINE D5W PREMIX 16,000 MCG/500 ML BAG IVPB SCH (21:19)
[2020-04-16] MEDS: CHLORHEXIDINE GLUCONATE 4% CLEANSER FOR DECOLONIZATION TP SCH (21:20)
[2020-04-16] MEDS: ENOXAPARIN NA (PORCINE) 80 MG/0.8 ML DISP.SYRIN SQ SCH (21:20)
[2020-04-16] MEDS: SENNOSIDES 8.8 MG/5 ML BULK BOTTLE PO SCH (21:20)
[2020-04-17] MEDS: FENTANYL IVPB 500 MCG/100 ML BAG IVPB SCH ×2 (06:10→10:07)
[2020-04-17] MEDS: FUROSEMIDE 40 MG/4 ML INJECTABLE VIAL IVPUSH SCH ×2 (06:10→17:17)
[2020-04-17 07:45] LABS: CHLORIDE 78 mmol/L (98-107); POTASSIUM 3.4 mmol/L (3.5-5.1); SODIUM 130 mmol/L (136-145)
[2020-04-17 07:54] LABS: BLOOD UREA NITROGEN 32.7 mg/dL (7-18); CALCIUM 8.7 mg/dL (8.5-10.1); CREATININE 0.2 mg/dL (0.55-1.3); GLUCOSE,RANDOM 128 mg/dL (74-106)
[2020-04-17] MEDS: AMINO ACIDS/PROTEIN HYDROLYS 30 ML LIQUID.PKT PO SCH (08:30)
[2020-04-17 08:43] LABS: ANION GAP 7 MMOL/L (8-16); CO2 > 45 mmol/L (21-32)
[2020-04-17] MEDS: MIDAZOLAM 100 MG/100 ML MG IVPB SCH (10:06)
[2020-04-17] MEDS: ENOXAPARIN NA (PORCINE) 80 MG/0.8 ML DISP.SYRIN SQ SCH ×2 (10:07→23:02)
[2020-04-17] MEDS: MULTIVIT-MINERALS ORAL LIQUID PO SCH (10:07)
[2020-04-17] MEDS: FAMOTIDINE 20 MG TABLET NGT SCH ×2 (10:08→23:02)
[2020-04-17] MEDS: POTASSIUM CHLORIDE 20 MEQ PREMIX IVPB 100 ML IVPB SCH ×2 (18:19→21:01)
[2020-04-17] MEDS: NOREPINEPHRINE D5W PREMIX 16,000 MCG/500 ML BAG IVPB SCH (23:02)
[2020-04-17] MEDS: CHLORHEXIDINE GLUCONATE 4% CLEANSER FOR DECOLONIZATION TP SCH (23:02)
[2020-04-17] MEDS: SENNOSIDES 8.8 MG/5 ML BULK BOTTLE PO SCH (23:03)
[2020-04-18] MEDS: POTASSIUM CHLORIDE 20 MEQ PREMIX IVPB 100 ML IVPB SCH (00:40)
[2020-04-18] MEDS: FUROSEMIDE 40 MG/4 ML INJECTABLE VIAL IVPUSH SCH (06:40)
[2020-04-18 07:57] LABS: CHLORIDE 79 mmol/L (98-107); POTASSIUM 4.4 mmol/L (3.5-5.1); SODIUM 129 mmol/L (136-145)
[2020-04-18] MEDS: AMINO ACIDS/PROTEIN HYDROLYS 30 ML LIQUID.PKT PO SCH (08:02)
[2020-04-18 08:03] LABS: CALCIUM 8.7 mg/dL (8.5-10.1)
[2020-04-18 08:04] LABS: BLOOD UREA NITROGEN 26.2 mg/dL (7-18); GLUCOSE,RANDOM 101 mg/dL (74-106); MAGNESIUM 1.8 mg/dL (1.8-2.4)
[2020-04-18 08:07] LABS: CREATININE < 0.2 mg/dL (0.55-1.3); PHOSPHOROUS 2.8 mg/dL (2.5-4.9)
[2020-04-18 08:11] LABS: ANION GAP 5 MMOL/L (8-16); CO2 > 45 mmol/L (21-32)
[2020-04-18] MEDS ORDERED: PT OWN MED DRAWER 7, Y5N ONE (08:54)
[2020-04-18] MEDS: FAMOTIDINE 20 MG TABLET NGT SCH ×2 (09:01→21:44)
[2020-04-18] MEDS: MULTIVIT-MINERALS ORAL LIQUID PO SCH (09:01)
[2020-04-18] MEDS: ENOXAPARIN NA (PORCINE) 80 MG/0.8 ML DISP.SYRIN SQ SCH ×2 (09:01→21:43)
[2020-04-18] MEDS: MIDODRINE HCL 5 MG TABLET PO SCH ×3 (10:16→17:29)
[2020-04-18] MEDS: FENTANYL NS IVPB 500 MCG/100 ML BAG IVPB SCH (15:31)
[2020-04-18] MEDS: CHLORHEXIDINE GLUCONATE 4% CLEANSER FOR DECOLONIZATION TP SCH (21:44)
[2020-04-18] MEDS: SENNOSIDES 8.8 MG/5 ML BULK BOTTLE PO SCH (21:44)
[2020-04-18] MEDS: MIDAZOLAM 100 MG/100 ML MG IVPB SCH (21:44)
[2020-04-19 06:20] LABS: ARTERIAL BLD GAS O2 SATURATION 91.1 mmHg (95-98); ARTERIAL BLOOD GAS BASE EXCESS 21.2 mmol/L (-2-2); ARTERIAL BLOOD GAS PO2 63.9 mmHg (80-100); ARTERIAL BLOOD GAS pH 7.404 (7.350-7.450)
[2020-04-19] MEDS: MIDAZOLAM 100 MG/100 ML MG IVPB SCH ×2 (07:00→09:38)
[2020-04-19 07:10] LABS: ALLENS TEST POSITIVE
[2020-04-19 07:12] LABS: VENT MODE V/AC; VENT RATE 30
[2020-04-19 07:19] LABS: MCH 33.2 pg (25.7-33.7); MCHC 33.2 g/dl (32.0-36.0); MEAN CELL VOLUME 99.9 fl (80-96); MEAN PLT VOLUME 6.8 fl (7.5-11.1); PLATELET COUNT 414 K/MM3 (134-434); RDW 18.9 % (11.6-15.6); WHITE BLOOD COUNT 11.9 K/mm3 (4.0-10.0)
[2020-04-19 07:37] LABS: CHLORIDE 83 mmol/L (98-107); POTASSIUM 3.9 mmol/L (3.5-5.1); SODIUM 134 mmol/L (136-145)
[2020-04-19 07:46] LABS: ALBUMIN 1.6 g/dl (3.4-5.0); CALCIUM 8.6 mg/dL (8.5-10.1)
[2020-04-19 07:47] LABS: BLOOD UREA NITROGEN 17.3 mg/dL (7-18); GLUCOSE,RANDOM 116 mg/dL (74-106); MAGNESIUM 1.8 mg/dL (1.8-2.4)
[2020-04-19 07:48] LABS: ALK PHOS 148 U/L (45-117)
[2020-04-19 07:49] LABS: SGPT/ALT 90 U/L (13-61)
[2020-04-19 07:50] LABS: SGOT/AST 113 U/L (15-37)
[2020-04-19 07:51] LABS: BILIRUBIN,TOTAL 0.3 mg/dL (0.2-1); TOT PROT 6.1 g/dl (6.4-8.2)
[2020-04-19 07:57] LABS: ANION GAP 7 MMOL/L (8-16); CO2 > 45 mmol/L (21-32)
[2020-04-19 08:02] LABS: CREATININE < 0.2 mg/dL (0.55-1.3)
[2020-04-19] MEDS: FENTANYL NS IVPB 500 MCG/100 ML BAG IVPB SCH ×3 (08:30→21:14)
[2020-04-19] MEDS ORDERED: PT OWN MED DRAWER 7, Y5N ONE ×2 (09:35→21:20)
[2020-04-19] MEDS: FAMOTIDINE 20 MG TABLET NGT SCH ×2 (09:36→21:34)
[2020-04-19] MEDS: ENOXAPARIN NA (PORCINE) 80 MG/0.8 ML DISP.SYRIN SQ SCH ×2 (09:36→21:34)
[2020-04-19] MEDS: AMINO ACIDS/PROTEIN HYDROLYS 30 ML LIQUID.PKT PO SCH (09:36)
[2020-04-19] MEDS: MULTIVIT-MINERALS ORAL LIQUID PO SCH (09:36)
[2020-04-19] MEDS: MIDODRINE HCL 5 MG TABLET PO SCH ×3 (09:37→17:46)
[2020-04-19] MEDS ORDERED: SODIUM CHLORIDE 0.9% 500 ML INFUS.BAG IV ONE (12:18)
[2020-04-19] MEDS: CHLORHEXIDINE GLUCONATE 4% CLEANSER FOR DECOLONIZATION TP SCH (21:14)
[2020-04-19] MEDS: SENNOSIDES 8.8 MG/5 ML BULK BOTTLE PO SCH (21:34)
[2020-04-20] MEDS ORDERED: NOREPINEPHRINE BITARTRATE 8,000 MCG/500 ML BAG IVPB ONE (06:56)
[2020-04-20 07:13] LABS: CHLORIDE 87 mmol/L (98-107); POTASSIUM 3.6 mmol/L (3.5-5.1); SODIUM 136 mmol/L (136-145)
[2020-04-20 07:19] LABS: ALBUMIN 1.5 g/dl (3.4-5.0); ANION GAP 4 MMOL/L (8-16); BLOOD UREA NITROGEN 18.4 mg/dL (7-18); CALCIUM 8.2 mg/dL (8.5-10.1); CO2 45 mmol/L (21-32); GLUCOSE,RANDOM 114 mg/dL (74-106); MAGNESIUM 1.8 mg/dL (1.8-2.4)
[2020-04-20 07:22] LABS: SGOT/AST 67 U/L (15-37); SGPT/ALT 71 U/L (13-61)
[2020-04-20 07:23] LABS: PHOSPHOROUS 2.9 mg/dL (2.5-4.9)
[2020-04-20 07:24] LABS: BILIRUBIN,TOTAL 0.6 mg/dL (0.2-1); TOT PROT 5.8 g/dl (6.4-8.2)
[2020-04-20 07:25] LABS: ALK PHOS 142 U/L (45-117)
[2020-04-20 07:26] LABS: CREATININE < 0.2 mg/dL (0.55-1.3)
[2020-04-20] MEDS: MIDAZOLAM 100 MG/100 ML MG IVPB SCH (08:07)
[2020-04-20] MEDS: AMINO ACIDS/PROTEIN HYDROLYS 30 ML LIQUID.PKT PO SCH (08:22)
[2020-04-20] MEDS: ENOXAPARIN NA (PORCINE) 80 MG/0.8 ML DISP.SYRIN SQ SCH ×2 (09:02→22:45)
[2020-04-20] MEDS: FAMOTIDINE 20 MG TABLET NGT SCH ×2 (09:02→22:45)
[2020-04-20] MEDS: NOREPINEPHRINE D5W PREMIX 16,000 MCG/500 ML BAG IVPB SCH (09:02)
[2020-04-20] MEDS: MIDODRINE HCL 5 MG TABLET PO SCH ×3 (09:02→17:17)
[2020-04-20] MEDS: MULTIVIT-MINERALS ORAL LIQUID PO SCH (09:03)
[2020-04-20] MEDS: FENTANYL NS IVPB 500 MCG/100 ML BAG IVPB SCH ×3 (12:30→21:30)
[2020-04-20] MEDS: ACETAMINOPHEN 1000 MG/100 ML VIAL (NON FORMULARY) IVPB PRN (16:39)
[2020-04-20] MEDS ORDERED: PT OWN MED DRAWER 7, Y5N ONE ×2 (21:20→21:43)
[2020-04-20] MEDS: CHLORHEXIDINE GLUCONATE 4% CLEANSER FOR DECOLONIZATION TP SCH (21:45)
[2020-04-20] MEDS: SENNOSIDES 8.8 MG/5 ML BULK BOTTLE PO SCH (22:45)
[2020-04-21] MEDS: MIDAZOLAM 100 MG/100 ML MG IVPB SCH ×3 (00:17→21:43)
[2020-04-21] MEDS ORDERED: fentaNYL CITRATE 250 MCG/5 ML VIAL ONE (03:39)
[2020-04-21] MEDS: FENTANYL NS IVPB 500 MCG/100 ML BAG IVPB SCH ×2 (05:00→20:20)
[2020-04-21 06:58] LABS: BASO % 0.6 % (0-2.0); EOS % 0.6 % (0-4.5); HEMATOCRIT 24.6 % (32.4-45.2); HEMOGLOBIN 8.1 GM/dL (10.7-15.3); LYMPH % 6.2 % (8-40); MCH 32.8 pg (25.7-33.7); MCHC 32.8 g/dl (32.0-36.0); MEAN CELL VOLUME 99.9 fl (80-96); MEAN PLT VOLUME 6.6 fl (7.5-11.1); MONO % 4.5 % (3.8-10.2); NEUT % 88.1 % (42.8-82.8); PLATELET COUNT 391 K/MM3 (134-434); RBC 2.46 M/mm3 (3.60-5.2); RDW 19.9 % (11.6-15.6); WHITE BLOOD COUNT 13.7 K/mm3 (4.0-10.0)
[2020-04-21 07:25] LABS: CHLORIDE 88 mmol/L (98-107); POTASSIUM 3.9 mmol/L (3.5-5.1); SODIUM 137 mmol/L (136-145)
[2020-04-21 07:37] LABS: ALBUMIN 1.5 g/dl (3.4-5.0); CALCIUM 8.4 mg/dL (8.5-10.1)
[2020-04-21 07:38] LABS: ANION GAP 4 MMOL/L (8-16); BLOOD UREA NITROGEN 11.6 mg/dL (7-18); CO2 45 mmol/L (21-32); GLUCOSE,RANDOM 132 mg/dL (74-106); MAGNESIUM 1.9 mg/dL (1.8-2.4)
[2020-04-21 07:41] LABS: PHOSPHOROUS 3.3 mg/dL (2.5-4.9); SGOT/AST 61 U/L (15-37)
[2020-04-21 07:42] LABS: BILIRUBIN,TOTAL 0.5 mg/dL (0.2-1); SGPT/ALT 70 U/L (13-61); TOT PROT 6.3 g/dl (6.4-8.2)
[2020-04-21 07:44] LABS: ALK PHOS 164 U/L (45-117)
[2020-04-21] MEDS: AMINO ACIDS/PROTEIN HYDROLYS 30 ML LIQUID.PKT PO SCH (07:57)
[2020-04-21 07:58] LABS: CREATININE < 0.2 mg/dL (0.55-1.3)
[2020-04-21 09:42] LABS: ANISOCYTOSIS 1+; MACROCYTOSIS 1+; PLATELET ESTIMATE NORMAL
[2020-04-21] MEDS: MIDODRINE HCL 5 MG TABLET PO SCH ×3 (10:30→18:38)
[2020-04-21] MEDS: FAMOTIDINE 20 MG TABLET NGT SCH ×2 (10:31→21:43)
[2020-04-21] MEDS: ENOXAPARIN NA (PORCINE) 80 MG/0.8 ML DISP.SYRIN SQ SCH ×2 (10:31→21:43)
[2020-04-21] MEDS: MULTIVIT-MINERALS ORAL LIQUID PO SCH (10:31)
[2020-04-21] MEDS ORDERED: MORPHINE SULFATE 2 MG/ML VIAL IM ONE (12:15)
[2020-04-21] MEDS ORDERED: SODIUM CHLORIDE 500 ML IV STA (13:29)
[2020-04-21] MEDS: DOCUSATE NA 100 MG/10 ML UNIT-DOSE CUPS PO PRN (14:17)
[2020-04-21] MEDS: ACETAMINOPHEN 1000 MG/100 ML VIAL (NON FORMULARY) IVPB PRN (14:55)
[2020-04-21] MEDS ORDERED: SODIUM CHLORIDE 0.9% 500 ML INFUS.BAG IV ONE (18:42)
[2020-04-21] MEDS: CHLORHEXIDINE GLUCONATE 4% CLEANSER FOR DECOLONIZATION TP SCH (21:42)
[2020-04-21] MEDS: SENNOSIDES 8.8 MG/5 ML BULK BOTTLE PO SCH (21:43)
[2020-04-21] MEDS: NOREPINEPHRINE D5W PREMIX 16,000 MCG/500 ML BAG IVPB SCH ×2 (21:44→21:45)
[2020-04-21] MEDS ORDERED: PT OWN MED DRAWER 7, Y5N ONE (21:53)
[2020-04-22 07:29] LABS: BASO % 0.2 % (0-2.0); EOS % 0.5 % (0-4.5); HEMOGLOBIN 7.4 GM/dL (10.7-15.3); LYMPH % 10.1 % (8-40); MCH 32.9 pg (25.7-33.7); MEAN CELL VOLUME 102.7 fl (80-96); MEAN PLT VOLUME 6.9 fl (7.5-11.1); MONO % 4.3 % (3.8-10.2); NEUT % 84.9 % (42.8-82.8); PLATELET COUNT 390 K/MM3 (134-434); RBC 2.24 M/mm3 (3.60-5.2); RDW 19.4 % (11.6-15.6); WHITE BLOOD COUNT 13.5 K/mm3 (4.0-10.0)
[2020-04-22] MEDS ORDERED: PT OWN MED DRAWER 7, Y5N ONE ×2 (07:40→22:26)
[2020-04-22] MEDS: AMINO ACIDS/PROTEIN HYDROLYS 30 ML LIQUID.PKT PO SCH (07:45)
[2020-04-22 08:01] LABS: CALCIUM 7.9 mg/dL (8.5-10.1)
[2020-04-22 08:02] LABS: ALBUMIN 1.4 g/dl (3.4-5.0); BLOOD UREA NITROGEN 10.8 mg/dL (7-18); CO2 40 mmol/L (21-32); GLUCOSE,RANDOM 129 mg/dL (74-106); MAGNESIUM 1.6 mg/dL (1.8-2.4)
[2020-04-22 08:04] LABS: SGPT/ALT 54 U/L (13-61)
[2020-04-22 08:05] LABS: PHOSPHOROUS 2.5 mg/dL (2.5-4.9); SGOT/AST 45 U/L (15-37)
[2020-04-22 08:06] LABS: BILIRUBIN,TOTAL 0.3 mg/dL (0.2-1); TOT PROT 6.2 g/dl (6.4-8.2)
[2020-04-22 08:07] LABS: ALK PHOS 145 U/L (45-117)
[2020-04-22 08:30] LABS: ANION GAP 4 MMOL/L (8-16); CHLORIDE 91 mmol/L (98-107); POTASSIUM 3.7 mmol/L (3.5-5.1); SODIUM 134 mmol/L (136-145)
[2020-04-22] MEDS: LACTATED RINGERS SOLUTION 1,000 ML/1,000 ML INFUS.BAG IV SCH (08:37)
[2020-04-22] MEDS ORDERED: MIDAZOLAM 100 MG in SODIUM CHLORIDE 100 ML IVPB SCH (08:45)
[2020-04-22] MEDS ORDERED: MAGNESIUM SULF 50% (8.12 MEQ/2 ML-1 GM VIAL) IVPB ONE (08:46)
[2020-04-22 09:04] LABS: ANISOCYTOSIS 2+; MACROCYTOSIS 0; PLATELET ESTIMATE NORMAL
[2020-04-22 09:10] LABS: CREATININE < 0.2 mg/dL (0.55-1.3)
[2020-04-22] MEDS: MULTIVIT-MINERALS ORAL LIQUID PO SCH (09:13)
[2020-04-22] MEDS: MIDODRINE HCL 5 MG TABLET PO SCH ×3 (09:13→18:54)
[2020-04-22] MEDS: FAMOTIDINE 20 MG TABLET NGT SCH ×2 (09:13→22:24)
[2020-04-22] MEDS: ENOXAPARIN NA (PORCINE) 80 MG/0.8 ML DISP.SYRIN SQ SCH ×2 (10:54→22:23)
[2020-04-22] MEDS ORDERED: DEXMEDETOMIDINE IN 0.9 % NACL 200 MCG/50 ML EACH IVPB SCH (11:30)
[2020-04-22] MEDS ORDERED: MIDAZOLAM IN 0.9 % SOD.CHLORID 100 MG/100 ML PLAST..BAG IVPB SCH (12:05)
[2020-04-22] MEDS: DEXMEDETOMIDINE IN 0.9 % NACL 400 MCG/100 ML VIAL IVPB SCH ×2 (12:54→19:48)
[2020-04-22] MEDS: MIDAZOLAM 100 MG/100 ML MG IVPB SCH ×2 (13:12→23:05)
[2020-04-22] MEDS: FENTANYL NS IVPB 500 MCG/100 ML BAG IVPB SCH ×3 (13:23→19:20)
[2020-04-22] MEDS: CHLORHEXIDINE GLUCONATE 4% CLEANSER FOR DECOLONIZATION TP SCH (22:23)
[2020-04-22] MEDS: SENNOSIDES 8.8 MG/5 ML BULK BOTTLE PO SCH (22:24)
[2020-04-23] MEDS: FENTANYL NS IVPB 500 MCG/100 ML BAG IVPB SCH ×4 (00:35→22:13)
[2020-04-23] MEDS ORDERED: VECURONIUM BROMIDE 50 MG/50 ML VIAL IVPUSH ONE (03:27)
[2020-04-23] MEDS ORDERED: VECURONIUM BROMIDE 10 MG/10 ML VIAL ONE (03:35)
[2020-04-23] MEDS: VECURONIUM BROMIDE 100 MG/100 ML BAG IVPB SCH (04:30)
[2020-04-23] MEDS: DEXMEDETOMIDINE IN 0.9 % NACL 400 MCG/100 ML VIAL IVPB SCH ×2 (05:01→14:19)
[2020-04-23] MEDS: NOREPINEPHRINE D5W PREMIX 16,000 MCG/500 ML BAG IVPB SCH ×3 (06:00→21:34)
[2020-04-23] MEDS: LACTATED RINGERS SOLUTION 1,000 ML/1,000 ML INFUS.BAG IV SCH ×2 (06:01→11:47)
[2020-04-23 07:20] LABS: HEMATOCRIT 20.7 % (32.4-45.2); HEMOGLOBIN 6.5 GM/dL (10.7-15.3); MCH 32.5 pg (25.7-33.7); MCHC 31.6 g/dl (32.0-36.0); MEAN PLT VOLUME 6.8 fl (7.5-11.1); PLATELET COUNT 375 K/MM3 (134-434); RBC 2.01 M/mm3 (3.60-5.2); RDW 19.3 % (11.6-15.6); WHITE BLOOD COUNT 13.7 K/mm3 (4.0-10.0)
[2020-04-23 07:47] LABS: CHLORIDE 93 mmol/L (98-107); POTASSIUM 4.2 mmol/L (3.5-5.1); SODIUM 136 mmol/L (136-145)
[2020-04-23 07:51] LABS: SGOT/AST 30 U/L (15-37)
[2020-04-23 07:54] LABS: CALCIUM 8.2 mg/dL (8.5-10.1)
[2020-04-23 07:55] LABS: ALBUMIN 1.3 g/dl (3.4-5.0); ANION GAP 3 MMOL/L (8-16); CO2 40 mmol/L (21-32); GLUCOSE,RANDOM 115 mg/dL (74-106); MAGNESIUM 2.1 mg/dL (1.8-2.4); SGPT/ALT 40 U/L (13-61)
[2020-04-23 07:57] LABS: BILIRUBIN,TOTAL 0.2 mg/dL (0.2-1)
[2020-04-23 07:58] LABS: PHOSPHOROUS 2.8 mg/dL (2.5-4.9)
[2020-04-23 08:03] LABS: TOT PROT 5.6 g/dl (6.4-8.2)
[2020-04-23 08:06] LABS: ALK PHOS 115 U/L (45-117)
[2020-04-23 08:25] LABS: CREATININE < 0.2 mg/dL (0.55-1.3)
[2020-04-23] MEDS: AMINO ACIDS/PROTEIN HYDROLYS 30 ML LIQUID.PKT PO SCH (08:32)
[2020-04-23] MEDS ORDERED: PT OWN MED DRAWER 7, Y5N ONE (09:16)
[2020-04-23] MEDS: ENOXAPARIN NA (PORCINE) 80 MG/0.8 ML DISP.SYRIN SQ SCH (09:17)
[2020-04-23] MEDS: MULTIVIT-MINERALS ORAL LIQUID PO SCH (09:17)
[2020-04-23] MEDS: FAMOTIDINE 20 MG TABLET NGT SCH ×2 (09:18→21:34)
[2020-04-23] MEDS: MIDODRINE HCL 5 MG TABLET PO SCH ×3 (09:18→17:12)
[2020-04-23] MEDS: MIDAZOLAM 100 MG/100 ML MG IVPB SCH ×3 (09:43→22:00)
[2020-04-23] MEDS ORDERED: FUROSEMIDE 40 MG/4 ML INJECTABLE VIAL IVPUSH ONE (16:27)
[2020-04-23] MEDS: SENNOSIDES 8.8 MG/5 ML BULK BOTTLE PO SCH (21:34)
[2020-04-23] MEDS: CHLORHEXIDINE GLUCONATE 4% CLEANSER FOR DECOLONIZATION TP SCH (21:34)
[2020-04-24] MEDS: FENTANYL NS IVPB 500 MCG/100 ML BAG IVPB SCH ×3 (03:06→21:30)
[2020-04-24] MEDS ORDERED: PT OWN MED DRAWER 7, Y5N ONE ×2 (05:37→10:28)
[2020-04-24 07:03] LABS: HEMATOCRIT 27.1 % (32.4-45.2); HEMOGLOBIN 8.8 GM/dL (10.7-15.3); MCH 31.4 pg (25.7-33.7); MCHC 32.4 g/dl (32.0-36.0); MEAN CELL VOLUME 96.8 fl (80-96); MEAN PLT VOLUME 7.1 fl (7.5-11.1); PLATELET COUNT 441 K/MM3 (134-434); RDW 24.4 % (11.6-15.6); WHITE BLOOD COUNT 17.6 K/mm3 (4.0-10.0)
[2020-04-24 07:32] LABS: CHLORIDE 96 mmol/L (98-107); POTASSIUM 4.1 mmol/L (3.5-5.1); SODIUM 134 mmol/L (136-145)
[2020-04-24 07:36] LABS: ALBUMIN 1.4 g/dl (3.4-5.0); ANION GAP 4 MMOL/L (8-16); CALCIUM 7.3 mg/dL (8.5-10.1); CO2 35 mmol/L (21-32); MAGNESIUM 1.5 mg/dL (1.8-2.4)
[2020-04-24 07:37] LABS: GLUCOSE,RANDOM 91 mg/dL (74-106)
[2020-04-24 07:39] LABS: SGOT/AST 34 U/L (15-37); SGPT/ALT 40 U/L (13-61)
[2020-04-24 07:40] LABS: PHOSPHOROUS 3.4 mg/dL (2.5-4.9)
[2020-04-24 07:41] LABS: BILIRUBIN,TOTAL 0.3 mg/dL (0.2-1); TOT PROT 5.9 g/dl (6.4-8.2)
[2020-04-24 07:42] LABS: ALK PHOS 125 U/L (45-117)
[2020-04-24 08:37] LABS: CREATININE < 0.2 mg/dL (0.55-1.3)
[2020-04-24] MEDS ORDERED: MAGNESIUM 2GM/50ML STERILE WATER IVPB IVPB ONE (09:00)
[2020-04-24] MEDS: VECURONIUM BROMIDE 100 MG/100 ML BAG IVPB SCH (09:40)
[2020-04-24] MEDS: MIDODRINE HCL 5 MG TABLET PO SCH ×3 (09:54→18:22)
[2020-04-24] MEDS: FAMOTIDINE 20 MG TABLET NGT SCH ×2 (09:54→21:49)
[2020-04-24] MEDS: LACTATED RINGERS SOLUTION 1,000 ML/1,000 ML INFUS.BAG IV SCH (09:54)
[2020-04-24] MEDS: AMINO ACIDS/PROTEIN HYDROLYS 30 ML LIQUID.PKT PO SCH (09:54)
[2020-04-24] MEDS: MULTIVIT-MINERALS ORAL LIQUID PO SCH (10:29)
[2020-04-24] MEDS: DEXMEDETOMIDINE IN 0.9 % NACL 400 MCG/100 ML VIAL IVPB SCH ×2 (12:00)
[2020-04-24] MEDS: MIDAZOLAM 100 MG/100 ML MG IVPB SCH ×2 (12:59→20:00)
[2020-04-24] MEDS: CHLORHEXIDINE GLUCONATE 4% CLEANSER FOR DECOLONIZATION TP SCH (21:42)
[2020-04-24] MEDS: SENNOSIDES 8.8 MG/5 ML BULK BOTTLE PO SCH (21:42)
[2020-04-24] MEDS: NOREPINEPHRINE D5W PREMIX 16,000 MCG/500 ML BAG IVPB SCH (21:42)
[2020-04-25] MEDS: DEXMEDETOMIDINE IN 0.9 % NACL 400 MCG/100 ML VIAL IVPB SCH ×2 (02:32→12:30)
[2020-04-25] MEDS: FENTANYL NS IVPB 500 MCG/100 ML BAG IVPB SCH ×4 (02:32→18:18)
[2020-04-25 06:50] LABS: HEMATOCRIT 28.9 % (32.4-45.2); HEMOGLOBIN 9.5 GM/dL (10.7-15.3); MCH 31.7 pg (25.7-33.7); MEAN CELL VOLUME 96.1 fl (80-96); MEAN PLT VOLUME 6.8 fl (7.5-11.1); PLATELET COUNT 507 K/MM3 (134-434); RDW 23.6 % (11.6-15.6); WHITE BLOOD COUNT 20.7 K/mm3 (4.0-10.0)
[2020-04-25] MEDS: VECURONIUM BROMIDE 100 MG/100 ML BAG IVPB SCH ×2 (06:52→13:41)
[2020-04-25] MEDS: MIDAZOLAM 100 MG/100 ML MG IVPB SCH ×2 (06:53→17:44)
[2020-04-25 07:08] LABS: CHLORIDE 94 mmol/L (98-107); POTASSIUM 3.9 mmol/L (3.5-5.1); SODIUM 134 mmol/L (136-145)
[2020-04-25 07:14] LABS: CALCIUM 8.2 mg/dL (8.5-10.1)
[2020-04-25 07:15] LABS: ALBUMIN 1.6 g/dl (3.4-5.0); ANION GAP 3 MMOL/L (8-16); BLOOD UREA NITROGEN 18.6 mg/dL (7-18); CO2 38 mmol/L (21-32); GLUCOSE,RANDOM 100 mg/dL (74-106); MAGNESIUM 1.7 mg/dL (1.8-2.4)
[2020-04-25 07:18] LABS: PHOSPHOROUS 3.4 mg/dL (2.5-4.9); SGOT/AST 30 U/L (15-37); SGPT/ALT 41 U/L (13-61)
[2020-04-25 07:19] LABS: BILIRUBIN,TOTAL 0.3 mg/dL (0.2-1)
[2020-04-25 07:20] LABS: TOT PROT 6.9 g/dl (6.4-8.2)
[2020-04-25 07:21] LABS: ALK PHOS 140 U/L (45-117)
[2020-04-25 07:43] LABS: CREATININE < 0.2 mg/dL (0.55-1.3)
[2020-04-25] MEDS ORDERED: PT OWN MED DRAWER 7, Y5N ONE (09:15)
[2020-04-25] MEDS: MULTIVIT-MINERALS ORAL LIQUID PO SCH (09:21)
[2020-04-25] MEDS: AMINO ACIDS/PROTEIN HYDROLYS 30 ML LIQUID.PKT PO SCH (09:21)
[2020-04-25] MEDS: FAMOTIDINE 20 MG TABLET NGT SCH ×2 (09:22→21:55)
[2020-04-25] MEDS: MIDODRINE HCL 5 MG TABLET PO SCH ×3 (09:22→17:44)
[2020-04-25] MEDS ORDERED: ENOXAPARIN NA (PORCINE) 80 MG/0.8 ML DISP.SYRIN SQ SCH (10:00)
[2020-04-25] MEDS: LACTATED RINGERS SOLUTION 1,000 ML/1,000 ML INFUS.BAG IV SCH ×3 (13:43→23:00)
[2020-04-25] MEDS ORDERED: FENTANYL NS IVPB 500 MCG/100 ML BAG IVPB ONE (17:40)
[2020-04-25] MEDS: CHLORHEXIDINE GLUCONATE 4% CLEANSER FOR DECOLONIZATION TP SCH (21:55)
[2020-04-25] MEDS: SENNOSIDES 8.8 MG/5 ML BULK BOTTLE PO SCH (21:55)
[2020-04-25] MEDS: NOREPINEPHRINE D5W PREMIX 16,000 MCG/500 ML BAG IVPB SCH (21:55)
[2020-04-26] MEDS: VECURONIUM BROMIDE 100 MG/100 ML BAG IVPB SCH (04:00)
[2020-04-26] MEDS: MIDAZOLAM 100 MG/100 ML MG IVPB SCH ×3 (05:30→21:22)
[2020-04-26 06:29] LABS: BASO % 0.2 % (0-2.0); HEMATOCRIT 29.8 % (32.4-45.2); HEMOGLOBIN 9.5 GM/dL (10.7-15.3); LYMPH % 5.4 % (8-40); MCH 30.9 pg (25.7-33.7); MCHC 31.9 g/dl (32.0-36.0); MEAN CELL VOLUME 96.7 fl (80-96); MONO % 3.4 % (3.8-10.2); PLATELET COUNT 549 K/MM3 (134-434); RBC 3.08 M/mm3 (3.60-5.2); RDW 22.8 % (11.6-15.6); WHITE BLOOD COUNT 30.1 K/mm3 (4.0-10.0)
[2020-04-26 06:45] LABS: INR 1.34 (0.83-1.09); PROTHROMBIN TIME (PATIENT) 16.1 SEC (9.7-13.0)
[2020-04-26 06:48] LABS: ACTIVATED PTT 33.5 SECONDS (25.2-36.5)
[2020-04-26 06:59] LABS: CHLORIDE 92 mmol/L (98-107); POTASSIUM 3.9 mmol/L (3.5-5.1); SODIUM 134 mmol/L (136-145)
[2020-04-26 07:00] LABS: CALCIUM 8.2 mg/dL (8.5-10.1)
[2020-04-26 07:01] LABS: ALBUMIN 1.4 g/dl (3.4-5.0); ANION GAP 4 MMOL/L (8-16); BLOOD UREA NITROGEN 16.5 mg/dL (7-18); CO2 38 mmol/L (21-32); GLUCOSE,RANDOM 93 mg/dL (74-106)
[2020-04-26 07:04] LABS: SGOT/AST 25 U/L (15-37); SGPT/ALT 29 U/L (13-61)
[2020-04-26 07:06] LABS: BILIRUBIN,TOTAL 0.3 mg/dL (0.2-1); TOT PROT 6.3 g/dl (6.4-8.2)
[2020-04-26 07:07] LABS: ALK PHOS 139 U/L (45-117)
[2020-04-26 07:15] LABS: CREATININE < 0.2 mg/dL (0.55-1.3)
[2020-04-26 09:40] LABS: ANISOCYTOSIS 1+; MACROCYTOSIS 1+; PLATELET ESTIMATE INCREASED
[2020-04-26] MEDS: MIDODRINE HCL 5 MG TABLET PO SCH ×3 (09:56→17:22)
[2020-04-26] MEDS: MULTIVIT-MINERALS ORAL LIQUID PO SCH (09:56)
[2020-04-26] MEDS: AMINO ACIDS/PROTEIN HYDROLYS 30 ML LIQUID.PKT PO SCH (09:56)
[2020-04-26] MEDS: FAMOTIDINE 20 MG TABLET NGT SCH ×2 (09:56→21:21)
[2020-04-26] MEDS: LACTATED RINGERS SOLUTION 1,000 ML/1,000 ML INFUS.BAG IV SCH (09:56)
[2020-04-26] MEDS: NOREPINEPHRINE D5W PREMIX 16,000 MCG/500 ML BAG IVPB SCH (20:31)
[2020-04-26] MEDS ORDERED: PT OWN MED DRAWER 7, Y5N ONE ×2 (20:59→21:41)
[2020-04-26] MEDS: CHLORHEXIDINE GLUCONATE 4% CLEANSER FOR DECOLONIZATION TP SCH (21:20)
[2020-04-26] MEDS: FENTANYL NS IVPB 500 MCG/100 ML BAG IVPB SCH ×2 (21:20)
[2020-04-26] MEDS: SENNOSIDES 8.8 MG/5 ML BULK BOTTLE PO SCH (21:21)
[2020-04-27] MEDS: LACTATED RINGERS SOLUTION 1,000 ML/1,000 ML INFUS.BAG IV SCH ×2 (03:00→09:48)
[2020-04-27] MEDS: FENTANYL NS IVPB 500 MCG/100 ML BAG IVPB SCH ×3 (03:00→23:52)
[2020-04-27] MEDS: VECURONIUM BROMIDE 100 MG/100 ML BAG IVPB SCH ×3 (04:21→23:51)
[2020-04-27 06:50] LABS: HEMATOCRIT 27.2 % (32.4-45.2); HEMOGLOBIN 8.9 GM/dL (10.7-15.3); MCH 31.5 pg (25.7-33.7); MCHC 32.8 g/dl (32.0-36.0); MEAN CELL VOLUME 96.2 fl (80-96); PLATELET COUNT 522 K/MM3 (134-434); RBC 2.82 M/mm3 (3.60-5.2); RDW 22.7 % (11.6-15.6); WHITE BLOOD COUNT 23.1 K/mm3 (4.0-10.0)
[2020-04-27 06:56] LABS: CHLORIDE 94 mmol/L (98-107); POTASSIUM 3.7 mmol/L (3.5-5.1); SODIUM 135 mmol/L (136-145)
[2020-04-27 07:00] LABS: ANION GAP 5 MMOL/L (8-16); BLOOD UREA NITROGEN 15.4 mg/dL (7-18); CALCIUM 8.1 mg/dL (8.5-10.1); CO2 37 mmol/L (21-32)
[2020-04-27 07:01] LABS: GLUCOSE,RANDOM 92 mg/dL (74-106); MAGNESIUM 1.5 mg/dL (1.8-2.4)
[2020-04-27 07:04] LABS: PHOSPHOROUS 3.1 mg/dL (2.5-4.9)
[2020-04-27 07:06] LABS: CREATININE < 0.2 mg/dL (0.55-1.3)
[2020-04-27] MEDS ORDERED: MAGNESIUM 1GM/D5W 100ML - 100 ML IVPB IVPB ONE (08:00)
[2020-04-27] MEDS ORDERED: PT OWN MED DRAWER 7, Y5N ONE (09:47)
[2020-04-27] MEDS: AMINO ACIDS/PROTEIN HYDROLYS 30 ML LIQUID.PKT PO SCH (09:48)
[2020-04-27] MEDS: MULTIVIT-MINERALS ORAL LIQUID PO SCH (09:48)
[2020-04-27] MEDS: FAMOTIDINE 20 MG TABLET NGT SCH ×2 (09:49→21:29)
[2020-04-27] MEDS: MIDODRINE HCL 5 MG TABLET PO SCH ×3 (09:49→17:45)
[2020-04-27] MEDS: MIDAZOLAM 100 MG/100 ML MG IVPB SCH ×2 (12:58→23:52)
[2020-04-27] MEDS: CHLORHEXIDINE GLUCONATE 4% CLEANSER FOR DECOLONIZATION TP SCH (21:29)
[2020-04-27] MEDS: NOREPINEPHRINE D5W PREMIX 16,000 MCG/500 ML BAG IVPB SCH (21:29)
[2020-04-27] MEDS: SENNOSIDES 8.8 MG/5 ML BULK BOTTLE PO SCH (21:29)
[2020-04-27] MEDS ORDERED: FENTANYL NS IVPB 500 MCG/100 ML BAG IVPB ONE (22:40)
[2020-04-28] MEDS: VECURONIUM BROMIDE 100 MG/100 ML BAG IVPB SCH (06:50)
[2020-04-28] MEDS: LACTATED RINGERS SOLUTION 1,000 ML/1,000 ML INFUS.BAG IV SCH (08:30)
[2020-04-28] MEDS: MIDODRINE HCL 5 MG TABLET PO SCH ×3 (09:11→18:20)
[2020-04-28] MEDS: FAMOTIDINE 20 MG TABLET NGT SCH ×2 (09:12→21:31)
[2020-04-28] MEDS: MULTIVIT-MINERALS ORAL LIQUID PO SCH (09:13)
[2020-04-28] MEDS: AMINO ACIDS/PROTEIN HYDROLYS 30 ML LIQUID.PKT PO SCH (09:13)
[2020-04-28] MEDS ORDERED: MAGNESIUM SULF 50% (8.12 MEQ/2 ML-1 GM VIAL) IVPB ONE (09:45)
[2020-04-28] MEDS: FENTANYL NS IVPB 500 MCG/100 ML BAG IVPB SCH ×3 (14:00→19:48)
[2020-04-28] MEDS: MIDAZOLAM 100 MG/100 ML MG IVPB SCH ×2 (14:00→19:48)
[2020-04-28 14:44] VITALS: BMI 30.4
[2020-04-28] MEDS: NOREPINEPHRINE D5W PREMIX 16,000 MCG/500 ML BAG IVPB SCH ×2 (21:31→22:51)
[2020-04-28] MEDS: CHLORHEXIDINE GLUCONATE 4% CLEANSER FOR DECOLONIZATION TP SCH (21:31)
[2020-04-28] MEDS: SENNOSIDES 8.8 MG/5 ML BULK BOTTLE PO SCH (21:31)
[2020-04-29] MEDS: VECURONIUM BROMIDE 100 MG/100 ML BAG IVPB SCH ×2 (04:38→18:37)
[2020-04-29] MEDS ORDERED: PT OWN MED DRAWER 7, Y5N ONE (09:40)
[2020-04-29] MEDS: MIDODRINE HCL 5 MG TABLET PO SCH ×3 (09:41→17:35)
[2020-04-29] MEDS: FAMOTIDINE 20 MG TABLET NGT SCH ×2 (09:41→21:44)
[2020-04-29] MEDS: AMINO ACIDS/PROTEIN HYDROLYS 30 ML LIQUID.PKT PO SCH (09:42)
[2020-04-29] MEDS: MULTIVIT-MINERALS ORAL LIQUID PO SCH (09:42)
[2020-04-29] MEDS: FENTANYL NS IVPB 500 MCG/100 ML BAG IVPB SCH ×3 (09:42→19:00)
[2020-04-29] MEDS: MIDAZOLAM 100 MG/100 ML MG IVPB SCH (09:42)
[2020-04-29] MEDS: NOREPINEPHRINE D5W PREMIX 16,000 MCG/500 ML BAG IVPB SCH ×2 (09:43→20:00)
[2020-04-29] MEDS: LACTATED RINGERS SOLUTION 1,000 ML/1,000 ML INFUS.BAG IV SCH (12:00)
[2020-04-29] MEDS ORDERED: MIDAZOLAM 100 MG/100 ML MG IVPB ONE ×2 (17:43→20:11)
[2020-04-29] MEDS: MIDAZOLAM 100 MG in SODIUM CHLORIDE 100 ML IVPB SCH (18:36)
[2020-04-29] MEDS: CHLORHEXIDINE GLUCONATE 4% CLEANSER FOR DECOLONIZATION TP SCH (21:43)
[2020-04-29] MEDS: SENNOSIDES 8.8 MG/5 ML BULK BOTTLE PO SCH (21:44)
[2020-04-30] MEDS ORDERED: VASOPRESSIN 20 UNITS/ML VIAL IV ONE ×2 (00:23→05:17)
[2020-04-30] MEDS: VECURONIUM BROMIDE 100 MG/100 ML BAG IVPB SCH (04:00)
[2020-04-30] MEDS: MIDAZOLAM 100 MG in SODIUM CHLORIDE 100 ML IVPB SCH (05:00)
[2020-04-30] MEDS: FENTANYL NS IVPB 500 MCG/100 ML BAG IVPB SCH (05:00)
[2020-04-30] MEDS ORDERED: VASOPRESSIN 40 UNITS in SODIUM CHLORIDE 98 ML IVPB SCH (05:30)
[2020-04-30] MEDS: LACTATED RINGERS SOLUTION 1,000 ML/1,000 ML INFUS.BAG IV SCH ×2 (06:25→08:15)
[2020-04-30 07:18] LABS: BASO % 0.1 % (0-2.0); EOS % 1.1 % (0-4.5); HEMATOCRIT 32.6 % (32.4-45.2); HEMOGLOBIN 9.6 GM/dL (10.7-15.3); LYMPH % 10.3 % (8-40); MCH 30.5 pg (25.7-33.7); MCHC 29.3 g/dl (32.0-36.0); MEAN CELL VOLUME 104.1 fl (80-96); MEAN PLT VOLUME 7.3 fl (7.5-11.1); MONO % 0.9 % (3.8-10.2); NEUT % 87.6 % (42.8-82.8); PLATELET COUNT 330 K/MM3 (134-434); RBC 3.14 M/mm3 (3.60-5.2); RDW 23.3 % (11.6-15.6)
[2020-04-30 07:33] LABS: CHLORIDE 96 mmol/L (98-107); POTASSIUM 4.1 mmol/L (3.5-5.1); SODIUM 137 mmol/L (136-145)
[2020-04-30 07:46] LABS: BLOOD UREA NITROGEN 27.4 mg/dL (7-18)
[2020-04-30 07:48] LABS: BILIRUBIN,TOTAL 0.8 mg/dL (0.2-1)
[2020-04-30 07:49] LABS: ANION GAP 18 MMOL/L (8-16); CALCIUM 8.3 mg/dL (8.5-10.1); CO2 24 mmol/L (21-32); CREATININE 0.5 mg/dL (0.55-1.3); MAGNESIUM 1.8 mg/dL (1.8-2.4); PHOSPHOROUS 6.4 mg/dL (2.5-4.9); SGOT/AST 244 U/L (15-37); SGPT/ALT 60 U/L (13-61)
[2020-04-30] MEDS: AMINO ACIDS/PROTEIN HYDROLYS 30 ML LIQUID.PKT PO SCH (08:00)
[2020-04-30 08:01] LABS: ALBUMIN 0.8 g/dl (3.4-5.0); ALK PHOS 183 U/L (45-117)
[2020-04-30 08:03] LABS: GLUCOSE,RANDOM 29 mg/dL (74-106)
[2020-04-30] MEDS ORDERED: DEXTROSE 50%-WATER - 25 GM/50 ML VIAL IVPUSH ONE (08:04)
[2020-04-30] MEDS ORDERED: DEXTROSE 50%-WATER 25 GM/50 ML DISP.SYRIN ONE (08:08)
[2020-04-30 08:27] LABS: WHITE BLOOD COUNT 44.1 K/mm3 (4.0-10.0)
[2020-04-30] MEDS ORDERED: PT OWN MED DRAWER 7, Y5N ONE ×2 (09:09→09:47)
[2020-04-30] MEDS: MULTIVIT-MINERALS ORAL LIQUID PO SCH (09:24)
[2020-04-30] MEDS: MIDODRINE HCL 5 MG TABLET PO SCH (09:25)
[2020-04-30] MEDS: FAMOTIDINE 20 MG TABLET NGT SCH (09:25)
[2020-04-30] MEDS ORDERED: ENOXAPARIN NA (PORCINE) 80 MG/0.8 ML DISP.SYRIN SQ SCH (10:00)
[2020-04-30 10:54] LABS: ANISOCYTOSIS 1+; MACROCYTOSIS 1+; PLATELET ESTIMATE NORMAL
[2020-04-30 12:59] VITALS: BP 45/36; PULSE 131; TEMP 99.3
[2020-04-30] MEDS ORDERED: HEPARIN NA (PORCINE) 5,000 UNITS/ML 1ML VIAL SQ SCH (14:00)
== END 2020-04-30 12:10 | disposition expired | DRG 951 ==
LOC: JER 10:36 → JERBED 13:41 → J6S 03-07 02:57 → JICU 03-11 18:07
PROVIDERS: ADMIT Internal Medicine; ATTEND Internal Medicine
PROC: 5A1955Z Respiratory Ventilation, Greater than 96 Consecutive Hours (ICD-10-PCS; principal; 2020-03-14)
PROC: 0BH17EZ Insertion of Endotracheal Airway into Trachea, Via Natural or Artificial Opening (ICD-10-PCS; 2020-03-14)
PROC: 0DH67UZ Insertion of Feeding Device into Stomach, Via Natural or Artificial Opening (ICD-10-PCS; 2020-03-14)
PROC: 3E0G76Z Introduction of Nutritional Substance into Upper GI, Via Natural or Artificial Opening (ICD-10-PCS; 2020-03-14)
PROC: B544ZZA Ultrasonography of Left Jugular Veins, Guidance (ICD-10-PCS; 2020-04-04)
PROC: 05H633Z Insertion of Infusion Device into Left Subclavian Vein, Percutaneous Approach (ICD-10-PCS; 2020-04-04)
PROC: B547ZZA Ultrasonography of Left Subclavian Vein, Guidance (ICD-10-PCS; 2020-04-04)
PROC: XW033E5 Introduction of Remdesivir Anti-infective into Peripheral Vein, Percutaneous Approach, New Technology Group 5 (ICD-10-PCS; 2020-04-07)
PROC: XW13325 Transfusion of Convalescent Plasma (Nonautologous) into Peripheral Vein, Percutaneous Approach, New Technology Group 5 (ICD-10-PCS; 2020-04-07)
PROC: 30233N1 Transfusion of Nonautologous Red Blood Cells into Peripheral Vein, Percutaneous Approach (ICD-10-PCS; 2020-04-07)
PROC: 05HN33Z Insertion of Infusion Device into Left Internal Jugular Vein, Percutaneous Approach (ICD-10-PCS; 2020-04-07)
PROC: 05HM33Z Insertion of Infusion Device into Right Internal Jugular Vein, Percutaneous Approach (ICD-10-PCS; 2020-04-17)
PROC: B543ZZA Ultrasonography of Right Jugular Veins, Guidance (ICD-10-PCS; 2020-04-17)
DX: U07.1 COVID-19 (principal); J12.82 Pneumonia due to coronavirus disease 2019; J96.01 Acute respiratory failure with hypoxia; T79.7XXA Traumatic subcutaneous emphysema, initial encounter; I10 Essential (primary) hypertension; D64.9 Anemia, unspecified; R65.21 Severe sepsis with septic shock; E87.6 Hypokalemia; A41.89 Other specified sepsis
CPT/HCPCS: 36415; 36430; 36511; 36600; 71045-TC-FY; 71250-TC; 80048; 80053; 81003; 82272; 82384; 82550; 82553; 82728; 82803; 82962; 83605; 83615; 83735; 84100; 84132; 84484; 85025; 85027; 85379; 85610; 85651; 85730; 86140; 86850; 86900; 86901; 86922; 87040; 87070; 87077; 87086; 87205; 87426; 87804; 87899; 93005; 93010; 93306-TC; 94002; 99285-25; C9399; G0480; J0131; P9016; P9017; P9058